=== PATIENT | male | born 1950 | race Caucasian/White ===

== ENCOUNTER 2022-11-09 15:46 | Inpatient (IN) | payer MEDICARE, SELFPAY ==
[2022-11-09] VITALS (81 sets, daily range): BP systolic 76–140; BP diastolic 43–64; PULSE 103–130; RESP 11–42; TEMP 36.6–39.9; O2SAT 81–100; BMI 24.4; BMI 26.3
--- NOTE | 2022-11-09 15:50 | ECG_ITS ---
[facility] Test Date: 2022-11-09 Pat Name: Uvaldo Barragan Department: Room: Gender: Male Intervention Specialist: : [id number] Requested By: Travis Recinos Order Number: [id number] Hope MD: Davy Sequeira M.D. Measurements Intervals [place] Rate: 110 P: 58 SD: 150 QRS: 50 QRSD: 96 T: 18 QT: 370 QTc: 502 Interpretive Statements SINUS TACHYCARDIA WITH FREQUENT VENTRICULAR PREMATURE COMPLEXES POSSIBLE LEFT ATRIAL ENLARGEMENT [-0.1mV P-WAVE IN V1/V2] NONSPECIFIC ST & T-WAVE ABNORMALITY No previous ECG available for comparison Electronically Signed On 11-09-2022 16:42:49 CDT by Davy Sequeira M.D. [id number] f
--- NOTE | 2022-11-09 15:50 | XRR_ITS ---
PROCEDURE INFORMATION: Exam: XR Chest Exam date and time: 11/09/2022 3:58 PM Age: 72 years old Clinical indication: Cough and dyspnea; Additional info: Dyspnea/cough TECHNIQUE: Imaging protocol: Radiologic exam of the chest. Views: 1 view. COMPARISON: No relevant prior studies available. FINDINGS: Lungs: Unremarkable. No consolidation. Pleural spaces: Unremarkable. No pleural effusion. No pneumothorax. Heart/Mediastinum: Unremarkable. No cardiomegaly. Bones/joints: Unremarkable. XR/XR chest 1V portable [id number] IMPRESSION: No acute findings.
--- NOTE | 2022-11-09 15:53 | ED_ITS ---
HPI - SOB/Dyspnea General: Chief Complaint: Altered Mental Status Stated Complaint: diff breathing. ams Time Seen by Provider: 11/09/22 15:49 Source: patient Mode of arrival: EMS History of Present Illness: HPI Narrative: 72-year-old male presents emergency room with altered mental status cough. He is able to answer some questions states last 2 to 3 days he has not been feeling well. Cough has been nonproductive. Denies abdominal pain does have some upper left chest pain he is complaining of shortness of breath EMS report his blood pressure was in the 60s systolic at the scene as well as a oxygen sat in the 80s he is on a 10L nonrebreather sats are now in the upper 90s. He was given 5 mg of IV push epi in route and has a blood pressure initially of 140 systolic. MD elicited complaint: shortness of breath and cough Onset (ago): day(s) (2-3) Context: recent illness Severity: moderate Exacerbating factors: nothing Relieving factors: nothing Known history of: COPD Associated symptoms: Reports chest congestion, cough and fever(s); Deny abdominal pain, chest pain, diaphoresis, dizziness, extremity pain, hemoptysis, lightheadedness, myalgias, nausea, orthopnea, palpitations, paresthesias, polydipsia, polyuria, rash, sense of impending doom, syncope, vomiting or other Treatment prior to arrival: oxygen Review of Systems Const: Reports: fever(s), chills and malaise; Denies: diaphoresis Card: Denies: chest pain, palpitations, lightheadedness, syncope or orthopnea Resp: Reports: chest congestion; Denies: hemoptysis GI: Denies: abdominal pain, nausea or vomiting Musc: Denies: extremity pain Neuro: Denies: dizziness Endo: Denies: polyuria or polydipsia PFSH ED PFSH: Medical History (Updated 11/10/22 @ 10:23 by Travis Kyle DO) BPH (benign prostatic hyperplasia) Hypertension Surgical History (Updated 11/09/22 @ 18:21 by Fernando Vadlez MD) No pertinent past surgical history Family History (Updated 11/09/22 @ 18:22 by Fernando Valdez MD) Father CAD (coronary artery disease) Cancer Pancreatic cancer Mother Alzheimer's dementia Social History (Updated 11/09/22 @ 18:21 by Fernando Valdez MD) Smoking and tobacco status: never smoked Alcohol intake: never Substance/Drug Use: never Physical Exam Const: GENERAL APPEARANCE: cooperative and comfortable ORIENTATION/C ONSCIOUSNESS: Yes awake, Yes oriented to person, Yes oriented to place and Yes oriented to time HENMT: COMMON NORMALS: normocephalic, atraumatic and hearing grossly normal bilaterally HEAD & SCALP: normocephalic and atraumatic Resp: COMMON NORMALS: normal respiratory effort, No retractions, No use of accessory muscles and clear to auscultation bilaterally AUSCULTATION: clear to auscultation bilaterally Cardio: RATE: tachycardic GI: COMMON NORMALS: Soft to palpation and No hepatosplenomegaly present AUSCULTATION: Yes normoactive bowel sounds PALPATION: Yes Soft to palpation, No Tenderness to palpation present (GI), No Guarding due to palpation present (GI) and Yes No hepatosplenomegaly present Extremity: COMMON NORMALS: normal to inspection, capillary refill normal, no clubbing, cyanosis or edema, no calf tenderness and no pedal edema Neuro: SENSORIUM/ORIENTATION: Yes oriented to person, Yes oriented to place and Yes oriented to time Skin: COMMON NORMALS: no rashes or lesions noted GENERAL SKIN EXAM: no rashes or lesions noted Course Vital Signs: Vital signs: Vital Signs Temperature 98.5 F 11/10/22 04:20 Pulse Rate 100 11/10/22 08:05 Respiratory Rate 30 H 11/10/22 08:00 Blood Pressure 95/58 11/10/22 08:00 Pulse Oximetry 97 11/10/22 08:00 Oxygen Delivery Me thod Nasal Cannula 11/10/22 07:58 Oxygen Flow Rate 4 11/10/22 07:58 MDM - SOB/Dyspnea Medical Decision Making Urine shows cystitis CT. Patient arrived in septic shock with hypoxia. CTA of the chest shows no pulmonary emboli. Possible pneumonitis developing although there is no clear infiltrates. He did respond well to initial fluid bolus he was given fluid beyond the fluid bolus because of acute renal failure suspect that his diarrhea that the reported recently is because significant volume loss. He is also been started on antibiotics. Discussed with hospitalist orders written. Will admit to ICU Medical Records I reviewed the patient's medical records. Lab Data I reviewed the patient's lab results. 11/10/22 02:24 11/10/22 02:24 Labs/Radiology: Radiology Impressions Chest/Abdomen/Pelvis CT 11/09/22 16:28 IMPRESSION: 1. No CTA evidence for proximal segmental or larger pulmonary emboli. Respiratory motion artifact limits definitive exclusion of small peripheral pulmonary emboli. No thoracic aortic aneurysm or thoracic aortic dissection. 2. No regions of consolidation or definite pneumonia. 3. Moderate coronary arterial atherosclerotic vascular calcifications. IMPRESSION: 1. Moderately thickened irregular bladder wall. This is suggestive of cystitis. Recommend correlation with urinalysis findings. 2. Moderate to severely enlarged prostate, as noted above. 3. Possible gallbladder sludge. 4. Left intrarenal calculi, as noted above. No hydronephrosis, ureterectasis or ureteral calculi. 5. Complex left kidney mid zone to lower pole 3.9 x 6.5 x 5.8 cm cyst. Recommend non emergent sonography for further assessment. 6. Other nonacute findings, as noted above. COMMENTS: Consistent with the [place] [employer]'s Incidental Findings Committee white paper (J Am Karis Radiol 2018): Any incidental renal lesion less than 1 cm or classified as too small to characterize, or any incidental cystic renal lesion characterized as simple-appearing, is likely benign. No follow-up imaging is recommended for these lesions per consensus recommendations based on imaging criteria. ADDENDUM: 11/09/22 1834 THIS REPORT CONTAINS FINDINGS THAT MAY BE CRITICAL TO PATIENT CARE. The findings were verbally communicated via telephone conference at 6:32 PM CDT on 11/09/[address] Carina Valdez. The findings were acknowledged and understood. Head CT 11/09/22 16:28 IMPRESSION: No acute intracranial abnormality. Gallbladder Ultrasound 11/09/22 19:51 IMPRESSION: 1. Normal gallbladder. No stones or sludge identified by ultrasound. 2. Negative liver. 3. No bile duct dilatation. Soft Tissue Ultrasound 11/10/22 00:08 IMPRESSION: 1. Moderate amount of edema centered in the supraclavicular region but also extending along the posterior back. There is no focal collection. This edema is also noted on the CT from 11/09/2022. Uncertain etiology. Correlate with possible attempts at vascular access. Consider a small amount of bleeding or cellulitis. The soft tissues edema is in the area of the subclavian and axillary vein and artery. 2. No focal collection. Chest X-Ray 11/10/22 07:00 IMPRESSION: Further mildly decreased lung volumes with mild accentuation of the pulmonary vascularity. Increased mild left basilar atelectasis/interstitial opacities. Renal Ultrasound 11/10/22 08:05 IMPRESSION: 1. No hydronephrosis in either kidney. 2. Bilateral simple cysts as described above largest in the LEFT measuring 4.4 x 4.5 x 5.6 cm in the LEFT mid kidney 3. Merlos catheter. Laboratory Results WBC 9.8 10^3/uL (4.0-10.0) 11/09/22 16:00 RBC 4.85 10^6/uL (4.1-5.3) 11/09/22 16:00 Hgb 14.5 g/dL (11.7-16.6) 11/09/22 16:00 Hct 43.5 % (42.0-52.0) 11/09/22 16:00 MCV 89.7 fl (80-94) 11/09/22 16:00 MCH 29.9 pg (28.0-34.0) 11/09/22 16:00 MCHC 33.3 g/dL (30.0-36.0) 11/09/22 16:00 RDW 13.3 % (12.1-15.1) 11/09/22 16:00 Plt Count 124 10^3/cmm (130-400) L 11/09/22 16:00 MPV 9.8 fL (7.4-10.4) 11/09/22 16:00 Neut % (Auto) 93.6 % 11/09/22 16:00 Lymph % (Auto) 4.1 % 11/09/22 16:00 [place] % (Auto) 1.7 % 11/09/22 16:00 Eos % (Auto) 0.2 % 11/09/22 16:00 Baso % (Auto) 0.2 % 11/09/22 16:00 Neut # (Auto) 9.21 10^3/uL (1.8-7.7) H 11/09/22 16:00 Lymph # (Auto) 0.4 10^3/uL (0.8-4.8) L 11/09/22 16:00 [place] # (Auto) 0.2 10^3/uL (0.2-0.9) 11/09/22 16:00 Eos # (Auto) 0.0 10^3/uL (0.0-0.8) 11/09/22 16:00 Baso # (Auto) 0.0 10^3/uL (0.0-0.1) 11/09/22 16:00 Nucleated RBC % (auto) 0 % 11/09/22 16:00 Nucleated RBCs # 0.0 /100WBC 11/09/22 16:00 Specimen Type Arterial 11/09/22 16:13 Sample Site Radial, left 11/09/22 16:13 ABG pH 7.33 (7.35-7.45) L 11/09/22 16:13 ABG pCO2 25.5 mmHg (35-45) L 11/09/22 16:13 ABG pO2 90.6 mmHg (80.0-100.0) 11/09/22 16:13 ABG HCO3 13.4 mmol/L (22-26) L 11/09/22 16:13 ABG O2 Saturation 97.3 11/09/22 16:13 ABG Base Excess -10.6 mmol/L (-2.0-2.0) L 11/09/22 16:13 Michael Test Pos 11/09/22 16:13 A-a O2 Gradient 3.3 mmHg (5-10) L 11/09/22 16:13 Hematocrit 46.4 % (42-52) 11/09/22 16:13 Hgb O2 Saturation 95.8 % (95-100) 11/09/22 16:13 Carboxyhemoglobin 0.7 %THgb (0.4-20.1) 11/09/22 16:13 Methemoglobin 0.8 % (0.4-1.5) 11/09/22 16:13 Total Hemoglobin 15.1 g/dL (14-18) 11/09/22 16:13 Sodium 138.0 mmol/L (131-143) 11/09/22 16:13 Potassium 3.3 mmol/L (3.5-5.0) L 11/09/22 16:13 Glucose 115.0 mg/dL (70-115) 11/09/22 16:13 Ionized Calcium 1.1 mmol/L (1.1-1.4) 11/09/22 16:13 O2 Delivery Device Nrb 11/09/22 16:13 O2 Liters/Min 9.0 % 11/09/22 16:13 Glass Calibrator ID glc 11/09/22 16:13 Sodium 142 mmol/L (136-145) 11/09/22 16:00 Potassium 3.1 mmol/L (3.5-5.1) L 11/09/22 16:00 Chloride 107 mmol/L (98-107) 11/09/22 16:00 Carbon Dioxide 16 mmol/L (22-29) L 11/09/22 16:00 Anion Gap 22.1 (5-19) H 11/09/22 16:00 BUN 28 mg/dL (8-23) H 11/09/22 16:00 Creatinine 3.1 mg/dL (0.7-1.2) H 11/09/22 16:00 GFR Calculation Not Reportable 11/09/22 16:00 Glucose 104 mg/dL (65-115) 11/09/22 16:00 Calculated Osmolality 300 mOsm/kg (285-295) H 11/09/22 16:00 Lactic Acid 8.3 mmol/L (0.5-2.2) H* 11/09/22 16:00 Calcium 7.6 mg/dL (8.5-10.5) L 11/09/22 16:00 Total Bilirubin 0.7 mg/dL (0.15-1.2) 11/09/22 16:00 AST 30 U/L (0-40) 11/09/22 16:00 ALT 19 U/L (0-41) 11/09/22 16:00 Alkaline Phosphatase 53 U/L (40-130) 11/09/22 16:00 Creatine Kinase 187 U/L (39-308) 11/09/22 16:00 Troponin T Baseline 43 ng/L (0-15) H 11/09/22 16:00 Total Protein 5.1 g/dL (6.6-8.7) L 11/09/22 16:00 Albumin 3.1 g/dL (3.5-5.2) L 11/09/22 16:00 Globulin 2.0 g/dL (1.3-4.6) 11/09/22 16:00 Lipase 60 U/L (13-60) 11/09/22 16:00 Critical Care Time Critical Care Time: Critical Care Time: Yes Total Critical Care Time: 45 Attestation: The high probability of a clinically significant, sudden or life threatening deterioration of the patient's sepsis cardiovascular renal system(s) required my full and direct attention, intervention and personal management. The critical care time is as shown. This time is in addition to time spent performing any reported procedures but includes the following: [x] Data and vital sign review and interpretation [x] Patient assessment, examination and intervention [x] Documentation [x] Medication orders and management Discharge Plan Discharge Patient Disposition: Admitted As Inpatient Admit Provider: Fernando Valdez Clinical Impression: Acute respiratory failure with hypoxia, Acute renal failure, Acute pyelonephritis, Urinary tract infection, Sepsis, Lactic acidosis, Septic shock Condition: Stable Coding Level of Care Code ED Sales Superintendent for Eva Montaño
[2022-11-09 16:23] LABS: ABG PCO2 25.5 mmHg (35-45); ABG PH Result 7.33 (7.35-7.45); Alveolar-Arterial Oxygen Gradi 3.3 mmHg (5-10); Arterial Blood Gas Hematocrit 46.4 % (42-52); Base Excess ABG -10.6 mmol/L (-2.0-2.0); Blood Gas Allen Test Pos; Blood Gas Operator Identificat glc; Blood Gas Sample Site Radial, left; Blood Gas Sample Type Arterial; Carboxyhemoglobin 0.7 %THgb (0.4-20.1); HCO3 ABG 13.4 mmol/L (22-26); HGB O2 Sat 95.8 % (95-100); Ionized Calcium Level - ABG 1.1 mmol/L (1.1-1.4); Methemoglobin 0.8 % (0.4-1.5); Oxygen Device NRB; Oxygen Saturation ABG 97.3; PO2 ABG 90.6 mmHg (80.0-100.0); Potassium Level - ABG 3.3 mmol/L (3.5-5.0); Total Hemoglobin 15.1 g/dL (14-18)
--- NOTE | 2022-11-09 16:28 | CTR_ITS ---
PROCEDURE INFORMATION: Exam: CTA Chest With Contrast Exam date and time: 11/09/2022 5:43 PM Age: 72 years old Clinical indication: Other: Dr requested without a reason given; Fever and shortness of breath; Additional info: Hypoxia TECHNIQUE: Imaging protocol: Computed tomographic angiography of the chest with contrast. Exam focused on the arteries. 3D rendering (Not supervised by radiologist): MIP and/or 3D reconstructed images were created by the technologist. Radiation optimization: All CT scans at this facility use at least one of these dose optimization techniques: automated exposure control; mA and/or kV adjustment per patient size (includes targeted exams where dose is matched to clinical indication); or iterative reconstruction. Contrast material: OMNI 350; Contrast volume: 100 ml; Contrast route: INTRAVENOUS (IV); REPORTING DATA: Count of CT and Cardiac NM exams in prior 12 months: This patient has received 0 known CTs and 0 known cardiac nuclear medicine studies in the 12 months prior to the current study. COMPARISON: CR (CHEST, ) 11/09/2022 3:58 PM RADIATION DOSE METRICS: Total DLP (mGy-cm): 1501 FINDINGS: Pulmonary arteries: No CTA evidence for proximal segmental or larger pulmonary emboli. Respiratory motion artifact limits definitive exclusion of small peripheral pulmonary emboli. Aorta: No thoracic aortic aneurysm. No thoracic aortic dissection. Trachea: The central airway is normal. Lungs: Normal lung volumes. Respiratory motion artifact is seen in the lungs, which limits assessment. Mild dependent atelectasis is seen. No regions of consolidation.No interlobular septal thickening or honeycombing seen to suggest interstitial lung disease on CT. Pleural spaces: No pneumothorax. No pleural effusion. Heart: The heart size is normal. Moderate left coronary arterial atherosclerotic vascular calcifications. Mild mitral annulus ossifications. No pericardial effusion. Normal RV/LV ratio of 0.9. Lymph nodes: No enlarged lymph nodes. Bones/joints: No acute osseous abnormalities seen. Moderate degenerative disc disease changes and small degenerative osteophytes are seen throughout the thoracic spine. There is 0.1 cm anterolisthesis of T4 on T5. Soft tissues: Unremarkable. PROCEDURE INFORMATION: Exam: CT Abdomen And Pelvis With Contrast Exam date and time: 11/09/2022 5:43 PM Age: 72 years old Clinical indication: Other: Dr requested without a reason given; Fever and shortness of breath; Additional info: Hypoxia TECHNIQUE: Imaging protocol: Computed tomography of the abdomen and pelvis with contrast. Radiation optimization: All CT scans at this facility use at least one of these dose optimization techniques: automated exposure control; mA and/or kV adjustment per patient size (includes targeted exams where dose is matched to clinical indication); or iterative reconstruction. Contrast material: OMNI 350; Contrast volume: 100 ml; Contrast route: INTRAVENOUS (IV); REPORTING DATA: Count of CT and Cardiac NM exams in prior 12 months: This patient has received 0 known CTs and 0 known cardiac nuclear medicine studies in the 12 months prior to the current study. COMPARISON: CR (CHEST, ) 11/09/2022 3:58 PM RADIATION DOSE METRICS: Total DLP (mGy-cm): 1501 FINDINGS: Liver: Normal liver attenuation. No mass. Gallbladder and bile ducts: No calcified stones. Some heterogeneous attenuation areas in the gallbladder, suggestive of sludge. No biliary ductal dilatation. Pancreas: Unremarkable CT appearance of the pancreatic parenchyma. No ductal dilatation. Spleen: Normal splenic parenchymal attenuation. No splenomegaly. The spleen measures 9.2 cm in length. Adrenal glands: Normal CT appearance of the adrenals. No mass. Kidneys and ureters: Left kidney upper pole 0.7 x 0.7 cm calculus. Left kidney lower pole 0.2 cm calculus. Left kidney mid zone 0.4 x 0.5 cm calculus. Complex left kidney mid zone to lower pole 3.9 x 6.5 x 5.8 cm cyst is seen with Hounsfield units of 45.2 HU. Recommend non emergent sonography for further assessment. Simple left kidney mid zone 3.1 x 3.1 cm cyst is seen. Simple right kidney mid zone 1.9 x 1.9 cm and left kidney upper pole 1.1 x 1 cm cysts. No hydronephrosis, ureterectasis or ureteral calculi. Stomach and bowel: Mildly distended fluid-filled stomach. The noncontrast opacified small bowel loops appear unremarkable. The noncontrast opacified loops of colon show [id number] proximal sigmoid colonic diverticulosis, without CT evidence of diverticulitis. The lack of orally administered contrast material limits assessment. Appendix: No CT evidence of appendicitis. Intraperitoneal space: No free air. No significant fluid collection. Vasculature: No abdominal aortic aneurysm. IVC and portal venous structures are unremarkable. Lymph nodes: No enlarged lymph nodes. Urinary bladder: Moderately thickened irregular bladder wall is seen. This is suggestive of cystitis. Recommend correlation with urinalysis findings. Reproductive: The prostate demonstrates moderate to severe nonspecific enlargement. The seminal vesicles are normal. Recommend correlation with clinical exam findings and PSA level evaluation. Bones/joints: Severe degenerative disc disease changes with vacuum phenomenon are seen in the mid to lower thoracic spine. Severe degenerative disc disease changes are seen at the L5-S1 level. Mild bilateral hip degenerative changes are seen. Moderate symphysis pubis and sacroiliac joint degenerative changes. Soft tissues: Unremarkable. CT/CT angio chest w abd pel w con IMPRESSION: 1. No CTA evidence for proximal segmental or larger pulmonary emboli. Respiratory motion artifact limits definitive exclusion of small peripheral pulmonary emboli. No thoracic aortic aneurysm or thoracic aortic dissection. 2. No regions of consolidation or definite pneumonia. 3. Moderate coronary arterial atherosclerotic vascular calcifications. IMPRESSION: 1. Moderately thickened irregular bladder wall. This is suggestive of cystitis. Recommend correlation with urinalysis findings. 2. Moderate to severely enlarged prostate, as noted above. 3. Possible gallbladder sludge. 4. Left intrarenal calculi, as noted above. No hydronephrosis, ureterectasis or ureteral calculi. 5. Complex left kidney mid zone to lower pole 3.9 x 6.5 x 5.8 cm cyst. Recommend non emergent sonography for further assessment. 6. Other nonacute findings, as noted above. COMMENTS: Consistent with the [employer]'s Incidental Findings Committee white paper (J Am Karis Radiol 2018): Any incidental renal lesion less than 1 cm or classified as too small to characterize, or any incidental cystic renal lesion characterized as simple-appearing, is likely benign. No follow-up imaging is recommended for these lesions per consensus recommendations based on imaging criteria.
--- NOTE | 2022-11-09 16:28 | CTR_ITS ---
PROCEDURE INFORMATION: Exam: CT Head Without Contrast Exam date and time: 11/09/2022 5:39 PM Age: 72 years old Clinical indication: Altered mental status/memory loss; Additional info: AMS TECHNIQUE: Imaging protocol: Computed tomography of the head without contrast. Radiation optimization: All CT scans at this facility use at least one of these dose optimization techniques: automated exposure control; mA and/or kV adjustment per patient size (includes targeted exams where dose is matched to clinical indication); or iterative reconstruction. REPORTING DATA: Count of CT and Cardiac NM exams in prior 12 months: This patient has received 0 known CTs and 0 known cardiac nuclear medicine studies in the 12 months prior to the current study. COMPARISON: No relevant prior studies available. RADIATION DOSE METRICS: Total DLP (mGy-cm): 1184 FINDINGS: Brain: Normal. No hemorrhage. Unremarkable white matter. No mass effect. Cerebral ventricles: No ventriculomegaly. Paranasal sinuses: Visualized sinuses are unremarkable. No fluid levels. Mastoid air cells: Visualized mastoid air cells are well aerated. Bones/joints: Unremarkable. No acute fracture. Soft tissues: Unremarkable. CT/CT head wo con* [id number] IMPRESSION: No acute intracranial abnormality.
[2022-11-09 16:37] LABS: Basophils % 0.2 %; Eosinophils % 0.2 %; Hematocrit 43.5 % (42.0-52.0); Hemoglobin 14.5 g/dL (11.7-16.6); Lymphocytes # 0.4 10^3/uL (0.8-4.8); Lymphocytes % 4.1 %; Mean Corpuscular HGB Conc 33.3 g/dL (30.0-36.0); Mean Corpuscular Hemoglobin 29.9 pg (28.0-34.0); Mean Corpuscular Volume 89.7 fl (80-94); Mean Platelet Volume 9.8 fL (7.4-10.4); Monocytes # 0.2 10^3/uL (0.2-0.9); Monocytes % 1.7 %; Neutrophils # 9.21 10^3/uL (1.8-7.7); Neutrophils % 93.6 %; Nucleated Red Blood Cells % 0 %; Platelet Count 124 10^3/cmm (130-400); Red Blood Count 4.85 10^6/uL (4.1-5.3); Red Cell Distribution Width 13.3 % (12.1-15.1); White Blood Count 9.8 10^3/uL (4.0-10.0)
[2022-11-09] MEDS: sodium chloride 0.9% 2,449.41 ML 2449.41 ML IV (16:52)
[2022-11-09] MEDS: levofloxacin-dextrose 5 % 750 MG/150 ML PREMIX 100 MG IV (16:54)
[2022-11-09 17:13] LABS: Alanine Aminotransferase 19 U/L (0-41); Albumin Level 3.1 g/dL (3.5-5.2); Alkaline Phosphatase 53 U/L (40-130); Anion Gap 22.1 (5-19); Aspartate Amino Transferase 30 U/L (0-40); Blood Urea Nitrogen 28 mg/dL (8-23); Calcium 7.6 mg/dL (8.5-10.5); Carbon Dioxide 16 mmol/L (22-29); Chloride 107 mmol/L (98-107); Creatine Phosphokinase 187 U/L (39-308); Glucose 104 mg/dL (65-115); Lipase 60 U/L (13-60); Osmolality Calculated 300 mOsm/kg (285-295); Potassium 3.1 mmol/L (3.5-5.1); Sodium 142 mmol/L (136-145); Total Bilirubin 0.7 mg/dL (0.15-1.2); Total Protein 5.1 g/dL (6.6-8.7)
[2022-11-09 17:16] LABS: Troponin(5th) Baseline 43 ng/L (0-15)
[2022-11-09 17:30] LABS: Lactic Sepsis W/Reflex 8.3 mmol/L (0.5-2.2)
[2022-11-09] MEDS: iohexol 350 mg/mL 500 mL Btl (per mL) IV (17:57)
--- NOTE | 2022-11-09 18:01 | USR_ITS ---
PROCEDURE INFORMATION: Exam: US Duplex Lower Extremity Veins, Bilateral Exam date and time: 11/09/2022 6:17 PM Age: 72 years old Clinical indication: Other: Hypoxia, nstemi, AMS; Additional info: Dvt TECHNIQUE: Imaging protocol: Real-time duplex ultrasound of the bilateral extremities with 2-D perez scale, color Doppler flow and spectral waveform analysis including responses to compression and other maneuvers (when performed) with image documentation. Complete exam focused on the lower extremity veins. COMPARISON: CT angio chest PE protcl [id number] 11/09/2022 5:43 PM FINDINGS: Right deep veins: The common femoral, femoral, popliteal and visualized calf/posterior tibial veins are patent without thrombus. Normal Doppler waveforms. Normal compressibility and/or augmentation response. Right superficial veins: Saphenofemoral junction is patent without thrombus. Left deep veins: The common femoral, femoral, popliteal and visualized calf/posterior tibial veins are patent without thrombus. Normal Doppler waveforms. Normal compressibility and/or augmentation response. Left superficial veins: Saphenofemoral junction is patent without thrombus. Soft tissues: Unremarkable. US/[place] [id number] IMPRESSION: No evidence of deep vein thrombosis.
--- NOTE | 2022-11-09 18:13 | PM.HP ---
Providers/Chief Complaint Admitting Physician: Fernando Valdez MD Chief Complaint: diff breathing. ams History of Present Illness Uvaldo Barragan is a 72 year old male with past medical history of hypertension, BPH, who presents to [facility] due to nausea, vomiting, low blood pressures elevated heart rates, lightheadedness, presyncopal episode, increased confusion. Currently patient is alert to person, to place, not to time, he can follow commands, he is only complaint is severe left shoulder pain, he tells me that he has had left shoulder pain for some period of time, but recently the pain has worsened. Patient's is at bedside most the history was provided by patient's , she tells me that he is really in good state of health, no significant health scares, no significant hospitalizations, no underlying cardiovascular history of strokes he was told he was prediabetic, he has been eating healthy with his , and is lost roughly 20 pounds in the last few months. Yesterday he was working outside he mowed the grass he was quite active does tell me that he was using his blow torch, and he inhaled some of the noxious fumes, he did not feel well after, but nonetheless was able to get over it, denies any shortness of breath or chest pain at that time. In the evening time he started to complain of nausea and vomiting and developed 104 fevers, he sleep on separate floors, so he went to bed, in the morning when she went up and checked on him he was confused, he looked pale, diaphoretic, she checked his blood pressure there were low she tells at the top number was low and her heart his heart rates were fast, and he was confused, complained of weakness, both his arms and legs were pale, he did not really complain of shortness of breath that time no chest pain, no nausea overnight, he did have diarrhea overnight he has been vaccinated for COVID, no history of COVID throughout the household, she tells me that he has severe chills in the morning, poor appetite, remained in bed he did try to get up out of bed and slid out of bed and had a presyncopal episode, she does not think he fully passed out. She called the ambulance in the afternoon, and patient was found to be hypotensive was given fluids, was actually given 5 mg of epi, was placed on 10 L nonrebreather, I examined him while he is getting his CAT scans, looks is tachypneic,, has mottling of bilateral extremities, DP PT pulses diminished, capillary refill greater than 2 seconds, he does look flushed,, I asked him if he was out of the sun yesterday he tells me yes, does report severe chills. Patient had blood work done, which showed a lactic acid of 8.3, creatinine of 3.1 anion gap 22.1, bicarb of 16, potassium 3.1 no leukocytosis, platelet count 124, baseline troponin 43, initial chest x-ray no acute infiltrates, EKG shows sinus tachycardia, he is received a CT scan abdomen pelvis, I called the virtual radiology to get a stat read from the CT scan however I was told that currently the radiologist is reading another CAT scan, that I would receive a call back Review of Systems Const: Reports: chills and body aches; Denies: fever(s) Eyes: Denies: change in vision ENMT: Denies: throat pain Card: Reports: pre-syncope; Denies: chest pain, palpitations, edema or dyspnea on exertion Resp: Denies: dyspnea or non-productive cough GI: Reports: nausea and vomiting; Denies: abdominal pain, hematochezia or melena : Denies: flank pain, difficulty urinating, dysuria or urinary frequency Musc: Reports: joint pain; Denies: neck pain or back pain Skin/Breast: Reports: rash Neuro: Denies: headache(s) Endo: Denies: polyuria Darío/Lymph: Denies: easy bruising Medications/Allergies Home Medications Medication Instructions Recorded Confirmed Last Taken Type acetaminophen 325 mg capsule 650 mg PO QID PRN Pain 11/09/22 11/09/22 11/08/22 History (Tylenol) finasteride 5 mg tablet 5 mg PO QPM 11/09/22 11/09/22 Unknown History hydrochlorothiazide 50 mg tablet 25 mg PO BID 11/09/22 11/09/22 Unknown History naproxen sodium 220 mg capsule 220 mg PO Q8H PRN Pain 11/09/22 11/09/22 11/08/22 History (Aleve) nortriptyline 10 mg capsule 30 mg PO DAILY 11/09/22 11/09/22 Unknown History potassium chloride 20 mEq 20 meq PO DAILY 11/09/22 11/09/22 11/09/22 History tablet,extended release(part/cryst) Allergies Allergy/AdvReac Type Severity Reaction Status Date / Time No Known Allergies Allergy Verified 11/09/22 15:51 PFSH Acute PFSH: Medical History (Updated 11/09/22 @ 19:02 by Fernando Valdez MD) BPH (benign prostatic hyperplasia) Hypertension Surgical History (Updated 11/09/22 @ 18:21 by Fernando Valdez MD) No pertinent past surgical history Family History (Updated 11/09/22 @ 18:22 by Fernando Valdez MD) Father CAD (coronary artery disease) Cancer Pancreatic cancer Mother Alzheimer's dementia Social History (Updated 11/09/22 @ 18:21 by Fernando Valdez MD) Smoking and tobacco status: never smoked Alcohol intake: never Substance/Drug Use: never Vitals/I&O/Wt Last Vital Signs Temp 97.9 F 11/09/22 15:49 Pulse 113 H 11/09/22 17:30 Resp 27 H 11/09/22 17:30 BP 97/56 11/09/22 17:30 Pulse Ox 99 11/09/22 17:30 O2 Del Method Non-Rebreather 11/09/22 16:02 O2 Flow Rate 10 11/09/22 16:02 Weight last 48 hrs Weight 81.647 kg Physical Exam Const: COMMON NORMALS: alert EXAM LIMITATIONS: altered mental status GENERAL APPEARANCE: cooperative, well kempt and well developed ORIENTATION/CONSCIOUSNESS: Yes awake, Yes oriented to person and Yes oriented to place; not oriented to time HENMT: COMMON NORMALS: normocephalic, Normal external nose present and oropharynx normal HEAD & SCALP: normocephalic FACE & SINUS: normal facial exam NOSE: Normal external nose present MOUTH: Normal oral and palatal mucosa present THROAT: posterior oropharynx normal Eye: COMMON NORMALS: Equal, round and reactive pupils present, EOMs intact bilaterally, conjunctivae normal and no scleral icterus CONJUNCTIVA: Yes conjunctivae normal PUPIL: Yes Equal, round and reactive pupils present Neck/C-Spine: COMMON NORMALS: full ROM, no lymphadenopathy, no meningeal signs, Thyroid normal and No carotid bruits Lymph: LYMPHATIC: no lymphadenopathy noted Chest: COMMONS NORMALS: normal inspection of the chest Resp: COMMON NORMALS: normal respiratory effort, No retractions, No use of accessory muscles and clear to auscultation bilaterally AUSCULTATION: clear to auscultation bilaterally OTHER: Has tachypnea Cardio: COMMON NORMALS: regular rhythm, S1 normal heart sound present, S2 normal heart sound present, No murmurs present (Cardio) and Peripheral pulses 2+ throughout RATE: tachycardic RHYTHM: regular rhythm HEART SOUNDS: S1 normal heart sound present and S2 normal heart sound present PERIPHERAL PULSES: Peripheral pulses 2+ throughout GI: COMMON NORMALS: Normal to inspection, nondistended, normoactive bowel sounds present, Soft to palpation, non-tender, No hepatosplenomegaly present and no masses : COMMON NORMALS: Yes no CVA tenderness BLADDER/KIDNEY EXAM: Yes no CVA tenderness Back/Pelvis: COMMON NORMALS: no CVA tenderness Neuro: COMMON NORMALS: patient oriented x3, CN's II-XII intact bilaterally, moves all extremities, no focal motor deficits and no sensory deficits noted MENINGEAL SIGNS: Yes no meningeal signs Psych: COMMON NORMALS: mental status grossly normal, Normal thought process present, cooperative and speech normal APPEARANCE: Yes well kempt SPEECH: Yes normal speech THOUGHT PROCESS: Normal thought process present Skin: COMMON NORMALS: turgor normal and no jaundice NARRATIVE SKIN EXAM: Face, anterior chest, appear flushed, red has conjunctival injection GENERAL SKIN EXAM: turgor normal Sepsis: Is patient septic: Yes Focused sepsis exam performed: Yes Focused sepsis exam: DP PT pulses diminished bilaterally, capillary refill greater than 2 seconds, bilateral lower extremity mottling up to the level of the thighs,, tachypnea, tachycardia, encephalopathy, Data 11/09/22 16:00 11/09/22 16:00 Micro: Microbiology 11/09/22 16:07 Blood Culture - Preliminary Blood SPECIMEN COLLECTED 11/09/22 16:07 Blood Culture - Preliminary Blood SPECIMEN COLLECTED A&P Assessment and plan (1) Acute pyelonephritis: (2) Urinary tract infection: (3) Acute encephalopathy: (4) Lactic acidosis: (5) Metabolic acidosis: (6) Septic shock: (7) Acute renal failure: (8) Hypokalemia: (9) NSTEMI (non-ST elevated myocardial infarction): (10) Gallbladder sludge: (11) Left renal stone: (12) Enlarged prostate: (13) Acute respiratory failure with hypoxia: (14) Aspiration pneumonia: (15) Aspiration pneumonitis: (16) Goals of care, counseling/discussion: (17) Urinary retention: (18) Sepsis: Plan Acute hypoxic respiratory failure -Potentially secondary to aspiration pneumonia, aspiration pneumonitis -The other thought is it could be a toxic inhalation, from the fumes he inhaled yesterday afternoon Plan -We will monitor respiratory status closely -Low threshold for intubation -Respiratory therapy eval, DuoNeb treatments -On broad-spectrum antibiotic therapy -Sputum cultures, blood cultures Urinary tract infection, with acute pyelonephritis, -With underlying enlarged prostate, with concerns for urinary retention -Follow urine cultures, blood cultures -Pro-Joseph 90, CRP 106 -Follow UA -Follow blood cultures -Follow urine cultures -Continue vancomycin, Zosyn -Monitor creatinine, monitor urine output -Spoke to Dr. Pulido urology, given his left hydronephrosis and lactic acidosis, his septic shock, and I want to make sure that he does not have any stentable pathology, no underlying abscess, or obstructive uropathy. Although I spoke to virtual radiology, who advised me that there was no hydronephrosis, but did have a left kidney stone Septic shock -Likely multifactorial from UTI, pyelonephritis, respiratory failure, aspiration pneumonia -Has received sepsis bolus and blood pressures have improved 101/53 alert and awake following commands although tachycardic, tachypneic -Sepsis criteria met with lactic acidosis, shock, 10 L -Currently on fluid therapy -Stress dose steroids -Albumin therapy -Antibiotics as above -PICC line be placed, maintain MAP greater than 65 Levophed if needed NSTEMI -Serial EKGs, serial troponins, telemetry monitoring -Likely secondary to septic shock, sepsis, acute pyelonephritis -However cannot rule out underlying kidney etiology -Continue to monitor telemetry, troponins Acute renal failure --Likely sec to urinary tension, dehydration, sepsis -Monitor urine output, monitor lactic acids, monitor creatinine Acute encephalopathy, likely secondary to sepsis, UTI, aspiration pneumonia, sepsis shock Metabolic acidosis, will give 1 amp of bicarb Hypoalbuminemia, albumin therapy Hypokalemia, will replace IV Lactic acidosis, secondary to septic shock, secondary to UTI, aspiration pneumonia as above trend lactic acids Left kidney stone Moderate to severely enlarged prostate, will monitor, might require a prostatic ultrasound to evaluate for prostatic abscess based on clinical progress Goals of care discussion, spoke to patient's , he is a full code however he does have paperwork filled out for his living well, he does not want life-sustaining measures if there is no likelihood of meaningful recovery Lovenox for DVT prophylaxis Full code Spoke to patient, spoke to , spoke to radiologist at [facility], spoke to urology, spoke to ER physician, spoke to nursing staff Attestations Medical Necessity Statement*: Patient requires hospitalization, inpatient, greater than 2 midnights, for sepsis, septic shock, UTI, pyelonephritis, enlarged prostate, urinary retention, left kidney stone, acute respiratory failure, aspiration, aspiration pneumonitis, lactic acidosis, acute renal failure, metabolic acidosis, Coding Level of Care Code Critical Care >/= 30 minutes Critical care time (in minutes): 120 The high probability of a clinically significant, sudden or life threatening deterioration, as referenced in this documentation, required my full and direct attention, intervention and personal management. The critical care time shown is in addition to time spent performing any reported separately billable procedures and includes the following: [x] Data and vital sign review and interpretation [x] Patient assessment, examination and intervention [x] Medication orders and management [x] Patient/Family updates as able [x] Care Coordination and Documentation. Diagnoses Acute pyelonephritis N10 Urinary tract infection N39.0 Acute encephalopathy G93.40 Lactic acidosis E87.20 Metabolic acidosis E87.20 Septic shock A41.9; R65.21 Acute renal failure N17.9 Hypokalemia E87.6 NSTEMI (non-ST elevated myocardial infarction) I21.4 Gallbladder sludge K82.8 Left renal stone N20.0 Enlarged prostate N40.0 Acute respiratory failure with hypoxia J96.01 Aspiration pneumonia J69.0 Aspiration pneumonitis J69.0 Goals of care, counseling/discussion Z71.89 Urinary retention R33.9 Sepsis A41.9
[2022-11-09 18:17] LABS: Reflex Lactate Order REFLEX LACTIC ORDERD
[2022-11-09 18:22] LABS: Erythrocyte Sedimentation Rate < 1 mm/hr (0-10)
[2022-11-09 18:39] LABS: Troponin 5 2HR 38.44 ng/L (0-15); Troponin 5 2HR Delta -4.56 ABS# (0-10)
[2022-11-09 18:40] LABS: C Reactive Protein 106.7 mg/L (0.0-4.9)
[2022-11-09 18:48] LABS: Procalcitonin 90.38 ng/mL (0-0.5)
[2022-11-09 19:16] LABS: Bilirubin Urine 1+ (Negative); Blood Urine 3+ (Negative); Glucose Urine UA Norm (Normal); Ketones Urine 1+ (Negative); Nitrate Urine Negative (Negative); Protein Urine 2+ (Negative); Urine Appearance Cloudy (CLEAR); Urine Color Dark Yellow (Yellow); pH Urine 5 (5-7)
[2022-11-09 19:17] LABS: Add Urine Culture? Yes; Add Urine Microscopic? YES; Bacteria Urine 2+ /hpf; Leukocyte Esterase Urine 2+ (Negative); Urobilinogen Urine Norm (Negative); WBC Urine TOO NUMEROUS TO CNT /hpf (0-5)
[2022-11-09 19:24] LABS: Magnesium 1.2 mg/dL (1.7-2.3)
--- NOTE | 2022-11-09 19:51 | US_ITS ---
WS: [id number] RIGHT UPPER QUADRANT ULTRASOUND HISTORY: sludge COMPARISON: CT 11/09/2022 Liver: 15.0 cm in length. Normal size liver and echogenicity. No bile duct dilatation or mass. Portal Vein: Normal hepatopetal flow with monophasic waveform. Gallbladder: Normally distended gallbladder with no stones or wall thickening. No sludge identified b y ultrasound. Gallbladder wall is top normal size. No adjacent edema. CBD: 0.5 cm Pancreas: Completely obscured. Right kidney: 11.2 cm in length. Normal size and echogenicity. No hydronephrosis or mass. Central pel brandon cyst with a maximum diameter of 1.7 cm. Aorta and IVC: Unremarkable abdominal aorta and IVC. No ascites. US/US gall bladder [id number] IMPRESSION: 1. Normal gallbladder. No stones or sludge identified by ultrasound. 2. Negative liver. 3. No bile duct dilatation.
[2022-11-09 20:17] LABS: Cortisol Random 44.37 ug/dL (2.47-19.5)
--- NOTE | 2022-11-09 20:36 | XRR_ITS ---
PROCEDURE INFORMATION: Exam: XR Chest Exam date and time: 11/09/2022 7:37 PM Age: 72 years old Clinical indication: Device placement; Picc; Additional info: Dyspnea/cough TECHNIQUE: Imaging protocol: Radiologic exam of the chest. Views: 1 view. COMPARISON: CR (CHEST, ) 11/09/2022 3:58 PM FINDINGS: Tubes, catheters and devices: There has been placement of a right upper extremity PICC line catheter with tip overlying the lower superior vena cava region. Lungs: There are mildly decreased lung volumes with mild accentuation of the pulmonary vascularity. There are no confluent interstitial or airspace opacities. Pleural spaces: There are no pleural effusions or pneumothorax. Heart/Mediastinum: The heart size is normal. There is a mildly tortuous thoracic aorta. The trachea is in the midline. Bones/joints: No acute abnormalities. Mild shoulder degenerative changes are seen. Soft tissues: Multiple external leads are seen overlying the chest, limiting assessment. XR/XR chest 1V portable [id number] IMPRESSION: 1. Mildly decreased lung volumes with mild accentuation of the pulmonary vascularity. No confluent infiltrates in the lungs. 2. Interval placement of a right upper extremity PICC line catheter with tip overlying the lower superior vena cava region.
--- NOTE | 2022-11-09 20:38 | PC.NURSE ---
Consulted by house charge for picc placement. Consent obtained by myself, patient, an . All risk an benefits discussed. Risk included dvt and infection. RUE scanned with US an basilic vein was the best option. Vein was straight, 5 mm, an free of visible clot. Pt draped in usual sterile fashion. Using real time US lidocaine injected, vein accessed, and picc floated into position. Chest xray obtained and waiting on tip confirmation. EBL less then 5 ml. No bleeding no hematoma. Pt arm circumference is 29 cm at 10 cm above the ac fossa.
[2022-11-09 20:46] LABS: Reflex Lactate Order REFLEX LACTIC ORDERD
[2022-11-09 21:00] LABS: Lactate (Lactic Acid level) 3.1 mmol/L (0.5-2.2)
[2022-11-09 21:01] LABS: Troponin 5 6HR 46.96 ng/L (0-15)
[2022-11-09 21:04] LABS: Estmated Average Glucose 117; Hemoglobin A1C 5.7 % (4.0-6.0)
[2022-11-09 21:10] LABS: Chol HDL Ratio 3.15 mg/dL (1.0-5.00); Cholesterol 129 mg/dL (0-200); HDL Cholesterol 41 mg/dL (60-100); LDL Cholesterol Calculated 73 mg/dL (50-129); LDL HDL Ratio 1.78 RATIO (0.00-3.22); Thyroid Stimulating Hormone 2.17 uIU/mL (0.27-4.20); Triglycerides 75 mg/dL (0-150)
[2022-11-09 21:12] LABS: Troponin 5 6HR Delta 3.96 ng/L (0-12)
[2022-11-09] MEDS: sodium bicarbonate 1 mEq/mL SDV 50mL 50 MEQ IVP (21:20)
[2022-11-09] MEDS: meropenem 1,000 MG in sodium chloride 0.9% (plus) 50 ML 100 MG IV (21:20)
[2022-11-09] MEDS: lidocaine 1% 5 ML in potassium chloride premix 100 ML 26.25 ML IV (21:21)
[2022-11-09] MEDS: sodium chloride 0.9% 1,000 ML 125 ML IV (21:22)
[2022-11-09] MEDS: pantoprazole 40 mg SDV IVP (21:22)
[2022-11-09] MEDS: enoxaparin 40 mg/0.4 mL Syringe SUBCUT (21:23)
[2022-11-09] MEDS: albumin 25 G/100 ML BAG 60 G IV (21:23)
[2022-11-09] MEDS: sodium chloride 0.9% 1,000 ML 150 ML IV (21:50)
[2022-11-09 21:58] LABS: Adenovirus Not Detected (NOT DETECT); Chlamydia Pneumoniae Not Detected (NOT DETECT); Coronavirus 229E,HKU1,NL63,OC4 Not Detected (NOT DETECT); Human Metapneumovirus Not Detected (NOT DETECT); Human Rhinovirus/Enterovirus Not Detected (NOT DETECT); Influenza A Not Detected (NOT DETECT); Influenza A H1 Not Detected (NOT DETECT); Influenza A H1-2009 Not Detected (NOT DETECT); Influenza A H3 Not Detected (NOT DETECT); Influenza B Not Detected (NOT DETECT); Mycoplasma Pneumoniae Not Detected (NOT DETECT); Parainfluenza Virus Type 1 Not Detected (NOT DETECT); Parainfluenza Virus Type 2 Not Detected (NOT DETECT); Parainfluenza Virus Type 3 Not Detected (NOT DETECT); Parainfluenza Virus Type 4 Not Detected (NOT DETECT); Respiratory Syncytial Virus A Not Detected (NOT DETECT); Respiratory Syncytial Virus B Not Detected (NOT DETECT); SARS-COV-2 Not Detected (NOT DETECT)
[2022-11-09 22:16] LABS: INR 1.82 (0.8-1.2)
[2022-11-09 22:17] LABS: Fibrinogen 384 mg/dL (174-498); Partial Thromboplastin Time 40.1 SECONDS (23.9-36.7)
--- NOTE | 2022-11-09 22:25 | PC.PHAR ---
Pharmacokinetic dosing service Date: 11/09/22 Time: 2224 Objective: Patient: RENA HINOJOSA Floor: ICU-9 Age: 72 yo Serum creatinine: 3.1 mg/dL Height: 72.0 Inches Weight (kg): 81.647 Diagnosis: Relevant medical/social history: Cultures and sensitivities: Other labs: Assessment: IBW (kg): 77.60 Dosing wt(kg): 81.647 Estimated Creatinine clearance (ml/min): 24.0 CRCL method: Cockcroft and Gault using ibw(default). Drug selected: Vancomycin Loading dose (mg): 0 Vd (liters): 73.5 (factor used: 0.9 L/kg) Ismael (hr-1): 0.024 Half life (hrs): 28.88 Recommended dose: 1250 mg Interval: 36 hrs Infusion time (hrs): 1.5 Predicted peak (mcg/mL): 28.9 Predicted trough (mcg/mL): 12.63 Total body weight is being used for vancomycin dosing. Renal function is stable [ ] /unstable [ ] Recommendations: Give Vancomycin 1250 mg q 36 hrs with an expected Cpeak of 28.9 mcg/ml and an expected Ctrough of 12.63 mcg/ml Renal dosing of other antibiotics (review renal dosing of other medications and list guidelines here): Thank you for the consult, will continue to follow. Signature: Amena Recinos [facility]
[2022-11-09 22:27] LABS: D Dimer 12.26 ug/mIFEU (0-0.59)
[2022-11-09] MEDS: vancomycin 1,250 MG/250 ML PIGGYBACK 250 MG IV (23:05)
[2022-11-09] MEDS: acetaminophen 325 mg Tablet 650 MG PO (23:05)
[2022-11-09] MEDS: ipratropium-albuterol 3 mL Neb INHALATION (23:06)
--- NOTE | 2022-11-09 23:12 | ECG_ITS ---
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 Measurements Intervals Clarence Rate: 112 P: 42 AK: 150 QRS: 29 QRSD: 82 T: 34 QT: 321 QTc: 439 Interpretive Statements SINUS TACHYCARDIA NONSPECIFIC T-WAVE ABNORMALITY ABNORMAL RHYTHM ECG Compared to ECG 11/09/2022 15:55:05 Ventricular premature complex(es) no longer present T-wave abnormality still present Electronically Signed On 11-10-2022 5:49:45 CDT by Trisha Vences M.D. [id number]
[2022-11-10] VITALS (223 sets, daily range): BP systolic 78–134; BP diastolic 47–87; PULSE 64–117; RESP 12–41; TEMP 36.9; O2SAT 84–100
--- NOTE | 2022-11-10 00:08 | US_ITS ---
WS: [id number] ULTRASOUND SOFT TISSUES LEFT supraclavicular region. HISTORY: Fluid filled collection by left shoulder COMPARISON: None available. TECHNIQUE: 2-D and color Doppler imaging is submitted. Ultrasound directed to the LEFT supraclavicular area in the region of swelling. There is soft tissue edema but no focal collection. Edema is interspersed throughout the soft tissues. Fluid and edema ext ends into the posterior upper LEFT back. There is soft tissue edema was also noted on the CT of 11/09/2022. There is a large amount of edema in the supraclavicular region on the LEFT. The entire extent is not included and extends superior into t he neck. There is edema interspersed within the fat. US/US soft tissue/extremity [id number] IMPRESSION: 1. Moderate amount of edema centered in the supraclavicular region but also ex tending along the posterior back. There is no focal collection. This edema is a lso noted on the CT from 11/09/2022. Uncertain etiology. Correlate with possible attempts at vascular access. Consider a small amount of bleeding or cellulitis. The soft tissues edema is in the area of the subclavian and axillary vein and artery. 2. No focal collection.
[2022-11-10 00:13] LABS: ABG PCO2 22.7 mmHg (35-45); ABG PH Result 7.39 (7.35-7.45); Alveolar-Arterial Oxygen Gradi 3.8 mmHg (5-10); Arterial Blood Gas Hematocrit 43.3 % (42-52); Blood Gas Allen Test Pos; Blood Gas Sample Site Radial, right; Blood Gas Sample Type Arterial; Carboxyhemoglobin 0.9 %THgb (0.4-20.1); HCO3 ABG 13.8 mmol/L (22-26); HGB O2 Sat 96.4 % (95-100); Methemoglobin 1.2 % (0.4-1.5); Oxygen Device OXY MASK; Oxygen Saturation ABG 98.5; PO2 ABG 90.3 mmHg (80.0-100.0); Potassium Level - ABG 4.2 mmol/L (3.5-5.0); Total Hemoglobin 14.1 g/dL (14-18)
[2022-11-10] MEDS: acetaminophen 1,000 MG/100 ML PIGGYBACK 400 MG IV (00:30)
[2022-11-10 00:55] LABS: Basophils % 0.2 %; Hematocrit 39.7 % (42.0-52.0); Hemoglobin 13.5 g/dL (11.7-16.6); Lymphocytes # 0.2 10^3/uL (0.8-4.8); Lymphocytes % 2.1 %; Mean Corpuscular Hemoglobin 29.2 pg (28.0-34.0); Mean Corpuscular Volume 85.7 fl (80-94); Mean Platelet Volume 10.4 fL (7.4-10.4); Monocytes # 0.3 10^3/uL (0.2-0.9); Monocytes % 2.5 %; Neutrophils % 94.5 %; Nucleated Red Blood Cells % 0 %; Platelet Count 107 10^3/cmm (130-400); Red Blood Count 4.63 10^6/uL (4.1-5.3); Red Cell Distribution Width 13.4 % (12.1-15.1); White Blood Count 11.4 10^3/uL (4.0-10.0)
[2022-11-10] MEDS: sodium bicarbonate 150 MEQ in dextrose 5% 1,000 ML 100 MEQ IV ×3 (01:02→21:52)
[2022-11-10 01:12] LABS: Alanine Aminotransferase 20 U/L (0-41); Alkaline Phosphatase 41 U/L (40-130); Anion Gap 19.4 (5-19); Aspartate Amino Transferase 45 U/L (0-40); Blood Urea Nitrogen 36 mg/dL (8-23); Calcium 7.1 mg/dL (8.5-10.5); Carbon Dioxide 14 mmol/L (22-29); Chloride 108 mmol/L (98-107); Globulin 1.9 g/dL (1.3-4.6); Glucose 62 mg/dL (65-115); Osmolality Calculated 290 mOsm/kg (285-295); Potassium 4.4 mmol/L (3.5-5.1); Sodium 137 mmol/L (136-145); Total Bilirubin 0.8 mg/dL (0.15-1.2); Total Protein 4.9 g/dL (6.6-8.7)
[2022-11-10 01:19] LABS: Slide Review Slide Review Perform
[2022-11-10 02:52] LABS: Basophils % 0.3 %; Hematocrit 40.6 % (42.0-52.0); Hemoglobin 13.3 g/dL (11.7-16.6); Lymphocytes # 0.3 10^3/uL (0.8-4.8); Lymphocytes % 2.5 %; Mean Corpuscular HGB Conc 32.8 g/dL (30.0-36.0); Mean Corpuscular Hemoglobin 28.7 pg (28.0-34.0); Mean Corpuscular Volume 87.7 fl (80-94); Mean Platelet Volume 10.3 fL (7.4-10.4); Monocytes # 0.3 10^3/uL (0.2-0.9); Monocytes % 2.5 %; Neutrophils # 12.68 10^3/uL (1.8-7.7); Neutrophils % 93.1 %; Nucleated Red Blood Cells % 0 %; Platelet Count 112 10^3/cmm (130-400); Red Blood Count 4.63 10^6/uL (4.1-5.3); Red Cell Distribution Width 13.5 % (12.1-15.1); White Blood Count 13.6 10^3/uL (4.0-10.0)
[2022-11-10 03:00] LABS: INR 2.18 (0.8-1.2)
[2022-11-10] MEDS: ipratropium-albuterol 3 mL Neb INHALATION ×4 (03:00→20:15)
[2022-11-10 03:15] LABS: Alanine Aminotransferase 22 U/L (0-41); Albumin Level 2.9 g/dL (3.5-5.2); Alkaline Phosphatase 42 U/L (40-130); Anion Gap 20.5 (5-19); Aspartate Amino Transferase 49 U/L (0-40); Blood Urea Nitrogen 39 mg/dL (8-23); C Reactive Protein 149.2 mg/L (0.0-4.9); Carbon Dioxide 14 mmol/L (22-29); Chloride 109 mmol/L (98-107); Globulin 1.8 g/dL (1.3-4.6); Glucose 79 mg/dL (65-115); Magnesium 1.2 mg/dL (1.7-2.3); Osmolality Calculated 296 mOsm/kg (285-295); Phosphorus 2.8 mg/dL (2.5-4.5); Potassium 4.5 mmol/L (3.5-5.1); Sodium 139 mmol/L (136-145); Total Bilirubin 0.8 mg/dL (0.15-1.2); Total Protein 4.7 g/dL (6.6-8.7)
[2022-11-10] MEDS: meropenem 1,000 MG in sodium chloride 0.9% (plus) 50 ML 100 MG IV ×2 (03:17→15:48)
[2022-11-10] MEDS: albumin 25 G/100 ML BAG 60 G IV ×3 (03:17→19:38)
[2022-11-10 03:18] LABS: Lactic Sepsis W/Reflex 3.2 mmol/L (0.5-2.2)
[2022-11-10 03:27] LABS: Slide Review Slide Review Perform
[2022-11-10 03:44] LABS: ABG PCO2 26.9 mmHg (35-45); ABG PH Result 7.32 (7.35-7.45); Arterial Blood Gas Hematocrit 41.8 % (42-52); Base Excess ABG -10.5 mmol/L (-2.0-2.0); Blood Gas Allen Test Pos; Blood Gas Sample Site Radial, right; Blood Gas Sample Type Arterial; Oxygen Device NC; PO2 ABG 86.9 mmHg (80.0-100.0)
[2022-11-10 04:32] LABS: Reflex Lactate Order REFLEX LACTIC ORDERD
[2022-11-10 04:34] LABS: Procalcitonin > 100.00 ng/mL (0-0.5)
[2022-11-10] MEDS: sodium chloride 0.9% 1,000 ML 150 ML IV (05:09)
--- NOTE | 2022-11-10 07:00 | XRR_ITS ---
PROCEDURE INFORMATION: Exam: XR Chest Exam date and time: 11/10/2022 5:37 AM Age: 72 years old Clinical indication: Shortness of breath; Additional info: SOB TECHNIQUE: Imaging protocol: Radiologic exam of the chest. Views: 1 view. COMPARISON: CR (CHEST, ) 11/09/2022 7:37 PM FINDINGS: Tubes, catheters and devices: Right upper extremity PICC line catheter is seen with tip overlying the right atrium. Lungs: There are further mildly decreased lung volumes with mild accentuation of the pulmonary vascularity. Increased mild left basilar atelectasis/interstitial opacities. Pleural spaces: There are no pleural effusions or pneumothorax. Heart/Mediastinum: The heart size is normal. There is a mildly tortuous thoracic aorta. The trachea is in the midline. Bones/joints: No acute abnormalities. XR/XR chest 1V portable [id number] IMPRESSION: Further mildly decreased lung volumes with mild accentuation of the pulmonary vascularity. Increased mild left basilar atelectasis/interstitial opacities.
[2022-11-10 07:29] LABS: Lactate (Lactic Acid level) 4.2 mmol/L (0.5-2.2)
--- NOTE | 2022-11-10 08:05 | US_ITS ---
WS: [id number] ULTRASOUND RENAL TECHNIQUE: Ultrasound examination of both kidneys. CLINICAL INFORMATION: anu COMPARISON: None. FINDINGS: RIGHT: Simple RIGHT renal cyst mid kidney measuring 1.3 x 1.6 x 1.6 cm Right kidney is normal in size and appearance. Echogenicity: Normal. Cortical thickness: 1.7 cm; Normal. Hydronephrosis: None. Perinephric fluid: None. Right kidney measures: 12.1 cm x 6.6 cm x 5.5 cm. LEFT: Simple cyst measuring 4.4 x 4.5 x 5.6 cm in the LEFT mid kidney. Left kidney is normal in size and appearance. Echogenicity: Normal. Cortical thickness: 1.0 cm; Normal. Hydronephrosis: None. Perinephric fluid: Trace free fluid inferior LEFT kidney Left kidney measures: 12.5 cm x 5.8 cm x 6.7 cm. Aorta not seen due to bowel gas. Merlos catheter. US/US renal BI* [id number] IMPRESSION: 1. No hydronephrosis in either kidney. 2. Bilateral simple cysts as described above largest in the LEFT measuring 4.4 x 4.5 x 5.6 cm in the LEFT mid kidney 3. Merlos catheter.
--- NOTE | 2022-11-10 08:56 | CT_ITS ---
WS: [id number] CT NECK TECHNIQUE: Noncontrast CT of the neck with coronal and sagittal reformatted images. CLINICAL INFORMATION: sob COMPARISON: None. DLP: 339.[address] scans at [facility] use at least one of these dose optimization techniques: automated e xposure control; mA and/or kV adjustment per patient size (includes targeted exams where dose is matc hed to clinical indication); or iterative reconstruction. FINDINGS: Exam limited due to inability to give contrast due to renal function Diffuse subcutaneous and deep soft tissue edema and induration involving the LEFT neck. Fluid in the posterior cervical space extends from the skull base to the upper back. No drainable fluid collection s. A few reactive lymph nodes. Findings suspicious for superficial and deep soft tissue infection wit h cellulitis. Soft tissue edema and induration extends into the LEFT upper chest and LEFT axilla. Minimal induratio n extending to the thoracic inlet. No mediastinal abscess. Lung apices are well aerated. Bibasilar atelectasis. Straightening of the normal cervical lordosis. M oderate spondylitic changes cervical spine. Disc osteophyte complexes worse at C5-C6 and C6-C7 with m oderate central canal stenosis worse at C5-C6 with indentation on the RIGHT ventral cervical cord. Ad vanced LEFT facet arthropathy C3-C4. Multilevel bony foraminal narrowing worse at LEFT C3-C4, bilater al C5-C6 and severe LEFT C6-C7. Prominent pannus C1-C2 articulation. Trace prevertebral fluid. No prevertebral or retropharyngeal abscess Mild mucosal thickening in the ethmoid air cells. Mucosal thickening RIGHT greater than LEFT frontal ethmoidal recesses. Normal sphenoid sinuses. Mastoid air cells well aerated. Dental artifact degrades images at the tongue base. Normal parapharyngeal fat. Submandibular glands are normal. Normal paroti d glands. Posterior nasopharynx is patent. No evidence of supraglottic or glottic mass. Subglottic ai rway is patent. Mild ballooning of the RIGHT laryngeal ventricle can be seen with RIGHT vocal cord pa ralysis. Recommend direct visualization. Noncontrast thyroid gland appears grossly normal. Carotid bulb calcification. RIGHT central venous ca theter with tip in the RIGHT atrium. CT/CT neck wo con [id number] IMPRESSION: 1. Diffuse soft tissue edema extending from the LEFT posterior paravertebral c ervical space at the skull base to the upper chest and upper back with fluid an d soft tissue induration. Correlation for infection with cellulitis. Recommend MRI cervical spine without and with gadolinium enhancement to exclude cervical spine or LEFT facet involvement 2. No drainable fluid collections on this noncontrast study. 3. Reactive LEFT cervical lymph nodes. 4. Moderate to severe central canal stenosis due to disc osteophyte complexes at C5-C6 and C6-C7. Multilevel moderate to severe bony foraminal narrowing. Rec ommend follow-up cervical spine MRI. 5. No evidence of mediastinal abscess. 6. Mild ballooning of the RIGHT laryngeal ventricle can be seen with RIGHT voc al cord paralysis. Recommend direct visualization. Notified Fernando Valdez MD at 11/10/2022 11:35 AM.
--- NOTE | 2022-11-10 08:56 | CT_ITS ---
WS: [id number] NONCONTRAST CT LEFT SHOULDER TECHNIQUE: Noncontrast CT LEFT shoulder with coronal and sagittal reformatted images. CLINICAL INFORMATION: pain COMPARISON: None. DLP: 501.[address] scans at [facility] use at least one of these dose optimization techniques: automated e xposure control; mA and/or kV adjustment per patient size (includes targeted exams where dose is matc hed to clinical indication); or iterative reconstruction. FINDINGS: Moderate degenerative arthritis AC joint. Mild downsloping acromion. Mild narrowing of the subacromia l space. Rotator cuff appears grossly intact on this noncontrast study. Moderate degenerative narrowi ng at the glenohumeral joint. No evidence of fracture dislocation. Tiny LEFT pleural effusion. Bibasi lar atelectasis. Hypertrophic spurring along the medial humeral neck. Diffuse soft tissue edema involving the LEFT neck supra and infraclavicular soft tissues. No signific ant joint effusion. This extends into the LEFT upper back. Reactive cervical lymph nodes. This is son cribed on the concurrent neck CT. CT/CT shoulder LT wo con* [id number] IMPRESSION: 1. No visualized significant shoulder joint effusion or bony erosion. 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 2. Mild narrowing of the subacromial space. Rotator cuff appears grossly intac t. 3. Cellulitis in the LEFT neck extending to the supra and infraclavicular soft tissues with slight induration extending into the thoracic inlet and LEFT uppe r mediastinum. This is also described on the neck CT. 4. LEFT basilar atelectasis
--- NOTE | 2022-11-10 09:06 | USCV_ITS ---
Uvaldo Barragan Age: 72 Gender: M : 1950 Exam Date: 11/10/2022 09:17 Ordering Phys: Fernando Valdez MD Technologist: LESLEY [place] [facility] [place] EVAL FOR THROMBUS HISTORY: Upper extremity swelling. Upper extremity pain. PROCEDURES: Venous duplex imaging was performed in bilateral upper extremities. The following venous structures were evaluated: internal jugular vein, subclavian vein, axillary vein, and brachial veins. In addition, the basilic vein, cephalic vein, radial vein, and ulnar vein. Serial compression, augmentation maneuvers, and spectral Doppler flow evaluation were performed. FINDINGS: The veins of the right upper extremity are readily compressible with normal venous flow dynamics including spontaneous flow, respiratory phasic variation and augmentation. No evidence of deep vein thrombosis or superficial thrombophlebitis in the right upper extremity. The veins of the left upper extremity are readily compressible with normal venous flow dynamics including spontaneous flow, respiratory phasic variation and augmentation. No evidence of deep vein thrombosis or superficial thrombophlebitis in the left upper extremity. Limited due to bandages on arms CONCLUSIONS No evidence of thrombus of the right upper extremity veins. No evidence of thrombus of the left upper extremity veins. Internal jugular veins are patent. Subcutaneous edema Left lower neck and subclavian region Exam of some areas limited due to bandages Marlo Graham MD (Electronically Signed) Final Date: 10 November 2022 10:07 S
--- NOTE | 2022-11-10 11:25 | ECG_ITS ---
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 Measurements Intervals [place] Rate: 102 P: 40 FL: 152 QRS: 16 QRSD: 95 T: 30 QT: 359 QTc: 468 Interpretive Statements SINUS TACHYCARDIA ST ELEVATION, CONSIDER LATERAL INJURY [MARKED ST ELEVATION W/O NORMALLY INFLECTED T-WAVE IN I/aVL/V5/V6] ST ELEVATION, CONSIDER INFERIOR INJURY [MARKED ST ELEVATION W/O NORMALLY INFLECTED T-WAVE IN II/aVF] Compared to ECG 11/09/2022 23:12:38 ST (T wave) deviation now present Myocardial infarct finding now present T-wave abnormality no longer present Electronically Signed On 11-11-2022 2:56:31 CDT by Davy Sequeira M.D. [id number]
[2022-11-10 11:43] LABS: Lactate (Lactic Acid level) 4.1 mmol/L (0.5-2.2)
[2022-11-10 12:14] LABS: Amphetamines Screen Urine Negative (Negative); Barbiturates Screen Urine Negative (Negative); Benzodiazepines Screen Urine Positive (Negative); Cocaine Screen Urine Negative (Negative); Opiate Screen Urine Negative (Negative); PCP Screen Urine Negative (Negative); THC Screen Urine Negative (Negative)
[2022-11-10] MEDS: doxycycline 100 MG in sodium chloride 0.9% (plus) 100 ML IV ×2 (12:24→23:45)
[2022-11-10] MEDS: sodium chloride 0.9% 1,000 ML 75 ML IV (12:25)
--- NOTE | 2022-11-10 12:27 | PC.NURSE ---
bedside swallow test went well. No s/s of aspiration. no choking, or coughing, or clearing of throat. Regular liquids given by this nurse. Clear liquid diet started per Dr. Valdez
[2022-11-10 12:34] LABS: Erythrocyte Sedimentation Rate 2 mm/hr (0-10)
[2022-11-10 12:50] LABS: Troponin(5th) Baseline 874 ng/L (0-15)
[2022-11-10] MEDS: aspirin 81 mg EC Tablet PO (13:13)
--- NOTE | 2022-11-10 13:20 | MR_ITS ---
WS: [id number] MRI neck, soft tissue, noncontrast. HISTORY: Soft tissue edema. Evaluate for etiology. Attempted imaging of the neck soft tissues is performed. Patient was unable to remain still for this examination. There is significant motion artifact. There is extensive edema in the soft tissues of the LEFT neck beginning at the skull base and extendi ng along the cervical chain and interspersed between the muscle bundles. The soft tissue edema extend s into the upper posterior back and around the LEFT shoulder soft tissue structures. Other than that the detail is extremely limited by the motion. MR/[place] [id number] IMPRESSION: 1. Extensive soft tissue edema along the LEFT cervical chain as described above . No focal collection. Study is extremely limited as study was terminated due t o motion artifact. 2. Consider cellulitis and rhabdomyolysis.
--- NOTE | 2022-11-10 13:20 | MR_ITS ---
WS: [id number] MRI CERVICAL SPINE NONCONTRAST HISTORY: epidural abscess COMPARISON: None available. Technique: Multiplanar, multisequence noncontrast imaging of the cervical spine. This MRI was performed without IV contrast due to renal function. This study is also significantly li mited by patient motion artifact. On the T2 and STIR sequences no significant marrow edema is identified. No cord compression. There is mild central stenosis at C3-4 due to disc and osteophyte disease. Additional narrowing of the cervic al cord at C5-6 and C6-7. No inferior displacement of cerebellar tonsils. The axial images are signif icantly limited by motion. There is no significant mass effect or epidural collection identified on t his unenhanced exam. There is extensive soft tissue edema noted surrounding the neck beginning at the skull base and exten ding inferior along the posterior back to the upper thoracic spine. There is soft tissue edema inters persed between the muscles. Greater on the LEFT but also extending minimally to the RIGHT of midline. These collections are diffuse with muscle edema also. No definite facet joint arthritis. MR/MR cervical spin wo con* [id number] IMPRESSION: 1. This study is degraded by motion artifact. 2. No epidural fluid collections identified. Study compromised without IV cont rast. IV contrast not possible due to elevated renal function studies. 3. Extensive soft tissue edema beginning at the skull base and extending predo minantly along the LEFT neck into the posterior upper thorax. No focal collecti on. There is a small amount of edema noted along the RIGHT cervical chain also. Consider cellulitis. Rhabdomyolysis should also be considered in the correct c linical setting. Correlate with any possible history of recent surgery or attem pted IV access. 4. C5-6 central stenosis due to disc and osteophyte disease. Limited evaluatio n and best seen on the sagittal sequence.
[2022-11-10] MEDS: heparin 5,000 unit/mL INJ 1 mL IV (13:28)
[2022-11-10] MEDS: heparin drip 25,000 UNIT/500 ML PREMIX 27 UNIT IV (13:31)
[2022-11-10] MEDS: LORazepam 2 mg/mL INJ 1 mL 1 MG IVP (13:43)
--- NOTE | 2022-11-10 13:50 | ECG_ITS ---
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 Measurements Intervals [place] Rate: 103 P: 37 GA: 148 QRS: 1 QRSD: 90 T: 13 QT: 354 QTc: 466 Interpretive Statements SINUS TACHYCARDIA POSSIBLE RIGHT VENTRICULAR CONDUCTION DELAY [RSR (QR) IN V1/V2] NONSPECIFIC ST & T-WAVE ABNORMALITY ABNORMAL RHYTHM ECG Compared to ECG 11/10/2022 11:33:50 T-wave abnormality now present ST (T wave) deviation no longer present Myocardial infarct finding no longer present Electronically Signed On 11-10-2022 16:52:17 CDT by Trisha Vences M.D. [id number]
[2022-11-10 14:55] LABS: Lactate (Lactic Acid level) 4.4 mmol/L (0.5-2.2); Troponin 5 2HR 1454 ng/L (0-15); Troponin 5 2HR Delta 580 ABS# (0-10)
[2022-11-10 15:15] LABS: Anion Gap 23.9 (5-19); Blood Urea Nitrogen 41 mg/dL (8-23); Calcium 6.7 mg/dL (8.5-10.5); Carbon Dioxide 13 mmol/L (22-29); Chloride 106 mmol/L (98-107); Glucose 132 mg/dL (65-115); Magnesium 1.6 mg/dL (1.7-2.3); Osmolality Calculated 300 mOsm/kg (285-295); Potassium 3.9 mmol/L (3.5-5.1); Sodium 139 mmol/L (136-145)
[2022-11-10 15:36] LABS: HIV 1 & 2 Antigen Non-Reactive (Non-Reactiv)
[2022-11-10 15:37] LABS: HIV 1 & 2 Antibody Non-Reactive (Non-Reactiv)
[2022-11-10] MEDS: LORazepam 2 mg/mL INJ 1 mL 0.5 MG IVP ×2 (15:40→15:41)
[2022-11-10] MEDS: clindamycin 600 MG/50 ML PREMIX 100 MG IV (15:51)
[2022-11-10 16:30] LABS: Hepatitis A Antibody IgM Non-Reactive (Nonreactive); Hepatitis B Core IgM Non-Reactive (Nonreactive); Hepatitis B Surface Antigen Non-Reactive (Nonreactive); Hepatitis C Virus Antibody Non-Reactive (Nonreactive)
[2022-11-10 16:31] LABS: Creatine Phosphokinase 1213 U/L (39-308)
--- NOTE | 2022-11-10 17:03 | P.CONIM_ITS ---
Providers/Reason For Consult Consulting Physician/Specialty*: Davy Sequeira MD/ Cardiology Reason for Consult*: NSTEMI Requesting Physician: Dr Valdez Attending Physician: Fernando Valdez MD History of Present Illness History of Present Illness Uvaldo Barragan is a 72 year old male with no prior significant cardiac history presented to hospital with weakness, confusion, nausea, vomitting and hypotension. Patient had a lactic acid of 8. Also has been febrile and meets sepsis criteria. Cardiology was consulted as today tele showed dynamic EKG changes. Not meeting STEMI criteria. Patient denies chest pain but has some left shoulder pain. Erythema was noted on this area and primary team is working it up. His troponin checked after EKG changes was over 800 that was over 1400 at 2 hours. Patient is currently confused but denies chest pain. Echo done today showes borderline low cardiac function. Review of Systems Narrative: Can not obtain because of mentation status. Medications/Allergies Home Medications Medication Instructions Recorded Confirmed Last Taken Type acetaminophen 325 mg capsule 650 mg PO QID PRN Pain 11/09/22 11/09/22 11/08/22 History (Tylenol) finasteride 5 mg tablet 5 mg PO QPM 11/09/22 11/09/22 Unknown History hydrochlorothiazide 50 mg tablet 25 mg PO BID 11/09/22 11/09/22 Unknown History naproxen sodium 220 mg capsule 220 mg PO Q8H PRN Pain 11/09/22 11/09/22 11/08/22 History (Aleve) nortriptyline 10 mg capsule 30 mg PO DAILY 11/09/22 11/09/22 Unknown History potassium chloride 20 mEq 20 meq PO DAILY 11/09/22 11/09/22 11/09/22 History tablet,extended release(part/cryst) Allergies Allergy/AdvReac Type Severity Reaction Status Date / Time lorazepam [From Ativan] Allergy Unknown Verified 11/10/22 19:22 Current Medications Generic Name Dose Route Start Last Admin Trade Name Freq PRN Reason Stop Dose Admin Acetaminophen 650 mg 11/09/22 19:51 11/09/22 23:05 Acetaminophen 325 Mg Tablet PO 650 mg Q6H PRN Administration Mild/Mod Pain Or Temp >/= 101 Albuterol/Ipratropium 3 ml 11/10/22 14:00 11/10/22 13:49 Ipratropium-Albuterol 3 Ml Neb INHALATION 3 ml Q6H.RESP SAPPHIRE Administration Aspirin 81 mg 11/10/22 13:00 11/10/22 13:13 Aspirin 81 Mg Ec Tablet PO 81 mg DAILY SAPPHIRE Administration Heparin Sodium (Porcine) 0 unit 11/10/22 12:52 11/10/22 13:28 Heparin 5,000 Unit/Ml Inj 1 Ml IV 4,900 unit PRN PRN Administration Heparin weight-base protocol Protocol Albumin Human 25 g in 100 mls @ 60 mls/hr 11/09/22 20:00 11/10/22 13:13 Albumin IV Infused Q8H SAPPHIRE Infusion Norepinephrine Bitartrate 4 mg 254 mls @ 0 mls/hr 11/09/22 20:00 11/10/22 12:36 / Dextrose IV 0 mcg/min .Q0M SAPPHIRE 0 mls/hr Titration Protocol Per Protocol Vancomycin/PEG/NADA/Lysine/Water 1,250 mg in 250 mls @ 250 mls/hr 11/09/22 23:00 11/10/22 02:07 Vancocin IV Infused Q36H SAPPHIRE Infusion Sodium Chloride 1,000 mls @ 75 mls/hr 11/09/22 22:50 11/10/22 12:25 Sodium Chloride 0.9% IV 75 mls/hr .[id number] SAPPHIRE Administration Meropenem 1,000 mg/ Sodium 50 mls @ 100 mls/hr 11/10/22 16:00 11/10/22 16:40 Chloride IV Infused Q12H SAPPHIRE Infusion Protocol Doxycycline Hyclate 100 mg/ 100 mls @ 100 mls/hr 11/10/22 11:45 11/10/22 13:28 Sodium Chloride IV Infused Q12H SAPPHIRE Infusion Protocol Heparin Sodium/Sodium Chloride 25,000 unit in 500 mls @ 0 mls/hr 11/10/22 13:00 11/10/22 13:31 Heparin Drip IV 15.34 unit/kg/hr .Q0M SAPPHIRE 27 mls/hr Administration Protocol Per Protocol Clindamycin HCl/Dextrose 600 mg in 50 mls @ 100 mls/hr 11/10/22 14:00 11/10/22 16:40 Cleocin IV Infused Q8H SAPPHIRE Infusion Protocol Pantoprazole Sodium 40 mg 11/09/22 19:51 11/09/22 21:22 Pantoprazole 40 Mg Sdv IVP 40 mg Q24H SAPPHIRE Administration PFSH Acute PFSH: Medical History BPH (benign prostatic hyperplasia) Hypertension Surgical History No pertinent past surgical history Family History Father CAD (coronary artery disease) Cancer Pancreatic cancer Mother Alzheimer's dementia Social History Smoking and tobacco status: never smoked Alcohol intake: never Substance/Drug Use: never Vitals/I&O/Wt Last Vital Signs Temp 98.5 F 11/10/22 04:20 Pulse 113 H 11/10/22 16:50 Resp 27 H 11/10/22 16:50 BP 116/70 11/10/22 16:50 Pulse Ox 94 11/10/22 16:50 O2 Del Method Nasal Cannula 11/10/22 13:51 O2 Flow Rate 5 11/10/22 13:51 11/10/22 11/10/22 11/10/22 06:59 14:59 22:59 Intake Total 2277.352 / 2277.352 5871.253 / 5871.253 100 / 5971.253 Output Total 400 / 400 400 / 400 Balance 1877.352 / 2872.338 0673.253 / 5471.253 100 / 5571.253 Weight last 48 hrs Weight 217 lb Weight 194 lb Weight 180 lb Physical Exam Narrative: Altered mental status Resp: OTHER: Diminished air entry Cardio: COMMON NORMALS: regular rate, regular rhythm, S1 normal heart sound present and S2 normal heart sound present RATE: regular rate RHYTHM: regular rhythm HEART SOUNDS: S1 normal heart sound present and S2 normal heart sound present Urinary Catheter Management: Merlos: Cath Placed During This Visit: yes Reason for Continuing Indwelling Catheter: Accurate Measurement of Urinary Output in Critically Ill Patients Urinary Catheter Date of Insertion: 11/09/22 Urinary Catheter Time of Insertion: 18:54 Data 11/10/22 02:24 11/10/22 13:38 Micro: Microbiology 11/09/22 16:07 Blood Culture - Preliminary Blood NEGATIVE TO DATE 11/09/22 16:07 Blood Culture - Preliminary Blood NEGATIVE TO DATE 11/09/22 19:55 MRSA Culture - Final Nose A&P Assessment and plan (1) Troponin level elevated: (2) Acute renal failure: (3) Septic shock: (4) Lactic acidosis: (5) Acute encephalopathy: (6) Urinary tract infection: Plan Patient has sepsis with UTI. Primary team doing workup for alternative diagn osis. Patient has SOUMYA as well. EKG changes are dynamic with ST T wave changes. Troponin has trended up significanty. Likelly demand ischemia vs true NSTEMI Aspirin and heparin gtt. Nephroloyy on board echo shows only mildly reduced LV function Thank you for involving us with care of this patient . We will continue to follow with Consult Attestations Medical Necessity Statement: Care expected to cross 2 midnights. Coding Level of Care Code Acute Code for Chg Fwd Diagnoses Troponin level elevated R77.8 Acute renal failure N17.9 Septic shock A41.9; R65.21 Lactic acidosis E87.20 Acute encephalopathy G93.40 Urinary tract infection N39.0
[2022-11-10] MEDS: acetaminophen 650 mg Supp PR (17:08)
--- NOTE | 2022-11-10 17:11 | PC.SLP ---
Pt unable to participate in CYCLING INSTRUCTOR eval at this time. CYCLING INSTRUCTOR will attempt eval tomorrow.
--- NOTE | 2022-11-10 17:41 | ECG_ITS ---
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 Measurements Intervals [place] Rate: 115 P: 50 NV: 148 QRS: 29 QRSD: 93 T: 40 QT: 269 QTc: 372 Interpretive Statements SINUS TACHYCARDIA ST ELEVATION, CONSIDER INFERIOR INJURY Compared to ECG 11/10/2022 13:50:22 ST (T wave) deviation now present Myocardial infarct finding now present T-wave abnormality no longer present Electronically Signed On 11-11-2022 6:23:33 CDT by Trisha Vences M.D. [id number]
[2022-11-10 17:42] LABS: ABG PCO2 23.5 mmHg (35-45); ABG PH Result 7.41 (7.35-7.45); Alveolar-Arterial Oxygen Gradi 12.4 mmHg (5-10); Arterial Blood Gas Hematocrit 41.5 % (42-52); Base Excess ABG -8.1 mmol/L (-2.0-2.0); Blood Gas Allen Test Pos; Blood Gas Operator Identificat MONRO; Blood Gas Sample Site Radial, right; Blood Gas Sample Type Arterial; HCO3 ABG 14.7 mmol/L (22-26); HGB O2 Sat 94.6 % (95-100); Ionized Calcium Level - ABG 0.9 mmol/L (1.1-1.4); Methemoglobin 0.9 % (0.4-1.5); Oxygen Device NC; Oxygen Saturation ABG 96.4; PO2 ABG 72.5 mmHg (80.0-100.0); Potassium Level - ABG 3.6 mmol/L (3.5-5.0); Total Hemoglobin 13.6 g/dL (14-18)
--- NOTE | 2022-11-10 18:00 | ECG_ITS ---
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 Measurements Intervals [place] Rate: 113 P: 38 RI: 148 QRS: 14 QRSD: 91 T: 35 QT: 264 QTc: 363 Interpretive Statements SINUS TACHYCARDIA NONSPECIFIC ST & T-WAVE ABNORMALITY Compared to ECG 11/10/2022 17:41:07 T-wave abnormality now present ST (T wave) deviation no longer present Myocardial infarct finding no longer present Electronically Signed On 11-11-2022 2:55:30 CDT by Davy Sequeira M.D. [id number]
--- NOTE | 2022-11-10 18:01 | USCV_ITS ---
Uvaldo Barragan Age: 72 Gender: M : 1950 Exam Date: 11/10/2022 07:09 Ordering Phys: Fernando Valdez MD Technologist: Sagrario Valentin Exam Location: [facility] [place] Indication: New AO valve BP: 96 / 61 HR: 97 Rhythm: Sinus Technical Quality: Adequate MEASUREMENTS (Male / Female) Normal Values 2D ECHO LVOT Diameter 2.1 cm LV Ejection Fraction MOD 2C 64.4 % LV Ejection Fraction 2C AL 65.1 % LA Diameter 4.0 cm IVC Diameter 2.4 cm M-MODE Aortic Annulus Diameter 4.3 cm LA Ao Ratio MM 1.0 MV E Point Septal Separation 1.5 cm DOPPLER AV Peak Velocity 124.0 cm/s LVOT Peak Velocity 83.0 cm/s AV Area Cont Eq vti 3.2 cm squared AV Area Cont Eq pk 2.4 cm squared MV Area PHT 5.0 cm squared Mitral E to A Ratio 0.7 MV E' Velocity 37.0 cm/s Mitral E to MV E' Ratio 10.2 Mitral E to LV E' Lateral Ratio 8.4 Mitral E to LV E' Septal Ratio 13.2 TR Peak Velocity 173.5 cm/s TR Peak Gradient 12.0 mmHg TV Peak E Velocity 93.0 cm/s Right Atrial Pressure 3.0 mmHg Pulmonary Artery Systolic Pressu 15.0 mmHg RV Acceleration Time 0.1 s FINDINGS Left Ventricle Left ventricle is normal in size. LV systolic function is borderline low with EF of 45 to 50%. Borderline global hypokinesis seen. Right Ventricle Normal in size and function Right Atrium Normal in size Left Atrium Normal in size Mitral Valve Mild mitral annular calcification seen. Aortic Valve Grossly normal. No significant stenosis or regurgitation seen. Tricuspid Valve Trace tricuspid regurgitation. Insufficient TR jet to evaluate RVSP Pulmonic Valve Not well-visualized Pericardium Normal Aorta Dilated IVC Not well visualized CONCLUSIONS LV systolic function is borderline low with EF of 45 to 50%. Trace tricuspid regurgitation Aorta is dilated No comparison studies are available Davy Sequeira MD (Electronically Signed) Final Date: 10 November 2022 20:29 S
[2022-11-10 18:03] LABS: Glucose Point of Care 91 mg/dL (70-110)
--- NOTE | 2022-11-10 18:29 | P.PN_ITS ---
Subjective Subjective: - Patient was examined multiple times throughout the day up into the evening time, with multiple family meetings -Patient was examined early in the morning, he is alert oriented x3, following all commands he is on 8 of Levophed he is on a bicarb drip, febrile overnight, maps around 65, tachycardic, denies any chest pain, no shortness of breath, no abdominal pain, he is primary complaint is is that he continues to have left shoulder pain but now the left shoulder pain is extending up into his left neck -Family members at bedside are very concerned as he has a area of swelling, erythema, warmth, starting from the left shoulder extending to the left neck, around to the left back the area is marked -He had no significant neck stiffness, no headache, blurry vision, no back pain complaints, Kernig sign negative, Brudzinski sign negative -Patient had a bedside soft tissue ultrasound that was performed that showed a lot of soft tissue swelling, extending into the posterior neck -I also had ultrasound do a ultrasound of the jugular vein to make sure that there was no jugular vein thrombosis or thrombophlebitis which was relatively unremarkable -Does consider due to concerns for persistent sepsis, as he remained on Levophed, he looked ill and appearing, I went ahead and performed a stat CT scan of his neck, and of his shoulder -Initial thought it could be septic arthritis although CT scan was unremarkable -The other thought was could he have a deep tissue neck infection, possible me diastinitis, or epidural abscess, or discitis or retropharyngeal parapharyngeal abscess -I went over CAT scans with radiology, he does have extensive soft tissue swelling, in the area of the neck, in the area of the shoulder, -I spoke to Dr. Mao, and I went over the scans with Dr. Mao, he recommended MRI to rule out discitis, and vertebral osteomyelitis, or epidural abscess -MRI performed, no significant evidence of discitis, vertebral osteomyelitis, epidural abscess, spoke to Dr. Mao about this -I also spoke to Dr. Maria, ENT, as there was concerns of retropharyngeal abscess parapharyngeal abscess, he went over the scans, there is no significant evidence of this, -I also went over scans with Dr. Rees, the case over Dr. Dr. Rees, no significant radiographic evidence of mediastinitis, but advised to continue to monitor -Certainly his MRI showed extensive soft tissue edema, likely cellulitis, the source is unclear, no significant trauma reported, but he is on broad-spectrum antibiotic therapy, I have added on clindamycin in addition to his antibiotic therapy -Family did state that there was tick bites he is not sure if he had a tick bite at that location I will add doxycycline -Patient was reexamined in the afternoon, he had some nonspecific ST-T wave changes on his telemetry monitoring, he had no chest pain complaints, EKG and telemetry series and troponin series were ordered -His first troponin was 840's, although he had no chest pain complaints, no shortness of breath complaints, I have placed him on a heparin drip, aspirin, statin, cardiology was consulted, echocardiogram ordered -Patient was taken to MRI for scans as above -As patient's troponin series continue to trend upwards, went over scans with Dr. Leon cardiology, there is diffuse hypokinesia, I was told that the echocardiogram EF is borderline low normal, but no significant wall motion abnormalities -Patient was reexamined he had received 1.5 mg of Ativan for his MRI he is a bit encephalopathic he does awaken, but falls back asleep he is starts mumbling a couple of words but falls back asleep, his at bedside tells me that he takes Valium at home and this typically happens when he takes benzos -He is currently off Levophed, he is off the bicarb drip, he is normotensive, he still tachycardic, he is tachypneic, but he is on 5 L, he has crackles on exam he is positive fluid, his urine output is 800 cc and wondering if it is just fluid overload I am holding off on Lasix, nephrology has been consulted await their recommendations, -I did repeat his ABG, no significant acidosis on the ABG no significant hypoxia or hypercarbia his bicarb is low but will monitor -He does have persistent lactic acidosis, will need to monitor this -I had extensive discussion with patient's family, that I still think that the source of his sepsis is from a UTI and pyelonephritis, possibly prostatitis, alt stephany the CT scan no had evidence of prostatic abscess, his blood cultures are negative, his sepsis is improving he is off Levophed he is off bicarb, he is normotensive, will continue broad-spectrum antibiotic therapy have added on additional antibiotics for atypical coverage, he does have it looks like cellulitis of the left neck we will continue to monitor -In terms of his renal failure creatinine is improving urine output is improving -He is developing some transaminitis we will need to monitor -He is a bit encephalopathic this evening it could be the sepsis, it could be some hypoxia could be that event we will monitor -He is troponins are going up, I think he likely has some underlying CAD, that with the sepsis has worsened, we will have to monitor his troponin he is on aspirin, statin on a heparin drip -He might need an angiogram at some point, but there is no acute ST-T wave changes currently on EKG she has nonspecific ST-T wave changes, I went over this with Dr. Sequeira multiple times, he also performed a bedside echocardiogram, repeat, -I had an extensive discussion with family, that we will continue to give him time, we might consider doing a DOMINIQUE if his blood culture show positive, although he has no history of IV drug use -The only other thing I could think of his meningitis, as a possibility although he had no complaints of headache, blurry vision no white blood cell count no neck pain no neck stiffness on admission he did have complaints of left shoulder pain, I although I think this is unlikely we will consider performing a lumbar puncture tomorrow if he remains septic, persistently has lactic acidosis or if his mentation continues to deteriorate -I advised family that what can change in the next 24 hours is his respiratory status he might aspirate, so I am going to keep him n.p.o., he might be intubated depending on his mental status and depending on respiratory status but I will repeat the ABG, and monitor him closely -With his elevated troponins he might have a cardiac event or arrhythmia, will need to monitor this closely right now are medically managing him, pursuing coronary angiography would carry significant risk including acute renal failure and dialysis given the diet that we can give to him with his sepsis, I think it does definitely need to be done at some point I think right now would carry significant risks compared to benefits, and he has not had any chest pain complaints -In the evening he was encephalopathic, pupils equal round reactive to light, no significant neck stiffness, Kernig sign negative Brudzinski signs negative, he is afebrile, he is normotensive he is tachycardic, he is on 5 L saturating in the high 90s, he is encephalopathic, Vitals/I&O/Wt Last Vital Signs Temp 98.5 F 11/10/22 04:20 Pulse 113 H 11/10/22 16:50 Resp 27 H 11/10/22 16:50 BP 116/70 11/10/22 16:50 Pulse Ox 94 11/10/22 16:50 O2 Del Method Nasal Cannula 11/10/22 13:51 O2 Flow Rate 5 11/10/22 13:51 11/10/22 11/10/22 11/10/22 06:59 14:59 22:59 Intake Total 2277.352 / 2277.352 5871.253 / 5871.253 152 / 6023.253 Output Total 400 / 400 400 / 400 Balance 1877.352 / 9588.404 5317.253 / 5471.253 152 / 5623.253 Weight last 48 hrs Weight 98.43 kg Weight 87.997 kg Weight 81.647 kg Physical Exam Const: EXAM LIMITATIONS: altered mental status GENERAL APPEARANCE: cooperative and ill appearing ORIENTATION/CONSCIOUSNESS: Yes awake, Yes oriented to person and Yes confused; not oriented to place and not oriented to time Eye: COMMON NORMALS: Equal, round and reactive pupils present and EOMs intact bilaterally PUPIL: Yes Equal, round and reactive pupils present Neck/C-Spine: COMMON NORMALS: full ROM, no lymphadenopathy and no meningeal signs OTHER: Left neck, erythema, swelling, extending from left shoulder, up to the left neck, up to the left posterior cervical spine erythema, warmth Lymph: LYMPHATIC: no lymphadenopathy noted Resp: COMMON NORMALS: normal respiratory effort, No retractions, No use of accessory muscles and clear to auscultation bilaterally AUSCULTATION: clear to auscultation bilaterally Cardio: COMMON NORMALS: regular rate, regular rhythm, S1 normal heart sound present and S2 normal heart sound present RATE: regular rate RHYTHM: regu lar rhythm HEART SOUNDS: S1 normal heart sound present and S2 normal heart sound present GI: COMMON NORMALS: Normal to inspection, nondistended, normoactive bowel sounds present and non-tender Extremity: COMMON NORMALS: no pedal edema Neuro: SENSORIUM/ORIENTATION: Yes oriented to person, No oriented to place and No oriented to time MENINGEAL SIGNS: Yes no meningeal signs Psych: COMMON NORMALS: mental status grossly normal Urinary Catheter Management: Merlos: Cath Placed During This Visit: yes Reason for Continuing Indwelling Catheter: Accurate Measurement of Urinary Output in Critically Ill Patients Urinary Catheter Date of Insertion: 11/09/22 Urinary Catheter Time of Insertion: 18:54 Sepsis: Is patient septic: Yes Focused sepsis exam performed: Yes Focused sepsis exam: Has bilateral lower extremity, DP PT pulses diminished, capillary refill greater than 2 seconds, bluish hue to bilateral lower extremities Data 11/10/22 02:24 11/10/22 13:38 Micro: Microbiology 11/09/22 16:07 Blood Culture - Preliminary Blood NEGATIVE TO DATE 11/09/22 16:07 Blood Culture - Preliminary Blood NEGATIVE TO DATE 11/09/22 19:55 MRSA Culture - Final Nose A&P Assessment and plan (1) Acute pyelonephritis: (2) Urinary tract infection: (3) Acute encephalopathy: (4) Lactic acidosis: (5) Metabolic acidosis: (6) Septic shock: (7) Acute renal failure: (8) Hypokalemia: (9) NSTEMI (non-ST elevated myocardial infarction): (10) Gallbladder sludge: (11) Left renal stone: (12) Enlarged prostate: (13) Acute respiratory failure with hypoxia: (14) Aspiration pneumonia: (15) Aspiration pneumonitis: (16) Goals of care, counseling/discussion: (17) Urinary retention: (18) Sepsis: (19) Rhabdomyolysis: (20) Cellulitis: (21) Acute prostatitis: Plan Acute hypoxic respiratory failure -Potentially secondary to aspiration pneumonia, aspiration pneumonitis Plan -We will monitor respiratory status closely -Low threshold for intubation -Respiratory therapy evalLeroyoNeb treatments -On broad-spectrum antibiotic therapy -Sputum cultures, blood cultures Urinary tract infection, with acute pyelonephritis, with acute prostatitis concerns -With underlying enlarged prostate, with concerns for urinary retention, concerns for acute prostatitis although CT scan did not show radiographic evidence of prostate enlargement -Follow urine cultures, blood cultures -Follow UA -Follow blood cultures -Follow urine cultures -Continue vancomycin, Merrem [place] Am -Monitor creatinine, monitor urine output -Spoke to Dr. Pulido urology, given his left hydronephrosis and lactic acidosis, his septic shock, and I want to make sure that he does not have any stentable pathology, no underlying abscess, or obstructive uropathy. Although I spoke to [facility], who advised me that there was no hydronephrosis, but did have a left kidney stone, repeat renal ultrasound does not show any significant obstructive uropathy Left neck swelling, cellulitis -We will monitor clinically -Has had extensive work-up as above -Continue vancomycin, meropenem, added clindamycin Septic shock -Likely multifactorial from UTI, pyelonephritis, prostatitis, respiratory failure, aspiration pneumonia -Currently off Levophed -Currently on fluid therapy -Stress dose steroids -Albumin therapy -Antibiotics as above -PICC line placed, maintain MAP greater than 65 Levophed if needed NSTEMI -Aspirin, statin, heparin -Serial EKGs, serial troponins, telemetry monitoring -Likely secondary to septic shock, sepsis, acute pyelonephritis -However there is concern for underlying CAD -Cardiology consulted -We will monitor -Continue to monitor telemetry, troponins Acute renal failure, improving --Likely sec to urinary tension, dehydration, sepsis -Monitor urine output, monitor lactic acids, monitor creatinine Acute encephalopathy, likely secondary to sepsis, UTI, aspiration pneumonia, sepsis shock Metabolic acidosis, off bicarb drip, improving Hypoalbuminemia, albumin therapy Hypokalemia, resolving Lactic acidosis, secondary to septic shock, secondary to UTI, aspiration pneumonia, prostatitis, cellulitis as above trend lactic acids Left kidney stone Moderate to severely enlarged prostate, will monitor, might require a prostatic ultrasound to evaluate for prostatic abscess based on clinical progress Acute encephalopathy likely due to sepsis, Ativan, hypoxia, monitor, if his mentation does not improve we will consider lumbar puncture Goals of care discussion, spoke to patient's , he is a full code however he does have paperwork filled out for his living well, he does not want life- sustaining measures if there is no likelihood of meaningful recovery Heparin drip for DVT prophylaxis Full code Spoke to patient, spoke to , spoke to radiologist at [facility], spoke to urology, spoke to cardiology, spoke to patient's family, spoke to cardiothoracic surgery, spoke to Dr. Mao, spoke to Dr. Maria Patient's status is stable, prognosis is guarded Attestations Medical Necessity Statement*: Patient requires sedation due to lactic acidosis, sepsis, septic shock, cellulitis, UTI, pyelonephritis, prostatitis, NSTEMI, left neck swelling, Coding Level of Care Code Critical Care >/= 30 minutes Critical care time (in minutes): 180 The high probability of a clinically significant, sudden or life threatening deterioration, as referenced in this documentation, required my full and direct attention, intervention and personal management. The critical care time shown is in addition to time spent performing any reported separately billable procedures and includes the following: [x] Data and vital sign review and interpretation [x ] Patient assessment, examination and intervention [x] Medication orders and management [x] Patient/Family updates as able [x] Care Coordination and Documentation. Diagnoses Acute pyelonephritis N10 Urinary tract infection N39.0 Acute encephalopathy G93.40 Lactic acidosis E87.20 Metabolic acidosis E87.20 Septic shock A41.9; R65.21 Acute renal failure N17.9 Hypokalemia E87.6 NSTEMI (non-ST elevated myocardial infarction) I21.4 Gallbladder sludge K82.8 Left renal stone N20.0 Enlarged prostate N40.0 Acute respiratory failure with hypoxia J96.01 Aspiration pneumonia J69.0 Aspiration pneumonitis J69.0 Goals of care, counseling/discussion Z71.89 Urinary retention R33.9 Sepsis A41.9 Rhabdomyolysis M62.82 Cellulitis L03.90 Acute prostatitis N41.0
[2022-11-10 18:52] LABS: Troponin 5 6HR 2083 ng/L (0-15); Troponin 5 6HR Delta 1209 ng/L (0-12)
[2022-11-10] MEDS: pantoprazole 40 mg SDV IVP (19:38)
[2022-11-10 20:49] LABS: Partial Thromboplastin Time 167.1 SECONDS (23.9-36.7)
--- NOTE | 2022-11-10 20:54 | P.CONIM_ITS ---
Providers/Reason For Consult Consulting Physician/Specialty*: lex Reason for Consult*: soumya Attending Physician: Fernando Valdez MD History of Present Illness History of Present Illness patient is a 72-year-old male with past medical history of enlarged prostate, hypertension presented to the emergency department complaining of nausea generalized weakness presyncopal episodes and altered mental status. On further evaluation in the emergency department patient was noted to be hypotensive and tachypneic and altered mental status. Patient was initially on nonrebreather mask improved to O2 by 4 L nasal cannula currently. Was briefly on pressors which are currently off. Lab data significant for SOUMYA with a creatinine of 3.1, elevated lactate, UA consistent with UTI, also has bicarb of 16 on presentation. No prior labs available. CT scan abdomen has showed complex left kidney cyst as well as subcentimeter kidney stones on the left. Enlarged prostate. He currently has Merlos catheter. Review of Systems Narrative: canot obtain Medications/Allergies Home Medications Medication Instructions Recorded Confirmed Last Taken Type acetaminophen 325 mg capsule 650 mg PO QID PRN Pain 11/09/22 11/09/22 11/08/22 History (Tylenol) finasteride 5 mg tablet 5 mg PO QPM 11/09/22 11/09/22 Unknown History hydrochlorothiazide 50 mg tablet 25 mg PO BID 11/09/22 11/09/22 Unknown History naproxen sodium 220 mg capsule 220 mg PO Q8H PRN Pain 11/09/22 11/09/22 11/08/22 History (Aleve) nortriptyline 10 mg capsule 30 mg PO DAILY 11/09/22 11/09/22 Unknown History potassium chloride 20 mEq 20 meq PO DAILY 11/09/22 11/09/22 11/09/22 History tablet,extended release(part/cryst) Allergies Allergy/AdvReac Type Severity Reaction Status Date / Time lorazepam [From Ativan] Allergy Unknown Verified 11/10/22 19:22 Current Medications Generic Name Dose Route Start Last Admin Trade Name Freq PRN Reason Stop Dose Admin Acetaminophen 650 mg 11/09/22 19:51 11/09/22 23:05 Acetaminophen 325 Mg Tablet PO 650 mg Q6H PRN Administration Mild/Mod Pain Or Temp >/= 101 Acetaminophen 650 mg 11/10/22 16:41 11/10/22 17:08 Acetaminophen 650 Mg Supp PA 650 mg Q6H PRN Administration Fever Albuterol/Ipratropium 3 ml 11/10/22 14:00 11/10/22 20:15 Ipratropium-Albuterol 3 Ml Neb INHALATION 3 ml Q6H.RESP SAPPHIRE Administration Aspirin 81 mg 11/10/22 13:00 11/10/22 13:13 Aspirin 81 Mg Ec Tablet PO 81 mg DAILY SAPPHIRE Administration Heparin Sodium (Porcine) 0 unit 11/10/22 12:52 11/10/22 13:28 Heparin 5,000 Unit/Ml Inj 1 Ml IV 4,900 unit PRN PRN Administration Heparin weight-base protocol Protocol Albumin Human 25 g in 100 mls @ 60 mls/hr 11/09/22 20:00 11/10/22 19:38 Albumin IV 60 mls/hr Q8H SAPPHIRE Administration Norepinephrine Bitartrate 4 mg 254 mls @ 0 mls/hr 11/09/22 20:00 11/10/22 12:36 / Dextrose IV 0 mcg/min .Q0M SAPPHIRE 0 mls/hr Titration Protocol Per Protocol Vancomycin/PEG/NADA/Lysine/Water 1,250 mg in 250 mls @ 250 mls/hr 11/09/22 23:00 11/10/22 02:07 Vancocin IV Infused Q36H SAPPHIRE Infusion Meropenem 1,000 mg/ Sodium 50 mls @ 100 mls/hr 11/10/22 16:00 11/10/22 16:40 Chloride IV Infused Q12H SAPPHIRE Infusion Protocol Doxycycline Hyclate 100 mg/ 100 mls @ 100 mls/hr 11/10/22 11:45 11/10/22 13:28 Sodium Chloride IV Infused Q12H SAPPHIRE Infusion Protocol Heparin Sodium/Sodium Chloride 25,000 unit in 500 mls @ 0 mls/hr 11/10/22 13:00 11/10/22 13:31 Heparin Drip IV 15.34 unit/kg/hr .Q0M SAPPHIRE 27 mls/hr Administration Protocol Per Protocol Clindamycin HCl/Dextrose 600 mg in 50 mls @ 100 mls/hr 11/10/22 14:00 11/10/22 16:40 Cleocin IV Infused Q8H SAPPHIRE Infusion Protocol Pantoprazole Sodium 40 mg 11/09/22 19:51 11/10/22 19:38 Pantoprazole 40 Mg Sdv IVP 40 mg Q24H SAPPHIRE Administration PFSH Acute PFSH: Medical History (Updated 11/10/22 @ 18:59 by Fernando Valdez MD) BPH (benign prostatic hyperplasia) Hypertension Surgical History (Updated 11/09/22 @ 18:21 by Fernando Valdez MD) No pertinent past surgical history Family History (Updated 11/09/22 @ 18:22 by Fernando Valdez MD) Father CAD (coronary artery disease) Cancer Pancreatic cancer Mother Alzheimer's dementia Social History (Updated 11/09/22 @ 18:21 by Fernando Valdez MD) Smoking and tobacco status: never smoked Alcohol intake: never Substance/Drug Use: never Vitals/I&O/Wt Last Vital Signs Temp 98.5 F 11/10/22 04:20 Pulse 112 H 11/10/22 20:16 Resp 32 H 11/10/22 20:16 BP 116/70 11/10/22 16:50 Pulse Ox 98 11/10/22 20:16 O2 Del Method Nasal Cannula 11/10/22 20:16 O2 Flow Rate 2 11/10/22 20:16 11/10/22 11/10/22 11/10/22 06:59 14:59 22:59 Intake Total 2277.352 / 2277.352 5871.253 / 5871.253 152 / 6023.253 Output Total 400 / 400 400 / 400 1000 / 1400 Balance 1877.352 / 3162.945 1554.253 / 5471.253 -848 / 4623.253 Weight last 48 hrs Weight 98.43 kg Weight 87.997 kg Weight 81.647 kg Physical Exam Narrative: deferred Urinary Catheter Management: Merlos: Cath Placed During This Visit: yes Reason for Continuing Indwelling Catheter: Accurate Measurement of Urinary Outpu t in Critically Ill Patients Urinary Catheter Date of Insertion: 11/09/22 Urinary Catheter Time of Insertion: 18:54 Data 11/10/22 02:24 11/10/22 13:38 Micro: Microbiology 11/09/22 16:07 Blood Culture - Preliminary Blood NEGATIVE TO DATE 11/09/22 16:07 Blood Culture - Preliminary Blood NEGATIVE TO DATE 11/09/22 19:55 MRSA Culture - Final Nose A&P Assessment and plan (1) Acute renal failure: Plan 1. Acute kidney injury: No prior labs available to compare for baseline. Presented with a creatinine of 3.1 improved to 2.7 currently SOUMYA likely from ATN from sepsis and possible urinary retention. -Renal function has improved, has adequate urine output, continue to monitor -No indication for renal replacement therapy, will check urine electrolytes, will switch IV fluids from normal saline to IV bicarbonate drip due to severe metabolic acidosis. -Avoid nephrotoxins and IV contrast studies. 2. Septic shock: , possible pyelonephritis and aspiration pneumonia, further work-up is in progress, lumbar puncture ordered, Lyme serologies pending 3. Respiratory failure: Stable currently on 4 L nasal cannula 4 anion gap metabolic acidosis: Secondary to lactic acidosis, switched IV fluids to. Bicarbonate drip . 5. Left kidney complex cyst and subcentimeter kidney stones, outpatient urology follow-up Patient evaluated using audiovisual cart. Time spent 45 minutes Consult Attestations Medical Necessity Statement: per medicine Coding Level of Care Code Acute Code for [facility] Fwd Diagnoses Acute renal failure N17.9
[2022-11-10] MEDS: ACETAMINOPHEN 500 MG/50 ML IV (21:54)
[2022-11-10] MEDS: PIGGYBACK IV (21:54)
--- NOTE | 2022-11-10 22:46 | XRR_ITS ---
PROCEDURE INFORMATION: Exam: XR Chest Exam date and time: 11/10/2022 9:57 PM Age: 72 years old Clinical indication: Shortness of breath; Additional info: Dyspnea/cough TECHNIQUE: Imaging protocol: Radiologic exam of the chest. Views: 1 view. COMPARISON: CR (CHEST, ) 11/10/2022 5:37 AM FINDINGS: Tubes, catheters and devices: Right-sided PICC line with tip just distal to the atrial caval junction. Lungs: See Heart/Mediastinum finding. Pleural spaces: Unremarkable. No pleural effusion. No pneumothorax. Heart/Mediastinum: Cardiomegaly and mild pulmonary vascular congestion. Bones/joints: Unremarkable. XR/XR chest 1V portable [id number] IMPRESSION: 1. Right-sided PICC line with tip just distal to the atrial caval junction. 2. Cardiomegaly and mild pulmonary vascular congestion.
[2022-11-10 23:00] LABS: ABG PCO2 24.7 mmHg (35-45); ABG PH Result 7.41 (7.35-7.45); Alveolar-Arterial Oxygen Gradi 5.1 mmHg (5-10); Base Excess ABG -7.3 mmol/L (-2.0-2.0); Blood Gas Allen Test Pos; Blood Gas Sample Type Arterial; Carboxyhemoglobin 0.9 %THgb (0.4-20.1); HCO3 ABG 15.7 mmol/L (22-26); HGB O2 Sat 95.6 % (95-100); Ionized Calcium Level - ABG 0.9 mmol/L (1.1-1.4); Methemoglobin 0.8 % (0.4-1.5); Oxygen Saturation ABG 97.2; PO2 ABG 77.8 mmHg (80.0-100.0); Potassium Level - ABG 3.5 mmol/L (3.5-5.0); Total Hemoglobin 12.4 g/dL (14-18)
[2022-11-10 23:21] LABS: Lactate (Lactic Acid level) 4.6 mmol/L (0.5-2.2)
[2022-11-10 23:28] LABS: Partial Thromboplastin Time 153.2 SECONDS (23.9-36.7)
[2022-11-11] VITALS (222 sets, daily range): BP systolic 75–143; BP diastolic 50–85; PULSE 73–126; RESP 17–43; TEMP 37.1–39.3; O2SAT 79–100
[2022-11-11] MEDS: clindamycin 600 MG/50 ML PREMIX 100 MG IV ×3 (00:42→15:32)
[2022-11-11] MEDS: ipratropium-albuterol 3 mL Neb INHALATION ×4 (01:52→20:25)
[2022-11-11 02:03] LABS: Hematocrit 35.5 % (42.0-52.0); Hemoglobin 12.1 g/dL (11.7-16.6); Mean Corpuscular HGB Conc 34.1 g/dL (30.0-36.0); Mean Corpuscular Hemoglobin 29.4 pg (28.0-34.0); Mean Corpuscular Volume 86.2 fl (80-94); Mean Platelet Volume 10.9 fL (7.4-10.4); Platelet Count 65 10^3/cmm (130-400); Red Blood Count 4.12 10^6/uL (4.1-5.3); Red Cell Distribution Width 13.9 % (12.1-15.1); White Blood Count 19.3 10^3/uL (4.0-10.0)
[2022-11-11 02:13] LABS: INR 1.91 (0.8-1.2)
[2022-11-11 02:20] LABS: Ammonia 24 umol/L (16-60)
[2022-11-11 02:24] LABS: Partial Thromboplastin Time 119.9 SECONDS (23.9-36.7)
[2022-11-11 02:25] LABS: Slide Review Slide Review Perform
[2022-11-11 02:26] LABS: Absolute Neutrophil 18.3 10^3/cmm (1.4-6.5); Absolute Segmented Neutrophil 15.2 10/cmm (1.6-7.1); Band Neutrophils Absolute 3.1 10^3/cmm (0.0-1.2); Eosinophils 0 %; Lymphocytes 2 %; Lymphocytes Absolute 0.4 10^3/cmm (1.2-3.4); Monocytes Absolute 0.6 10^3/cmm (0.1-0.6); Platelet Estimate Decreased (Normal); Segmented Neutrophils 79 %; Total Cells Counted 100 (0-100)
[2022-11-11 02:30] LABS: D Dimer >= 20.00 ug/mIFEU (0-0.59)
[2022-11-11 02:35] LABS: NT Pro B Type Natriuretic Pept 11724 pg/mL (0-125); Procalcitonin 61.89 ng/mL (0-0.5)
[2022-11-11 02:41] LABS: Lactate (Lactic Acid level) 5.6 mmol/L (0.5-2.2)
[2022-11-11 02:46] LABS: Alanine Aminotransferase 25 U/L (0-41); Albumin Level 3.3 g/dL (3.5-5.2); Alkaline Phosphatase 45 U/L (40-130); Anion Gap 19.7 (5-19); Aspartate Amino Transferase 98 U/L (0-40); Blood Urea Nitrogen 44 mg/dL (8-23); C Reactive Protein 254.3 mg/L (0.0-4.9); Calcium 6.4 mg/dL (8.5-10.5); Carbon Dioxide 16 mmol/L (22-29); Chloride 110 mmol/L (98-107); Globulin 1.5 g/dL (1.3-4.6); Glucose 96 mg/dL (65-115); Magnesium 1.6 mg/dL (1.7-2.3); Osmolality Calculated 305 mOsm/kg (285-295); Phosphorus 3.5 mg/dL (2.5-4.5); Potassium 3.7 mmol/L (3.5-5.1); Sodium 142 mmol/L (136-145); Total Bilirubin 0.8 mg/dL (0.15-1.2); Total Protein 4.8 g/dL (6.6-8.7)
[2022-11-11] MEDS: PIGGYBACK IV (02:52)
[2022-11-11] MEDS: ACETAMINOPHEN 500 MG/50 ML IV (02:52)
[2022-11-11] MEDS: haloperidol inj 5 mg/mL INJ 1 mL 2 MG IM (03:30)
[2022-11-11] MEDS: meropenem 1,000 MG in sodium chloride 0.9% (plus) 50 ML 100 MG IV ×2 (03:40→15:32)
[2022-11-11] MEDS: albumin 25 G/100 ML BAG 60 G IV ×3 (03:40→20:16)
[2022-11-11 04:52] LABS: ABG PCO2 25.7 mmHg (35-45); Arterial Blood Gas Hematocrit 50.1 % (42-52); Base Excess ABG -6.8 mmol/L (-2.0-2.0); Blood Gas Allen Test Pos; Blood Gas Operator Identificat JB; Blood Gas Sample Site Radial, right; Blood Gas Sample Type Arterial; HCO3 ABG 15.9 mmol/L (22-26); Oxygen Device NC; PO2 ABG 79.1 mmHg (80.0-100.0)
--- NOTE | 2022-11-11 06:17 | PC.NURSE ---
Upon arrival to shift, patient was already altered mentally. Patient started to become more restless and agitated throughout the night but began to come around and fall asleep. Patient then woke up and disconnected himself from the monitor and pulled out his PICC line. Patient was very agitated at this time. Patient then had 3 peripheral lines placed and received 2 mg of haloperidol IM. Patient is now alert and oriented and very friendly and cooperative. at bedside
[2022-11-11 06:57] LABS: Partial Thromboplastin Time 91.8 SECONDS (23.9-36.7)
--- NOTE | 2022-11-11 07:00 | XRR_ITS ---
PROCEDURE INFORMATION: Exam: XR Chest Exam date and time: 11/11/2022 4:45 AM Age: 72 years old Clinical indication: Shortness of breath; Additional info: SOB TECHNIQUE: Imaging protocol: Radiologic exam of the chest. Views: 1 view. COMPARISON: CR (CHEST, ) 11/10/2022 9:57 PM FINDINGS: Lungs: There is mildly increased lung markings, which may be secondary to low lung volumes or mild pulmonary congestion. Pleural spaces: Unremarkable. No pleural effusion. No pneumothorax. Heart/Mediastinum: Stable cardiomediastinal silhouette. Bones/joints: Unremarkable. Interval removal of right PICC. XR/XR chest 1V portable [id number] IMPRESSION: Low lung volumes versus mild pulmonary congestion. Pneumonia should be excluded clinically. Marked
[2022-11-11 07:03] LABS: Lactate (Lactic Acid level) 6.1 mmol/L (0.5-2.2)
[2022-11-11] MEDS: magnesium sulfate premix 2 GM/50 ML PIGGYBACK IV (07:47)
[2022-11-11] MEDS: sodium bicarbonate 150 MEQ in dextrose 5% 1,000 ML 100 MEQ IV (07:48)
[2022-11-11 08:03] LABS: Creatine Phosphokinase 1328 U/L (39-308)
[2022-11-11] MEDS: heparin drip 25,000 UNIT/500 ML PREMIX 12 UNIT IV (08:19)
--- NOTE | 2022-11-11 08:20 | PC.NURSE ---
Heparin drip running at 12ml/hr or 6.82 units/hr at start of this shift. MAR updated to reflect this.
[2022-11-11] MEDS: vancomycin 1,250 MG/250 ML PIGGYBACK 250 MG IV (10:55)
[2022-11-11] MEDS: doxycycline 100 MG in sodium chloride 0.9% (plus) 100 ML IV (10:58)
[2022-11-11 11:01] LABS: Urea Nitrogen,Urine Random 807 mg/dL
[2022-11-11] MEDS: acetaminophen 650 mg Supp PR (11:05)
[2022-11-11 11:25] LABS: Partial Thromboplastin Time 72.2 SECONDS (23.9-36.7)
--- NOTE | 2022-11-11 11:27 | PC.NURSE ---
Dr. Valdez notified of patient change in condition, increased heart rate, increasing temperature, diaphoretic, modeling of legs, and respiratory rate increasing. See MAR for medication administration.
[2022-11-11 11:31] LABS: Lactic Sepsis W/Reflex 5.5 mmol/L (0.5-2.2)
--- NOTE | 2022-11-11 11:34 | PC.NURSE ---
Heparin Drip titration: Aptt 72.2, No change according to protocol in AUG. Timed lab draw for 6hours.
[2022-11-11 11:42] LABS: ABG PCO2 25.2 mmHg (35-45); ABG PH Result 7.48 (7.35-7.45); Alveolar-Arterial Oxygen Gradi 13.1 mmHg (5-10); Arterial Blood Gas Hematocrit 39.3 % (42-52); Base Excess ABG -3.3 mmol/L (-2.0-2.0); Blood Gas Operator Identificat MONRO; Blood Gas Sample Site Brachial, left; Blood Gas Sample Type Arterial; Carboxyhemoglobin 0.8 %THgb (0.4-20.1); HCO3 ABG 18.7 mmol/L (22-26); Ionized Calcium Level - ABG 0.9 mmol/L (1.1-1.4); Methemoglobin 0.6 % (0.4-1.5); Oxygen Device NC; Oxygen Saturation ABG 95.3; PO2 ABG 65.8 mmHg (80.0-100.0); Potassium Level - ABG 3.3 mmol/L (3.5-5.0); Total Hemoglobin 12.8 g/dL (14-18)
[2022-11-11] MEDS: FUROsemide 10 mg/mL SDV 4mL 40 MG IVP (11:54)
--- NOTE | 2022-11-11 12:09 | CT_ITS ---
WS: [id number] CT HEAD TECHNIQUE: Noncontrast CT of the head obtained from the skullbase to the vertex. CLINICAL INFORMATION: ams COMPARISON: November 09, 2022 DLP: 1173.[address] scans at [facility] use at least one of these dose optimization techniques: automated e xposure control; mA and/or kV adjustment per patient size (includes targeted exams where dose is matc hed to clinical indication); or iterative reconstruction. FINDINGS: No evidence of intracranial hemorrhage or mass effect. Ventricular system and basal cisterns are martin nt. Minimal small vessel changes with mild parenchymal volume loss. No extra-axial fluid collections. No evidence of mass or mass effect. Mild mucosal thickening ethmoid air cells. Mastoid air cells well aerated. Intracranial vascular calc ification. No hydrocephalus. CT/CT head wo con* [id number] IMPRESSION: 1. No evidence of intracranial hemorrhage or mass effect. 2. Minimal small vessel changes with mild parenchymal volume loss. 3. No acute intracranial findings and no significant changes since November 09.
--- NOTE | 2022-11-11 12:09 | CT_ITS ---
WS: [id number] CT CHEST, ABDOMEN, AND PELVIS TECHNIQUE: Noncontrast CT of the chest, abdomen, and pelvis with coronal and sagittal reformatted thuy ges. CLINICAL INFORMATION: sepsis, persistent lactic acidosis COMPARISON: CTA chest November 09, 2022 DLP: 1130.[address] scans at [facility] use at least one of these dose optimization techniques: automated e xposure control; mA and/or kV adjustment per patient size (includes targeted exams where dose is matc hed to clinical indication); or iterative reconstruction. CT CHEST: Small bilateral pleural effusions are new from previous. Compressive atelectasis and infiltrates in t he lung bases. Correlation for pneumonia. Shallow inspiration. New focal hazy groundglass opacities i n the RIGHT upper lobe at the lung apex. This is also new from previous. Moderate chronic emphysematous changes. Normal caliber thoracic aorta. Coronary calcification. No axi llary lymphadenopathy. Mild thoracic kyphosis. Hypertrophic changes thoracic spine. CT ABDOMEN AND PELVIS: Noncontrast CT abdomen pelvis. Noncontrast liver is normal. Normal noncontrast spleen. Normal GE junc tion. Stomach is decompressed. Adrenal glands are normal. No hydronephrosis in either kidney. Bilater al perinephric edema has progressed compared to previous. This can be seen with renal insufficiency o r UTI. Stable bilateral renal cysts largest in the LEFT. Adrenal glands are normal. Mild aortic calci fication. Merlos catheter. Enlarged prostate. No definite evidence of prostatitis. Sigmoid diverticulosis. No evidence of acute diverticulitis. Moderate spondylitic changes lumbar spin e. Calcified RIGHT synovial cyst at RIGHT L4-L5 results in mild to moderate RIGHT to LEFT central can al stenosis. Narrowing of the RIGHT L4-L5 proximal neural foramen. Advanced facet arthropathy L4-L5. Air-fluid levels normal caliber transverse colon likely due to ileus. Rectosigmoid distention. Rectal tube. CT/[place] [id number] IMPRESSION: 1. Small bilateral pleural effusions with compressive atelectasis in the lung bases new from previous. 2. Patchy infiltrates in the lung bases are new. Recommend correlation for pne umonia. 3. New groundglass subpleural airspace opacities in the RIGHT upper lobe anter iorly at the lung apex. This may be infectious or inflammatory but consider sep tic emboli or pulmonary infarcts. No cavitation. 4. No hydronephrosis in either kidney. New perirenal inflammatory stranding an d edema can be seen with UTI or renal insufficiency. 5. Merlos catheter. Prostate enlargement. No evidence of prostatitis on this no ncontrast study. 6. Sigmoid diverticulosis. 7. A few air-fluid levels in normal caliber transverse colon likely due to ile us. 8. No other acute findings. Notified Fernando Valdez MD at 11/11/2022 2:15 PM.
[2022-11-11] MEDS: acyclovir 1,000 MG in sodium chloride 0.9% 250 ML 270 MG IV ×2 (12:23→20:16)
[2022-11-11 12:50] LABS: Reflex Lactate Order REFLEX LACTIC ORDERD
[2022-11-11 12:57] LABS: Lactate Dehydrogenase 359 U/L (135-225)
[2022-11-11 13:45] LABS: Lactic Acid level (Lactate) 5.3 mmol/L (0.5-2.2)
[2022-11-11 14:18] LABS: Amylase 178 U/L (28-100); Lipase 7 U/L (13-60)
[2022-11-11 14:32] LABS: Ferritin 1139 ng/mL (30-400)
[2022-11-11 14:41] LABS: Blood Gas Operator Identificat BISJE; Blood Gas Sample Site ART
[2022-11-11 14:44] LABS: LAB Peripheral Smear Sent for Review
--- NOTE | 2022-11-11 15:10 | P.PN_ITS ---
Subjective Subjective: looks ill febrile BP stable Medications: Reviewed: Yes Vitals/I&O/Wt Last Vital Signs Temp 101.8 F H 11/11/22 13:30 Pulse 122 H 11/11/22 13:30 Resp 30 H 11/11/22 13:30 BP 111/56 11/11/22 13:30 Pulse Ox 95 11/11/22 13:30 O2 Del Method Nasal Cannula 11/11/22 13:30 O2 Flow Rate 2 11/11/22 13:23 11/11/22 11/11/22 11/11/22 06:59 14:59 22:59 Intake Total 309 / 6487.253 3313.333 / 3313.333 Output Total 850 / 2250 350 / 350 Balance -541 / 4237.253 2963.333 / 2963.333 Weight last 48 hrs Weight 88.451 kg Weight 98.43 kg Weight 87.997 kg Weight 81.647 kg Physical Exam Narrative: sleeping , arousable Urinary Catheter Management: Merlos: Cath Placed During This Visit: yes Reason for Continuing Indwelling Catheter: Accurate Measurement of Urinary Output in Critically Ill Patients Urinary Catheter Date of Insertion: 11/09/22 Urinary Catheter Time of Insertion: 18:54 Data 11/11/22 01:33 11/11/22 01:33 Micro: Microbiology 11/11/22 11:17 Blood Culture - Preliminary Blood SPECIMEN COLLECTED 11/11/22 11:15 Blood Culture - Preliminary Blood SPECIMEN COLLECTED 11/09/22 18:50 Urine Culture - Final Urine,Clean Catch 11/10/22 17:50 Bacterial Antigens - Final Urine Kidney 11/09/22 16:07 Blood Culture - Preliminary Blood NEGATIVE TO DATE 11/09/22 16:07 Blood Culture - Preliminary Blood NEGATIVE TO DATE 11/09/22 19:55 MRSA Culture - Final Nose A&P Assessment and plan (1) Acute renal failure: Plan 1. Acute kidney injury: No prior labs available to compare for baseline. Presented with a creatinine of 3.1 improved to 2.3 currently SOUMYA likely from ATN from sepsis and possible urinary retention. -Renal function has improved, has adequate urine output, continue to monitor -No indication for renal replacement therapy, , c/w IV bicarbonate drip due to severe metabolic acidosis. -Avoid nephrotoxins and IV contrast studies. 2. Septic shock: possible pyelonephritis and aspiration pneumonia,? other etiologies , further work-up is in progress, lumbar puncture ordered, Lyme s erologies pending 3. Respiratory failure: Stable currently on 4 L nasal cannula 4 Anion gap metabolic acidosis: Secondary to lactic acidosis, other etiologies reviewed c/w Bicarbonate drip 5. Left kidney complex cyst and subcentimeter kidney stones, outpatient urology follow-up Patient evaluated using audiovisual cart. Time spent 45 minutes Attestations Medical Necessity Statement*: per medicine Coding Level of Care Code Acute Code for Chg Fwd Diagnoses Acute renal failure N17.9
[2022-11-11 15:33] LABS: Adenovirus Not Detected (NOT DETECT); Chlamydia Pneumoniae Not Detected (NOT DETECT); Coronavirus 229E,HKU1,NL63,OC4 Not Detected (NOT DETECT); Human Metapneumovirus Not Detected (NOT DETECT); Human Rhinovirus/Enterovirus Not Detected (NOT DETECT); Influenza A Not Detected (NOT DETECT); Influenza A H1 Not Detected (NOT DETECT); Influenza A H1-2009 Not Detected (NOT DETECT); Influenza A H3 Not Detected (NOT DETECT); Influenza B Not Detected (NOT DETECT); Mycoplasma Pneumoniae Not Detected (NOT DETECT); Parainfluenza Virus Type 1 Not Detected (NOT DETECT); Parainfluenza Virus Type 2 Not Detected (NOT DETECT); Parainfluenza Virus Type 3 Not Detected (NOT DETECT); Parainfluenza Virus Type 4 Not Detected (NOT DETECT); Respiratory Syncytial Virus A Not Detected (NOT DETECT); Respiratory Syncytial Virus B Not Detected (NOT DETECT); SARS-COV-2 Not Detected (NOT DETECT)
--- NOTE | 2022-11-11 15:36 | PC.PHAR ---
PHARMACY TO DOSE CONSULT - VANCOMYCIN With the patients improving CrCl, we calculated his new dose of vancomycin at 1250mg every 24 hours, an increase from every 36 hours. With the new frequency, the predicted peak was calculated at 36.5 mcg/ml and trough 17.09 mcg/ml. Pharmacy will continue to monitor this patient's renal function and trough levels, making necessary changes as required. Please let us know if there is anything else we can do in the care of this patient. Thanks, Jake Meza, Pharm. D
--- NOTE | 2022-11-11 16:37 | P.PN_ITS ---
Subjective Subjective: - Patient was examined multiple times throughout the day -Overnight patient had episodes of encephalopathy, confusion, he ripped out his IVs, ripped out his PICC line -But after he was more calm, alert and awake -This morning during my examination, he was resting comfortably, sleeping, normotensive, afebrile, heart rates in the 110s sinus rhythm, does have mottling of bilateral lower extremities up to the level of the shins, DP PT pulses diminished bilaterally, but palpable, cap refill greater than 2 seconds, he is remains off Levophed -I wanted to let him rest, -He is reexamined about 2 hours later, he is alert and awake to person, to place, not to time he follows commands, he has no complaints, he does complain of pain along his rash on his chest, -He has no neck pain, neck stiffness, no nuchal rigidity -Patient continues to have lactic acidosis, and acidemia despite being on optima l medical therapy blood cultures negative urine cultures are negative he did develop a fever early in the morning -I had a discussion with patient, he does report that \Wednesday morning he did wash his cars, he thinks he was using ethylene glycol he is not sure if he ingested it -I spoke to nephrology about possible ethylene glycol poisoning, they recommended ordering ethylene glycol levels which have already ordered, ordered urine and serum osmolalities -I also spoke to poison control, about the case, after going over labs, and serum osmolalities, it was deemed that ethylene glycol poisoning was very unlikely -As patient had persistently elevated lactic acids, persistent acidemia, and now developing fever, who was concerned was that he could have another source of infection -As urine cultures negative blood cultures negative, respiratory viral panel is negative, his leukocytosis has increased, but he has received steroids -I went over the case again with radiology, there is no significant evidence of prostatic abscess as a source, -Again we went over his CAT scans of his chest of his neck, there is definitely soft tissue swelling along those locations, but no significant radiographic evidence of necrotizing fasciitis, and clinically on examination it does not behave like that, skin is certainly erythematous, indurated, blanching, extending from the mid left clavicle, to the left anterior chest around to the posterior cervical region -I repeated a CT chest abdomen pelvis with the head -CT of the chest abdomen shows bilateral pneumonias, right upper lobe pneumonia, highly suspicious for recurrent aspiration event, aspiration pneumonia, we will keep him n.p.o. -There is some edema around the left kidney, it could be pyelonephritis, UTI, he is on antibiotic therapy -I am highly suspicious that patient's sudden elevation of troponin yesterday, could certainly be supply/demand ischemia from underlying CAD but it could have been an embolization for pulmonary embolism -As patient's D-dimer is quite high, his initial troponins were negative when he came in his CT was negative, his venous ultrasound was negative for DVT, but with hypercoagulability associate with his septic shock and he was on Lovenox therapeutic, he certainly could have developed pulmonary embolism. This could explain his nonspecific ST-T wave changes on EKG his echocardiogram findings, and his troponin elevation but there was no significant right heart strain that was seen on echo, but this is certainly a thought he is on anticoagulation -Given his persistent lactic acid, negative cultures, he is intermittently developing encephalopathy -I was then concerned for the possibility of meningitis, I placed him on isolation, repeated his blood cultures, sputum cultures, urine cultures -Discussed with radiology about performing a lumbar puncture unfortunately cannot be done today given his INR 1.9, his platelet count 65 -This could be consumptive coagulopathy, component of DIC -Plan is to hold the heparin drip tomorrow at roughly 4 AM, repeat INR and platelet count -If they are reasonable we will go ahead and perform lumbar puncture roughly 10 AM -I have started him on acyclovir for viral meningitis -Reexamined in the afternoon, I had extensive discussion with him about this, his only complaint is that he has not eaten in 2 days and is very hungry he is alert to person, to place, not time, he follows all commands, he still looks sick, he is tachypneic, but he follows commands, he is tachycardic heart rates in the 120s sinus rhythm, normotensive, he has had good urine output, he does have crackles on exam so I gave him Lasix, will start him on D5 normal saline Vitals/I&O/Wt Last Vital Signs Temp 101.8 F H 11/11/22 13:30 Pulse 122 H 11/11/22 15:13 Resp 30 H 11/11/22 13:30 BP 111/56 11/11/22 13:30 Pulse Ox 95 11/11/22 13:30 O2 Del Method Nasal Cannula 11/11/22 13:30 O2 Flow Rate 2 11/11/22 13:23 11/11/22 11/11/22 11/11/22 06:59 14:59 22:59 Intake Total 309 / 6487.253 3313.333 / 3313.333 100 / 3413.333 Output Total 850 / 2250 350 / 350 Balance -541 / 4237.253 2963.333 / 2963.333 100 / 3063.333 Weight last 48 hrs Weight 88.451 kg Weight 98.43 kg Weight 87.997 kg Physical Exam Const: COMMON NORMALS: no acute distress GENERAL APPEARANCE: ill appearing ORIENTATION/CONSCIOUSNESS: Yes awake, Yes oriented to person and Yes oriented to place; not oriented to time Neck/C-Spine: COMMON NORMALS: no JVD Resp: COMMON NORMALS: normal respiratory effort, No retractions and No use of accessory muscles AUSCULTATION: crackles Cardio: COMMON NORMALS: no JVD, regular rhythm, S1 normal heart sound present and S2 normal heart sound present RATE: tachycardic RHYTHM: regular rhythm HEART SOUNDS: S1 normal heart sound present and S2 normal heart sound present GI: COMMON NORMALS: Normal to inspection, nondistended, normoactive bowel sounds present and non-tender Neuro: SENSORIUM/ORIENTATION: Yes oriented to person, Yes oriented to place and No oriented to time Psych: COMMON NORMALS: mental status grossly normal Urinary Catheter Management: Merlos: Cath Placed During This Visit: yes Reason for Continuing Indwelling Catheter: Accurate Measurement of Urinary Output in Critically Ill Patients Urinary Catheter Date of Insertion: 11/09/22 Urinary Catheter Time of Insertion: 18:54 Sepsis: Is patient septic: Yes Focused sepsis exam performed: Yes Focused sepsis exam: Bilateral mottling lower extremities, bilateral lower extremities with a bluish hue, DP PT pulses, diminished, capillary refill greater than 2 seconds, mottling at the level of the shins Date exam was performed: 11/11/22 Time exam was performed: 08:15 Data 11/11/22 01:33 11/11/22 01:33 Micro: Microbiology 11/11/22 11:17 Blood Culture - Preliminary Blood SPECIMEN COLLECTED 11/11/22 11:15 Blood Culture - Preliminary Blood SPECIMEN COLLECTED 11/09/22 18:50 Urine Culture - Final Urine,Clean Catch 11/10/22 17:50 Bacterial Antigens - Final Urine Kidney 11/09/22 16:07 Blood Culture - Preliminary Blood NEGATIVE TO DATE 11/09/22 16:07 Blood Culture - Preliminary Blood NEGATIVE TO DATE 11/09/22 19:55 MRSA Culture - Final Nose A&P Assessment and plan (1) Acute pyelonephritis: (2) Urinary tract infection: (3) Acute encephalopathy: (4) Lactic acidosis: (5) Metabolic acidosis: (6) Septic shock: (7) Acute renal failure: (8) Hypokalemia: (9) NSTEMI (non-ST elevated myocardial infarction): (10) Gallbladder sludge: (11) Left renal stone: (12) Enlarged prostate: (13) Acute respiratory failure with hypoxia: (14) Aspiration pneumonia: (15) Aspiration pneumonitis: (16) Goals of care, counseling/discussion: (17) Urinary retention: (18) Sepsis: (19) Rhabdomyolysis: (20) Cellulitis: (21) Acute prostatitis: (22) Troponin level elevated: (23) DIC (disseminated intravascular coagulation): (24) Meningitis: Plan Acute hypoxic respiratory failure -Potentially secondary to aspiration pneumonia, aspiration pneumonitis -CT of the chest shows bilateral infiltrates, right upper lobe, infiltrate, Plan -We will monitor respiratory status closely -Low threshold for intubation -Respiratory therapy Polly villegas treatments -On broad-spectrum antibiotic therapy -Sputum cultures, blood cultures repeated -Keep n.p.o. -D5 normal saline Urinary tract infection, with acute pyelonephritis, with possible acute prostatitis -With underlying enlarged prostate, with concerns for urinary retention, concerns for acute prostatitis although CT scan did not show radiographic evidence of prostate enlargement -Initial urine culture negative, initial blood cultures negative -Repeat cultures ordered -Follow blood cultures -Follow urine cultures -Continue vancomycin, Merrem [place] Am -Monitor creatinine, monitor urine output -Spoke to Dr. Pulido urology, given his left hydronephrosis and lactic acidosis, his septic shock, and I want to make sure that he does not have any stentable pathology, no underlying abscess, or obstructive uropathy. Although I spoke to virtual radiology, who advised me that there was no hydronephrosis, but did have a left kidney stone, repeat renal ultrasound does not show any signi ficant obstructive uropathy, spoke to radiology again today no significant radiographic evidence of prostatic abscess,, left kidney does have induration possible evidence of pyelonephritis or UTI Left neck swelling, cellulitis, meningitis rash? -We will monitor clinically -Has had extensive work-up as above -Continue vancomycin, meropenem, added clindamycin Septic shock -Likely multifactorial from UTI, pyelonephritis, prostatitis, respiratory failure, aspiration pneumonia -Currently off Levophed -Currently on fluid therapy -Stress dose steroids -Albumin therapy -Antibiotics as above -IV, maintain MAP greater than 65 Levophed if needed NSTEMI -Aspirin, statin, heparin -Serial EKGs, serial troponins, telemetry monitoring -Likely secondary to septic shock, sepsis, acute pyelonephritis -Given significant troponin elevation there is concern for underlying CAD -The other thought is he could have embolized a clot, causing pulmonary embolism, causing sudden elevation of troponin yesterday afternoon, due to hypercoagulability associated with septic shock and sepsis, DIC -Cardiology consulted -We will monitor -Continue to monitor telemetry -Currently on heparin drip DIC -Has evidence of DIC -Secondary to sepsis, septic shock Acute renal failure, improving --Likely sec to urinary tension, dehydration, sepsis -Monitor urine output, monitor lactic acids, monitor creatinine Acute encephalopathy, likely secondary to sepsis, UTI, aspiration pneumonia, sepsis shock Metabolic acidosis, off bicarb drip, improving Hypoalbuminemia, albumin therapy Hypokalemia, resolving Thrombocytopenia, possible consumptive coagulopathy, peripheral smear ordered, HIT panel ordered Lactic acidosis, secondary to septic shock, secondary to UTI, aspiration pneumonia, prostatitis, cellulitis as above trend lactic acids Left kidney stone Moderate to severely enlarged prostate, will monitor, might require a prostatic ultrasound to evaluate for prostatic abscess based on clinical progress Concerns for meningitis -Due to persistent lactic acid -Negative cultures -Evidence of encephalopathy -Kernig sign negative, Babinski sign negative -Placed on isolation -He is already on vancomycin, meropenem, doxycycline -I have added acyclovir for viral meningitis Goals of care discussion, spoke to patient's , he is a full code however he does have paperwork filled out for his living well, he does not want life- sustaining measures if there is no likelihood of meaningful recovery Heparin drip for DVT prophylaxis Full code Spoke to patient, spoke to , spoke to radiology, spoke to urology, spoke to poison control, spoke to nephrology Patient's status is stable, prognosis is guarded Attestations Medical Necessity Statement*: Patient requires hospitalization for persistent lactic acidosis, sepsis, concerns for meningitis, encephalopathy, cellulitis, acute renal failure, DIC, thrombocytopenia Coding Level of Care Code Critical Care >/= 30 minutes Critical care time (in minutes): 90 The high probability of a clinically significant, sudden or life threatening deterioration, as referenced in this documentation, required my full and direct attention, intervention and personal management. The critical care time shown is in addition to time spent performing any reported separately billable procedures and includes the following: [x] Data and vital sign review and interpretation [x ] Patient assessment, examination and intervention [x] Medication orders and management [x] Patient/Family updates as able [x] Care Coordination and Documentation. Diagnoses Acute pyelonephritis N10 Urinary tract infection N39.0 Acute encephalopathy G93.40 Lactic acidosis E87.20 Metabolic acidosis E87.20 Septic shock A41.9; R65.21 Acute renal failure N17.9 Hypokalemia E87.6 NSTEMI (non-ST elevated myocardial infarction) I21.4 Gallbladder sludge K82.8 Left renal stone N20.0 Enlarged prostate N40.0 Acute respiratory failure with hypoxia J96.01 Aspiration pneumonia J69.0 Aspiration pneumonitis J69.0 Goals of care, counseling/discussion Z71.89 Urinary retention R33.9 Sepsis A41.9 Rhabdomyolysis M62.82 Cellulitis L03.90 Acute prostatitis N41.0 Troponin level elevated R77.8 DIC (disseminated intravascular coagulation) D65 Meningitis G03.9
[2022-11-11] MEDS: dextrose 5%-sod chloride 0.9% 1,000 ML 50 ML IV (17:18)
--- NOTE | 2022-11-11 17:20 | PM.PN ---
Subjective Subjective: Patient denies chest pain. Troponins did not elevate up significantly. He is febrile. EKG not showing STEMI. Vitals/I&O/Wt Last Vital Signs Temp 101.8 F H 11/11/22 13:30 Pulse 122 H 11/11/22 15:13 Resp 30 H 11/11/22 13:30 BP 111/56 11/11/22 13:30 Pulse Ox 95 11/11/22 13:30 O2 Del Method Nasal Cannula 11/11/22 13:30 O2 Flow Rate 2 11/11/22 13:23 11/11/22 11/11/22 11/11/22 06:59 14:59 22:59 Intake Total 309 / 6487.253 3313.333 / 3313.333 928.333 / 4241.666 Output Total 850 / 2250 350 / 350 Balance -541 / 4237.253 2963.333 / 2963.333 928.333 / 3891.666 Weight last 48 hrs Weight 195 lb Weight 217 lb Weight 194 lb Physical Exam Narrative: Confused Resp: OTHER: Diminished air entry Cardio: COMMON NORMALS: regular rate, regular rhythm, S1 normal heart sound present and S2 normal heart sound present RATE: regular rate RHYTHM: regular rhythm HEART SOUNDS: S1 normal heart sound present and S2 normal heart sound present Urinary Catheter Management: Merlos: Cath Placed During This Visit: yes Reason for Continuing Indwelling Catheter: Accurate Measurement of Urinary Output in Critically Ill Patients Urinary Catheter Date of Insertion: 11/09/22 Urinary Catheter Time of Insertion: 18:54 Data 11/12/22 02:24 11/12/22 02:24 Micro: Microbiology 11/11/22 11:17 Blood Culture - Preliminary Blood SPECIMEN COLLECTED 11/11/22 11:15 Blood Culture - Preliminary Blood SPECIMEN COLLECTED 11/09/22 18:50 Urine Culture - Final Urine,Clean Catch 11/10/22 17:50 Bacterial Antigens - Final Urine Kidney 11/09/22 16:07 Blood Culture - Preliminary Blood NEGATIVE TO DATE 11/09/22 16:07 Blood Culture - Preliminary Blood NEGATIVE TO DATE A&P Assessment and plan (1) Troponin level elevated: (2) Acute renal failure: (3) Septic shock: (4) Lactic acidosis: (5) Acute encephalopathy: (6) Urinary tract infection: Plan Troponins did not trend up significantly however it is likely secondary to demand ischemia. Continue heparin drip. LV systolic function is borderline low. Once patient is more stable, we will proceed with ischemic work-up. EKG not showing ST elevation. Thank you for involving us with care of this patient . We will continue to follow.Please call with questions Attestations Medical Necessity Statement*: Care expected to cross 2 midnights. Coding Level of Care Code Acute Code for Chg Fwd Diagnoses Troponin level elevated R77.8 Acute renal failure N17.9 Septic shock A41.9; R65.21 Lactic acidosis E87.20 Acute encephalopathy G93.40 Urinary tract infection N39.0
[2022-11-11 17:36] LABS: Hemoglobin 12.7 g/dL (11.7-16.6); Mean Corpuscular HGB Conc 35.3 g/dL (30.0-36.0); Mean Corpuscular Hemoglobin 29.9 pg (28.0-34.0); Mean Corpuscular Volume 84.7 fl (80-94); Mean Platelet Volume 11.9 fL (7.4-10.4); Platelet Count 43 10^3/cmm (130-400); Red Blood Count 4.25 10^6/uL (4.1-5.3); White Blood Count 20.5 10^3/uL (4.0-10.0)
[2022-11-11 17:44] LABS: Partial Thromboplastin Time 59.9 SECONDS (23.9-36.7)
--- NOTE | 2022-11-11 17:47 | PC.NURSE ---
Heparin drip: Aptt 59.9, No change, repeat PTT in 6 hours. Current rate 6.82U/KG/HR, 12mls/hr.
[2022-11-11 17:51] LABS: Alanine Aminotransferase 27 U/L (0-41); Albumin Level 3.3 g/dL (3.5-5.2); Alkaline Phosphatase 59 U/L (40-130); Anion Gap 17.8 (5-19); Aspartate Amino Transferase 94 U/L (0-40); Blood Urea Nitrogen 34 mg/dL (8-23); Carbon Dioxide 24 mmol/L (22-29); Chloride 104 mmol/L (98-107); Globulin 1.9 g/dL (1.3-4.6); Glucose 168 mg/dL (65-115); Osmolality Calculated 307 mOsm/kg (285-295); Sodium 143 mmol/L (136-145); Total Bilirubin 1.3 mg/dL (0.15-1.2); Total Protein 5.2 g/dL (6.6-8.7)
[2022-11-11 17:57] LABS: Potassium 2.8 mmol/L (3.5-5.1)
[2022-11-11 18:06] LABS: INR 1.45 (0.8-1.2)
[2022-11-11] MEDS: potassium chloride premix 100 ML 25 MEQ IV (18:16)
[2022-11-11 18:48] LABS: Slide Review Slide Review Perform
--- NOTE | 2022-11-11 19:32 | XRR_ITS ---
PROCEDURE INFORMATION: Exam: XR Chest Exam date and time: 11/11/2022 6:42 PM Age: 72 years old Clinical indication: Shortness of breath; Additional info: Dyspnea/cough, picc line placement TECHNIQUE: Imaging protocol: Radiologic exam of the chest. Views: 1 view. COMPARISON[place] [id number] 11/11/2022 12:49 PM FINDINGS: Tubes, catheters and devices: Right PICC in satisfactory position, with distal tip in the RA. Lungs: Low lung volumes. There is increased interstitial markings and haziness of the lungs, which in the setting of cardiomegaly is suggestive of pulmonary congestion. Pneumonia should be excluded clinically. Pleural spaces: Unremarkable. No pleural effusion. No pneumothorax. Heart/Mediastinum: Stable cardiomediastinal silhouette. Bones/joints: Unremarkable. XR/XR chest 1V portable [id number] IMPRESSION: Imaging findings suggestive of pulmonary congestion. Pneumonia should be excluded clinically.
[2022-11-11] MEDS: acetaminophen 1,000 MG/100 ML PIGGYBACK 400 MG IV (19:41)
[2022-11-11] MEDS: enoxaparin 100 mg/mL Syringe 90 MG SUBCUT (19:42)
[2022-11-11] MEDS: pantoprazole 40 mg SDV IVP (19:42)
--- NOTE | 2022-11-11 20:49 | PC.NURSE ---
Consulted for PICC placement on a pt who has vasopressors running. Upon arrival noted consent obtained by staff via telephone as pt is not able to sign his own. Pt had pulled out previously placed PICC line. Noted infection to left upper torso of unknown origin. Assessed RUE and noted hematoma over brachial and basilic veins that would rule out sticking inferior to previous site and superior to that site would be too close to armpit for my comfort. Noted cephalic vein was 5mm in diameter and free of evidence of thrombus or stenosis. Using US guidance, MST, and sterile technique the R cephalic vein was accessed x 1 stick. Device fed easily. All 3 ports aspirate and flush. Device secured and dressed. EBL 5ml. Chest xray ordered. Pt tolerated well. Report to primary nurse. Radiologist read device tip in satisfactory position with tip in RA. PICC is 43 cm long and RUE is 30 cm in circumference at 10 cm above the AC fossa.
[2022-11-12] VITALS (83 sets, daily range): BP systolic 78–144; BP diastolic 46–83; PULSE 99–178; RESP 20–45; TEMP 37.7–38.6; O2SAT 89–100
[2022-11-12] MEDS: sodium bicarbonate 150 MEQ in dextrose 5% 1,000 ML 50 MEQ IV (00:35)
[2022-11-12] MEDS: clindamycin 600 MG/50 ML PREMIX 100 MG IV (00:35)
[2022-11-12] MEDS: doxycycline 100 MG in sodium chloride 0.9% (plus) 100 ML IV ×2 (00:38→12:18)
[2022-11-12] MEDS: ipratropium-albuterol 3 mL Neb INHALATION ×3 (01:42→13:58)
[2022-11-12 03:07] LABS: Basophils # 0.2 10^3/uL (0.0-0.1); Basophils % 0.9 %; Eosinophils % 0.1 %; Hematocrit 34.5 % (42.0-52.0); Hemoglobin 12.1 g/dL (11.7-16.6); Lymphocytes # 0.9 10^3/uL (0.8-4.8); Lymphocytes % 5.1 %; Mean Corpuscular HGB Conc 35.1 g/dL (30.0-36.0); Mean Corpuscular Hemoglobin 29.4 pg (28.0-34.0); Mean Corpuscular Volume 83.7 fl (80-94); Mean Platelet Volume 13.3 fL (7.4-10.4); Monocytes # 0.3 10^3/uL (0.2-0.9); Monocytes % 1.5 %; Neutrophils # 15.56 10^3/uL (1.8-7.7); Neutrophils % 92.1 %; Nucleated Red Blood Cells % 0 %; Red Blood Count 4.12 10^6/uL (4.1-5.3); Red Cell Distribution Width 13.8 % (12.1-15.1); White Blood Count 16.9 10^3/uL (4.0-10.0)
[2022-11-12 03:17] LABS: INR 1.46 (0.8-1.2)
[2022-11-12 03:18] LABS: Fibrinogen 526 mg/dL (174-498); Partial Thromboplastin Time 60.7 SECONDS (23.9-36.7)
[2022-11-12 03:22] LABS: Ammonia 20 umol/L (16-60); Lactate (Lactic Acid level) 3.7 mmol/L (0.5-2.2)
[2022-11-12 03:27] LABS: D Dimer 13.17 ug/mIFEU (0-0.59)
[2022-11-12 03:29] LABS: NT Pro B Type Natriuretic Pept 20750 pg/mL (0-125)
[2022-11-12 03:40] LABS: Alanine Aminotransferase 23 U/L (0-41); Albumin Level 3.3 g/dL (3.5-5.2); Alkaline Phosphatase 65 U/L (40-130); Aspartate Amino Transferase 71 U/L (0-40); Blood Urea Nitrogen 38 mg/dL (8-23); C Reactive Protein 245.8 mg/L (0.0-4.9); Calcium 6.8 mg/dL (8.5-10.5); Carbon Dioxide 23 mmol/L (22-29); Chloride 111 mmol/L (98-107); Globulin 1.7 g/dL (1.3-4.6); Glucose 83 mg/dL (65-115); Magnesium 1.9 mg/dL (1.7-2.3); Osmolality Calculated 312 mOsm/kg (285-295); Phosphorus 1.7 mg/dL (2.5-4.5); Sodium 147 mmol/L (136-145); Total Bilirubin 1.5 mg/dL (0.15-1.2)
[2022-11-12 03:42] LABS: Slide Review Slide Review Perform
[2022-11-12 03:43] LABS: Platelet Count 26 10^3/cmm (130-400)
[2022-11-12] MEDS: acyclovir 1,000 MG in sodium chloride 0.9% 250 ML 270 MG IV ×2 (04:19→12:53)
[2022-11-12] MEDS: albumin 25 G/100 ML BAG 60 G IV ×2 (04:20→12:19)
[2022-11-12] MEDS: meropenem 1,000 MG in sodium chloride 0.9% (plus) 50 ML 100 MG IV (04:20)
[2022-11-12] MEDS: blistex lip oint 7 gm Tube 1 APPLIC TOPICAL (05:05)
--- NOTE | 2022-11-12 06:00 | XRR_ITS ---
PROCEDURE INFORMATION: Exam: XR Chest Exam date and time: 11/12/2022 1:14 AM Age: 72 years old Clinical indication: Condition or disease; Lung condition and disease; Pneumonia; Shortness of breath; Additional info: SOB TECHNIQUE: Imaging protocol: Radiologic exam of the chest. Views: 1 view. COMPARISON: CR (CHEST, ) 11/11/2022 6:42 PM FINDINGS: Tubes, catheters and devices: Right PICC in satisfactory position with distal tip in the RA. Lungs: Interval worsening of bilateral airspace opacities. Pleural spaces: Unremarkable. No pleural effusion. No pneumothorax. Heart/Mediastinum: Stable cardiomediastinal silhouette. Bones/joints: Unremarkable. XR/XR chest 1V portable [id number] IMPRESSION: Interval worsening of bilateral airspace opacities, consistent with history of pneumonia. Superimposed pulmonary congestion can have this appearance.
[2022-11-12 06:16] LABS: ABG PCO2 31.8 mmHg (35-45); ABG PH Result 7.52 (7.35-7.45); Base Excess ABG 3.5 mmol/L (-2.0-2.0); Blood Gas Allen Test Pos; Blood Gas Operator Identificat JB; Blood Gas Sample Site Brachial, right; Blood Gas Sample Type Arterial; HCO3 ABG 25.8 mmol/L (22-26); Oxygen Device NC; PO2 ABG 63.7 mmHg (80.0-100.0)
--- NOTE | 2022-11-12 06:33 | PC.NURSE ---
Patient rested through the night well. Temps lowered from a high of 102.7 to around 100 rectally during shift. Patient has been cooperative with this nurse. Patient has complained of dry mouth and frequent sponges have been utilized as well as Blistex.
[2022-11-12 07:54] LABS: LAB Peripheral Smear Sent for Review
--- NOTE | 2022-11-12 08:11 | PM.PN ---
Subjective Subjective: Patient is febrile. He is confused Vitals/I&O/Wt Last Vital Signs Temp 100.4 F H 11/12/22 05:45 Pulse 115 H 11/12/22 07:45 Resp 38 H 11/12/22 07:45 BP 129/64 11/12/22 07:45 Pulse Ox 100 11/12/22 07:45 O2 Del Method Nasal Cannula 11/12/22 01:42 O2 Flow Rate 2 11/12/22 01:42 11/11/22 11/12/22 11/12/22 22:59 06:59 14:59 Intake Total 1741.200 / 5054.533 770 / 5824.533 Output Total 3550 / 3900 750 / 4650 Balance -1808.800 / 1154.533 20 / 1174.533 Weight last 48 hrs Weight 195 lb Weight 217 lb Physical Exam Narrative: Confused Resp: OTHER: Diminished air entry Cardio: COMMON NORMALS: regular rate, regular rhythm, S1 normal heart sound present and S2 normal heart sound present RATE: regular rate RHYTHM: regular rhythm HEART SOUNDS: S1 normal heart sound present and S2 normal heart sound present Urinary Catheter Management: Merlos: Cath Placed During This Visit: yes Reason for Continuing Indwelling Catheter: Accurate Measurement of Urinary Output in Critically Ill Patients Urinary Catheter Date of Insertion: 11/09/22 Urinary Catheter Time of Insertion: 18:54 Data 11/12/22 02:24 11/12/22 02:24 Micro: Microbiology 11/11/22 11:17 Blood Culture - Preliminary Blood SPECIMEN COLLECTED 11/11/22 11:15 Blood Culture - Preliminary Blood SPECIMEN COLLECTED 11/09/22 18:50 Urine Culture - Final Urine,Clean Catch 11/10/22 17:50 Bacterial Antigens - Final Urine Kidney A&P Assessment and plan (1) Troponin level elevated: (2) Acute renal failure: (3) Septic shock: (4) Lactic acidosis: (5) Acute encephalopathy: (6) Urinary tract infection: Plan Significant troponin elevation likely secondary to demand ischemia however CAD cannot be ruled out. Continue heparin drip. Patient is being transferred today. At some point he will need ischemic work-up once stable. He is febrile right now. Thank you for involving us with care of this patient . Please call with questions Attestations Medical Necessity Statement*: Care expected to cross 2 midnights. Coding Level of Care Code Acute Code for g Fwd Diagnoses Troponin level elevated R77.8 Acute renal failure N17.9 Septic shock A41.9; R65.21 Lactic acidosis E87.20 Acute encephalopathy G93.40 Urinary tract infection N39.0
[2022-11-12] MEDS: micafungin 100 MG in sodium chloride 0.9% (plus) 100 ML IV (09:14)
[2022-11-12] MEDS: enoxaparin 100 mg/mL Syringe 90 MG SUBCUT (09:15)
[2022-11-12] MEDS: cefTRIAXone 1,000 MG in sodium chloride 0.9% (plus) 50 ML 100 MG IV (09:15)
[2022-11-12] MEDS: aspirin 81 mg EC Tablet PO (09:15)
--- NOTE | 2022-11-12 11:23 | P.TS_ITS ---
Transfer Summary Providers Date of Admission: 11/09/22 17:44 Date of Discharge/Transfer: 11/12/22 Attending Provider at Admission: Fernando Valdez MD Attending Provider at Transfer: Fernando Valdez MD Transfer Plans: Anticipated date of transfer: 11/12/22 . Diagnoses at Discharge Discharge Diagnosis (1) Troponin level elevated: Status: Acute (2) Acute renal failure: Status: Acute (3) Septic shock: Status: Acute (4) Lactic acidosis: Status: Acute (5) Acute encephalopathy: Status: Acute (6) Urinary tract infection: Status: Acute Reason for Visit Reason for Visit diff breathing. [facility] Hospital Course Hospital Course Uvaldo Barragan is a 72 year old male with past medical history of hypertension, BPH, who presents to [facility] due to nausea, vomiting, low blood pressures elevated heart rates, lightheadedness, presyncopal episode, increased confusion.? Currently patient is alert to person, to place, not to time, he can follow commands, he is only complaint is severe left shoulder pain, he tells me that he has had left shoulder pain for some period of time, but recently the pain has worsened.? Patient's is at bedside most the history was provided by patient's , she tells me that he is really in good state of health, no significant health scares, no significant hospitalizations, no underlying cardiovascular history of strokes he was told he was prediabetic, he has been eating healthy with his , and is lost roughly 20 pounds in the last few months.? Yesterday he was working outside he mowed the grass he was quite active does tell me that he was using his blow torch, and he inhaled some of the noxious fumes, he did not feel well after, but nonetheless was able to get over it, denies any shortness of breath or chest pain at that time.? In the evening time he started to complain of nausea and vomiting and developed 104 fevers, he sleep on separate floors, so he went to bed, in the morning when she went up and checked on him he was confused, he looked pale, diaphoretic, she checked his blood pressure there were low she tells at the top number was low and her heart his heart rates were fast, and he was confused, complained of weakness, both his arms and legs were pale, he did not really complain of shortness of breath that time no chest pain, no nausea overnight, he did have diarrhea overnight he has been vaccinated for COVID, no history of COVID throughout the household, she tells me that he has severe chills in the morning, poor appetite, remained in bed he did try to get up out of bed and slid out of bed and had a presyncopal episode, she does not think he fully passed out.? She called the ambulance in the afternoon, and patient was found to be hypotensive was given fluids, was actually given 5 mg of epi, was placed on 10 L nonrebreather, I examined him while he is getting his CAT scans, looks is tachypneic,, has mottling of bilateral extremities, DP PT pulses diminished, capillary refill greater than 2 seconds, he does look flushed,, I asked him if he was out of the sun yesterday he tells me yes, does report severe chills.? Patient had blood work done, which showed a lactic acid of 8.3, creatinine of 3.1 anion gap 22.1, bicarb of 16, potassium 3.1 no leukocytosis, platelet count 124, baseline troponin 43, initial chest x-ray no acute infiltrates, EKG shows sinus tachycardia, he is received a CT scan abdomen pelvis, Patient was admitted to [facility] for concerns for gram-negative sepsis, UTI, acute pyelonephritis -Over the next 12 hours he required up to 10 on Levophed, he stopped requirements decreased to 4 L, his mentation improved, blood cultures were negative, urine cultures are negative he is afebrile -However him and his family were very concerned about a rash that was starting to develop on the left side of his neck extending to the left chest, extending to left occiput -Given how he continues to look ill, he had an extensive work-up including imaging and consultation with physicians -No significant radiographic evidence of discitis, vertebral osteomyelitis, epidural abscess, parapharyngeal abscess, retropharyngeal abscess -However the following was initially that this rash was possibly cellulitis -Thinking back I think this is likely red man syndrome, thus vancomycin has been discontinued -Patient's blood cultures remain negative, urine cultures remain negative, Pro- Joseph and CRP are trending downwards initially Pro-Joseph was over 100 CRP over 200 -His lactic acid initially started at 8, now trending down to 3 -During his hospitalization there was concerns for NSTEMI with underlying CAD as his troponins went as high as 200, he was managed with heparin drip cardiac echo showed EF of 45 to 50% diffuse hypokinesia cardio was consulted, medical management eventually he will need a coronary angiogram at some point -Patient did develop DIC during his hospitalization likely secondary to sepsis, septic shock, gram-negative's sepsis -However his blood cultures remain on remarkable urine cultures unremarkable -Given 8 hours after his admission he started developing fevers, I repeated a CAT scan of the chest abdomen and pelvis -He does definitely have evidence radiographically of a UTI, he has induration of his left kidney which could represent radiographic evidence of pyelonephritis, no significant radiographic evidence of prostatitis or prostatic abscess nonetheless he was on meropenem -I stop meropenem due to concerns of drug fevers, switched him to Rocephin -He definitely does have aspiration pneumonia and lungs, with a right upper lobe area representing likely aspiration pneumonia -He is on Rocephin, aspiration precautions, n.p.o. -He is acute renal failure is improving, likely secondary to sepsis, currently 1.4 -However given his persistent fevers, the concern was does he have an underlying meningitis -I think bacterial meningitis is very unlikely as he has been on vancomycin meropenem since admission which had stopped, he is 0 bacterial antigens are negative his blood cultures were negative, and he is GI Kernig's and Brudzinski's sign negative no headache no blurry vision no neck pain -Possibly viral meningitis so he started acyclovir yesterday placed on isolation, -We will thought it could be like a viral meningitis such as West Nile ence phalitis -It could also be of fungemia such as fungal meningitis, 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 Certainly possible, tick panel pending early Adriana panel pending, -I do not think this is tularemia nor does the rash look like tularemia -My thought is he truly did have a UTI with pyelonephritis then developed red man syndrome, and now is suffering from drug fevers -However I am still concerned for the possibility of meningitis -However LP cannot be performed given his INR 1.4, and his platelet count 26,000 -Repeat INR tomorrow, repeat platelet count tomorrow given him 2 units of platelets -His thrombocytopenia could be tickborne, could be sepsis, could be platelet, could be ehrliciosis, HIT is certainly a possibility I stopped the heparin drip which he was on for the NSTEMI switched him to Lovenox -HIT panel pending, peripheral smear pending -In terms of his NSTEMI could be underlying CAD worsening from his sepsis team needs to have an angiogram at some point, he is medically managed currently -He did have acute renal failure on admission, creatinine as high as 3.4, improved to 1.4 good urine output likely secondary to sepsis -He had DIC on admission now improving -Currently with his delirium and his CT scan findings concerning for aspiration pneumonia aspiration pneumonia pneumonitis should be kept on aspiration precautions -Patient was transferred to tertiary level center for infectious disease consultation and due to the complexity of his case -I saw him this morning he is alert to person, place, not to time, he does follow commands but is delirious, no agitation he is on 2 L, he is febrile to 101.4, tachycardic likely secondary to fevers, lungs clear to auscultation bilaterally, -If infectious disease at [facility] has any questions, they can reach out to Dr. fernando Valdez, at [facility] would happily willing to help patient and his case Physical Exam Const: COMMON NORMALS: no acute distress and patient oriented x3 Resp: COMMON NORMALS: normal respiratory effort, No retractions, No use of ac cessory muscles and clear to auscultation bilaterally AUSCULTATION: clear to auscultation bilaterally Cardio: COMMON NORMALS: regular rate, regular rhythm, S1 normal heart sound present and S2 normal heart sound present RATE: regular rate RHYTHM: regular rhythm HEART SOUNDS: S1 normal heart sound present and S2 normal heart sound present GI: COMMON NORMALS: Normal to inspection, nondistended, normoactive bowel sounds present and non-tender Extremity: COMMON NORMALS: no pedal edema Neuro: COMMON NORMALS: patient oriented x3 Psych: COMMON NORMALS: mental status grossly normal Urinary Catheter Management: Merlos: Cath Placed During This Visit: yes Reason for Continuing Indwelling Catheter: Accurate Measurement of Urinary Output in Critically Ill Patients Urinary Catheter Date of Insertion: 11/09/22 Urinary Catheter Time of Insertion: 18:54 TS Data Studies Completed and Pending Pending at discharge Category Date Time Status FL guided lumbarpunc dx* [id number] Routine Exams 11/12/22 Ordered ABO/Rh Type Stat Lab 11/11/22 18:40 Results Ammonia AM LABS Lab 11/13/22 04:00 Ordered Aspergillus AG,EIA,Serum Stat Lab 11/11/22 12:10 Received Blood Culture Stat Lab 11/09/22 16:07 Results Blood Culture Stat Lab 11/11/22 11:17 Results C Reactive Protein AM LABS Lab 11/13/22 04:00 Ordered C Reactive Protein AM LABS Lab 11/14/22 04:00 Ordered CSF Analysis + Cell Count Stat Lab 11/11/22 13:00 Uncollected CSF Culture & Gram Stain Stat Lab 11/11/22 13:00 Uncollected CSF Culture Stat Lab 11/11/22 13:00 Uncollected Complete Crossmatch Stat Lab 11/11/22 18:40 Results Cryptococcal Antigen (CSF) Stat Lab 11/11/22 13:00 Uncollected Cyto Order Verification Routine Lab 11/11/22 13:00 Ordered D Dimer AM LABS Lab 11/13/22 04:00 Ordered DIC Profile AM LABS Lab 11/13/22 04:00 Ordered DIC Profile AM LABS Lab 11/14/22 04:00 Ordered Ehrlichia Chaffeensis IGG,IGM Routine Lab 11/12/22 08:05 Received Ehrlichia Chaffeensis PCR Routine Lab 11/12/22 07:58 Received Ethylene Glycol Routine Lab 11/11/22 10:55 Received Fibrinogen AM LABS Lab 11/13/22 04:00 Ordered Fibrinogen AM LABS Lab 11/14/22 04:00 Ordered Francisella Tularensis DA Routine Lab 11/12/22 07:58 Received Fungitell Glucan Assay (Blood) Routine Lab 11/12/22 07:58 Received Glucose CSF Routine Lab 11/11/22 13:00 Uncollected Heparin Induced Thrombocytopen Stat Lab 11/11/22 17:18 Received Herpes Simplex 1&2 IgG AB Routine Lab 11/10/22 15:32 Ordered Herpes Simplex 1/2 AB w/Titer Routine Lab 11/10/22 15:32 Ordered Lactate (Lactic Acid level) AM LABS Lab 11/13/22 04:00 Ordered Lactate (Lactic Acid level) AM LABS Lab 11/13/22 04:00 Ordered Lactate (Lactic Acid level) AM LABS Lab 11/14/22 04:00 Ordered Lymes Disease Antibodies CSF Stat Lab 11/11/22 13:00 Ordered Miscellaneous Test Routine Lab 11/11/22 08:57 Received Mycoplasma/Ureaplasma Panel. Routine Lab 11/10/22 08:57 Received NT Pro B Type Natriuretic Pept QAM Lab 11/13/22 06:00 Ordered Osmolality Urine Stat Lab 11/11/22 08:57 Received Platelets Leuko-Reduced Stat Lab 11/11/22 18:40 Results Procalcitonin AM LABS Lab 11/13/22 04:00 Ordered Procalcitonin AM LABS Lab 11/14/22 04:00 Ordered Sputum Culture and Gram Stain Stat Lab 11/09/22 18:32 Uncollected Allisonia Enceph.Virus IFA CSF Stat Lab 11/11/22 13:00 Ordered Tick Panel Stat Lab 11/10/22 19:40 Received Total Protein CSF Routine Lab 11/11/22 13:00 Uncollected Urine Culture Stat Lab 11/11/22 08:57 Received Viral Respiratory,Rapid Cultur Stat Lab 11/11/22 12:10 Uncollected West Nile Virus AB Panel,CSF Stat Lab 11/11/22 13:00 Ordered Labs from last 24 hours 11/12/22 11/12/22 11/12/22 05:45 02:24 02:24 WBC RBC Hgb Hct MCV MCH MCHC RDW Plt Count MPV Neut % (Auto) Lymph % (Auto) [place] % (Auto) Eos % (Auto) Baso % (Auto) Neut # (Auto) Lymph # (Auto) [place] # (Auto) Eos # (Auto) Baso # (Auto) Nucleated RBC % (auto) Nucleated RBCs # Peripher Smr Path Cons Sent for review Haptoglobin Heparin Require Pat PT INR APTT Fibrinogen Fibrin Degrad Products D-Dimer Specimen Type Arterial Sample Site Brachial, right ABG pH 7.52 H ABG pCO2 31.8 L ABG pO2 63.7 L ABG HCO3 25.8 ABG O2 Saturation ABG Base Excess 3.5 H Michael Test Pos A-a O2 Gradient Hematocrit 47.0 Hgb O2 Saturation Carboxyhemoglobin Methemoglobin Total Hemoglobin Sodium Potassium Glucose Ionized Calcium O2 Delivery Device Nc O2 Liters/Min 2.0 FiO2 Transmission Calibration Engineer ID Jose R Chloride Carbon Dioxide Anion Gap BUN Creatinine GFR Calculation Calculated Osmolality Lactic Acid Lactic Acid (Sepsis) Lactate Calcium Phosphorus Magnesium Ferritin Total Bilirubin AST ALT Alkaline Phosphatase Ammonia 20 Lactate Dehydrogenase C-Reactive Protein NT-Pro-B Natriuret Pep Total Protein Albumin Globulin Amylase Lipase Procalcitonin Urine Osmolality Nasal Influ A H1 2008 PCR Heparin-induced Ab UF Heparin Low Dose 1 UF Heparin Low Dose 2 UF Heparin High Dose DARYL Unfract Heparin Adenovirus (PCR) C. pneumoniae DNA (PCR) Coronavirus 229E (PCR) Ehrlichia IgM Antibody E.chaffeensis DNA (PCR) E. chaffeensis Interp E. chaffeensis Comment F. tularensis Ab Human Metapneumovir PCR Influenza A (H1) PCR Influenza A (H3) PCR Influenza Type A (PCR) Influenza Type B (PCR) M. pneumoniae (PCR) Parainfluenza 1 (PCR) Parainfluenza 2 (PCR) Parainfluenza 3 (PCR) Parainfluenza 4 (PCR) A. galactomannan Ag EIA A. galactomannan Ag Idx RSV Type A (PCR) RSV Type B (PCR) Entero/Rhino (PCR) SARS-CoV-2 (PCR) Beta-(1,3)-D-Glucan B-(1,3)-D-Glucan Intrp Blood Type Rho(D) Type 11/12/22 11/12/22 11/12/22 02:24 02:24 02:24 WBC 16.9 H RBC 4.12 Hgb 12.1 Hct 34.5 L MCV 83.7 MCH 29.4 MCHC 35.1 RDW 13.8 Plt Count 26 L* D MPV 13.3 H Neut % (Auto) 92.1 Lymph % (Auto) 5.1 [place] % (Auto) 1.5 Eos % (Auto) 0.1 Baso % (Auto) 0.9 Neut # (Auto) 15.56 H Lymph # (Auto) 0.9 [place] # (Auto) 0.3 Eos # (Auto) 0.0 Baso # (Auto) 0.2 H Nucleated RBC % (auto) 0 Nucleated RBCs # 0.0 Peripher Smr Path Cons Haptoglobin Heparin Require Pat PT INR APTT Fibrinogen Fibrin Degrad Products D-Dimer Specimen Type Sample Site ABG pH ABG pCO2 ABG pO2 ABG HCO3 ABG O2 Saturation ABG Base Excess Michael Test A-a O2 Gradient Hematocrit Hgb O2 Saturation Carboxyhemoglobin Methemoglobin Total Hemoglobin Sodium 147 H Potassium 3.0 L Glucose 83 Ionized Calcium O2 Delivery Device O2 Liters/Min FiO2 Transmission Calibration Engineer ID Chloride 111 H Carbon Dioxide 23 Anion Gap 16.0 BUN 38 H Creatinine 1.4 H GFR Calculation Not Reportable Calculated Osmolality 312 H Lactic Acid Lactic Acid (Sepsis) Lactate 3.7 H Calcium 6.8 L Phosphorus 1.7 L Magnesium 1.9 Ferritin Total Bilirubin 1.5 H AST 71 H ALT 23 Alkaline Phosphatase 65 Ammonia Lactate Dehydrogenase C-Reactive Protein 245.8 H NT-Pro-B Natriuret Pep 33806 H Total Protein 5.0 L Albumin 3.3 L Globulin 1.7 Amylase Lipase Procalcitonin 22.30 H Urine Osmolality Nasal Influ A H1 2008 PCR Heparin-induced Ab UF Heparin Low Dose 1 UF Heparin Low Dose 2 UF Heparin High Dose DARYL Unfract Heparin Adenovirus (PCR) C. pneumoniae DNA (PCR) Coronavirus 229E (PCR) Ehrlichia IgM Antibody E.chaffeensis DNA (PCR) E. chaffeensis Interp E. chaffeensis Comment F. tularensis Ab Human Metapneumovir PCR Influenza A (H1) PCR Influenza A (H3) PCR Influenza Type A (PCR) Influenza Type B (PCR) M. pneumoniae (PCR) Parainfluenza 1 (PCR) Parainfluenza 2 (PCR) Parainfluenza 3 (PCR) Parainfluenza 4 (PCR) A. galactomannan Ag EIA A. galactomannan Ag Idx RSV Type A (PCR) RSV Type B (PCR) Entero/Rhino (PCR) SARS-CoV-2 (PCR) Beta-(1,3)-D-Glucan B-(1,3)-D-Glucan Intrp Blood Type Rho(D) Type 11/12/22 11/11/22 11/11/22 02:24 18:40 17:18 WBC RBC Hgb Hct MCV MCH MCHC RDW Plt Count MPV Neut % (Auto) Lymph % (Auto) [place] % (Auto) Eos % (Auto) Baso % (Auto) Neut # (Auto) Lymph # (Auto) [place] # (Auto) Eos # (Auto) Baso # (Auto) Nucleated RBC % (auto) Nucleated RBCs # Peripher Smr Path Cons Haptoglobin Heparin Require Pat Pending PT 18.20 H INR 1.46 H APTT 60.7 H Fibrinogen 526 H Fibrin Degrad Products Pos, >=40 H D-Dimer 13.17 H Specimen Type Sample Site ABG pH ABG pCO2 ABG pO2 ABG HCO3 ABG O2 Saturation ABG Base Excess Michael Test A-a O2 Gradient Hematocrit Hgb O2 Saturation Carboxyhemoglobin Methemoglobin Total Hemoglobin Sodium Potassium Glucose Ionized Calcium O2 Delivery Device O2 Liters/Min FiO2 Transmission Calibration Engineer ID Chloride Carbon Dioxide Anion Gap BUN Creatinine GFR Calculation Calculated Osmolality Lactic Acid Lactic Acid (Sepsis) Lactate Calcium Phosphorus Magnesium Ferritin Total Bilirubin AST ALT Alkaline Phosphatase Ammonia Lactate Dehydrogenase C-Reactive Protein NT-Pro-B Natriuret Pep Total Protein Albumin Globulin Amylase Lipase Procalcitonin Urine Osmolality Nasal Influ A H1 2008 PCR Heparin-induced Ab Pending UF Heparin Low Dose 1 Pending UF Heparin Low Dose 2 Pending UF Heparin High Dose Pending DARYL Unfract Heparin Pending Adenovirus (PCR) C. pneumoniae DNA (PCR) Coronavirus 229E (PCR) Ehrlichia IgM Antibody E.chaffeensis DNA (PCR) E. chaffeensis Interp E. chaffeensis Comment F. tularensis Ab Human Metapneumovir PCR Influenza A (H1) PCR Influenza A (H3) PCR Influenza Type A (PCR) Influenza Type B (PCR) M. pneumoniae (PCR) Parainfluenza 1 (PCR) Parainfluenza 2 (PCR) Parainfluenza 3 (PCR) Parainfluenza 4 (PCR) A. galactomannan Ag EIA A. galactomannan Ag Idx RSV Type A (PCR) RSV Type B (PCR) Entero/Rhino (PCR) SARS-CoV-2 (PCR) Beta-(1,3)-D-Glucan B-(1,3)-D-Glucan Intrp Blood Type O Positive Rho(D) Type Positive 11/11/22 11/11/22 11/11/22 17:18 17:18 17:18 WBC 20.5 H RBC 4.25 Hgb 12.7 Hct 36.0 L MCV 84.7 MCH 29.9 MCHC 35.3 RDW 14.0 Plt Count 43 L D MPV 11.9 H Neut % (Auto) Lymph % (Auto) Not Reportable [place] % (Auto) Not Reportable Eos % (Auto) Baso % (Auto) Neut # (Auto) Lymph # (Auto) Not Reportable [place] # (Auto) Not Reportable Eos # (Auto) Baso # (Auto) Nucleated RBC % (auto) Nucleated RBCs # Peripher Smr Path Cons Haptoglobin Heparin Require Pat PT 18.10 H INR 1.45 H APTT Fibrinogen Fibrin Degrad Products D-Dimer Specimen Type Sample Site ABG pH ABG pCO2 ABG pO2 ABG HCO3 ABG O2 Saturation ABG Base Excess Michael Test A-a O2 Gradient Hematocrit Hgb O2 Saturation Carboxyhemoglobin Methemoglobin Total Hemoglobin Sodium 143 Potassium 2.8 L* D Glucose 168 H Ionized Calcium O2 Delivery Device O2 Liters/Min FiO2 Transmission Calibration Engineer ID Chloride 104 Carbon Dioxide 24 Anion Gap 17.8 BUN 34 H Creatinine 1.4 H GFR Calculation Not Reportable Calculated Osmolality 307 H Lactic Acid Lactic Acid (Sepsis) Lactate Calcium 7.0 L Phosphorus Magnesium Ferritin Total Bilirubin 1.3 H AST 94 H ALT 27 Alkaline Phosphatase 59 Ammonia Lactate Dehydrogenase C-Reactive Protein NT-Pro-B Natriuret Pep Total Protein 5.2 L Albumin 3.3 L Globulin 1.9 Amylase Lipase Procalcitonin Urine Osmolality Nasal Influ A H1 2008 PCR Heparin-induced Ab UF Heparin Low Dose 1 UF Heparin Low Dose 2 UF Heparin High Dose DARYL Unfract Heparin Adenovirus (PCR) C. pneumoniae DNA (PCR) Coronavirus 229E (PCR) Ehrlichia IgM Antibody E.chaffeensis DNA (PCR) E. chaffeensis Interp E. chaffeensis Comment F. tularensis Ab Human Metapneumovir PCR Influenza A (H1) PCR Influenza A (H3) PCR Influenza Type A (PCR) Influenza Type B (PCR) M. pneumoniae (PCR) Parainfluenza 1 (PCR) Parainfluenza 2 (PCR) Parainfluenza 3 (PCR) Parainfluenza 4 (PCR) A. galactomannan Ag EIA A. galactomannan Ag Idx RSV Type A (PCR) RSV Type B (PCR) Entero/Rhino (PCR) SARS-CoV-2 (PCR) Beta-(1,3)-D-Glucan B-(1,3)-D-Glucan Intrp Blood Type Rho(D) Type 11/11/22 11/11/22 11/11/22 17:18 13:41 13:17 WBC RBC Hgb Hct MCV MCH MCHC RDW Plt Count MPV Neut % (Auto) Lymph % (Auto) [place] % (Auto) Eos % (Auto) Baso % (Auto) Neut # (Auto) Lymph # (Auto) [place] # (Auto) Eos # (Auto) Baso # (Auto) Nucleated RBC % (auto) Nucleated RBCs # Peripher Smr Path Cons Haptoglobin Heparin Require Pat PT INR APTT 59.9 H Fibrinogen Fibrin Degrad Products D-Dimer Specimen Type Sample Site ABG pH ABG pCO2 ABG pO2 ABG HCO3 ABG O2 Saturation ABG Base Excess Michael Test A-a O2 Gradient Hematocrit Hgb O2 Saturation Carboxyhemoglobin Methemoglobin Total Hemoglobin Sodium Potassium Glucose Ionized Calcium O2 Delivery Device O2 Liters/Min FiO2 Transmission Calibration Engineer ID Chloride Carbon Dioxide Anion Gap BUN Creatinine GFR Calculation Calculated Osmolality Lactic Acid Lactic Acid (Sepsis) 5.3 H* Lactate Calcium Phosphorus Magnesium Ferritin Total Bilirubin AST ALT Alkaline Phosphatase Ammonia Lactate Dehydrogenase C-Reactive Protein NT-Pro-B Natriuret Pep Total Protein Albumin Globulin Amylase Lipase Procalcitonin Urine Osmolality Nasal Influ A H1 2008 PCR Not detected Heparin-induced Ab UF Heparin Low Dose 1 UF Heparin Low Dose 2 UF Heparin High Dose DARYL Unfract Heparin Adenovirus (PCR) Not detected C. pneumoniae DNA (PCR) Not detected Coronavirus 229E (PCR) Not detected Ehrlichia IgM Antibody E.chaffeensis DNA (PCR) E. chaffeensis Interp E. chaffeensis Comment F. tularensis Ab Human Metapneumovir PCR Not detected Influenza A (H1) PCR Not detected Influenza A (H3) PCR Not detected Influenza Type A (PCR) Not detected Influenza Type B (PCR) Not detected M. pneumoniae (PCR) Not detected Parainfluenza 1 (PCR) Not detected Parainfluenza 2 (PCR) Not detected Parainfluenza 3 (PCR) Not detected Parainfluenza 4 (PCR) Not detected A. galactomannan Ag EIA A. galactomannan Ag Idx RSV Type A (PCR) Not detected RSV Type B (PCR) Not detected Entero/Rhino (PCR) Not detected SARS-CoV-2 (PCR) Not detected Beta-(1,3)-D-Glucan B-(1,3)-D-Glucan Intrp Blood Type Rho(D) Type 11/11/22 11/11/22 11/11/22 11:32 10:55 10:55 WBC RBC Hgb Hct MCV MCH MCHC RDW Plt Count MPV Neut % (Auto) Lymph % (Auto) [place] % (Auto) Eos % (Auto) Baso % (Auto) Neut # (Auto) Lymph # (Auto) [place] # (Auto) Eos # (Auto) Baso # (Auto) Nucleated RBC % (auto) Nucleated RBCs # Peripher Smr Path Cons Haptoglobin Heparin Require Pat PT INR APTT 72.2 H Fibrinogen Fibrin Degrad Products D-Dimer Specimen Type Arterial Sample Site Brachial, left ABG pH 7.48 H ABG pCO2 25.2 L ABG pO2 65.8 L ABG HCO3 18.7 L ABG O2 Saturation 95.3 ABG Base Excess -3.3 L Michael Test N/a A-a O2 Gradient 13.1 H Hematocrit 39.3 L Hgb O2 Saturation 94.0 L Carboxyhemoglobin 0.8 Methemoglobin 0.6 Total Hemoglobin 12.8 L Sodium 144.0 H Potassium 3.3 L Glucose 90.0 Ionized Calcium 0.9 L O2 Delivery Device Nc O2 Liters/Min 2.0 FiO2 28.0 Transmission Calibration Engineer ID Monro Chloride Carbon Dioxide Anion Gap BUN Creatinine GFR Calculation Calculated Osmolality Lactic Acid 5.5 H* Lactic Acid (Sepsis) Lactate Calcium Phosphorus Magnesium Ferritin Total Bilirubin AST ALT Alkaline Phosphatase Ammonia Lactate Dehydrogenase C-Reactive Protein NT-Pro-B Natriuret Pep Total Protein Albumin Globulin Amylase Lipase Procalcitonin Urine Osmolality Nasal Influ A H1 2008 PCR Heparin-induced Ab UF Heparin Low Dose 1 UF Heparin Low Dose 2 UF Heparin High Dose DARYL Unfract Heparin Adenovirus (PCR) C. pneumoniae DNA (PCR) Coronavirus 229E (PCR) Ehrlichia IgM Antibody E.chaffeensis DNA (PCR) E. chaffeensis Interp E. chaffeensis Comment F. tularensis Ab Human Metapneumovir PCR Influenza A (H1) PCR Influenza A (H3) PCR Influenza Type A (PCR) Influenza Type B (PCR) M. pneumoniae (PCR) Parainfluenza 1 (PCR) Parainfluenza 2 (PCR) Parainfluenza 3 (PCR) Parainfluenza 4 (PCR) A. galactomannan Ag EIA A. galactomannan Ag Idx RSV Type A (PCR) RSV Type B (PCR) Entero/Rhino (PCR) SARS-CoV-2 (PCR) Beta-(1,3)-D-Glucan B-(1,3)-D-Glucan Intrp Blood Type Rho(D) Type 11/11/22 11/11/22 11/11/22 08:57 01:33 01:33 WBC RBC Hgb Hct MCV MCH MCHC RDW Plt Count MPV Neut % (Auto) Lymph % (Auto) [place] % (Auto) Eos % (Auto) Baso % (Auto) Neut # (Auto) Lymph # (Auto) [place] # (Auto) Eos # (Auto) Baso # (Auto) Nucleated RBC % (auto) Nucleated RBCs # Peripher Smr Path Cons Haptoglobin 179.0 Heparin Require Pat PT INR APTT Fibrinogen Fibrin Degrad Products D-Dimer Specimen Type Sample Site ABG pH ABG pCO2 ABG pO2 ABG HCO3 ABG O2 Saturation ABG Base Excess Michael Test A-a O2 Gradient Hematocrit Hgb O2 Saturation Carboxyhemoglobin Methemoglobin Total Hemoglobin Sodium Potassium Glucose Ionized Calcium O2 Delivery Device O2 Liters/Min FiO2 Transmission Calibration Engineer ID Chloride Carbon Dioxide Anion Gap BUN Creatinine GFR Calculation Calculated Osmolality Lactic Acid Lactic Acid (Sepsis) Lactate Calcium Phosphorus Magnesium Ferritin 1139 H Total Bilirubin AST ALT Alkaline Phosphatase Ammonia Lactate Dehydrogenase 359 H C-Reactive Protein NT-Pro-B Natriuret Pep Total Protein Albumin Globulin Amylase 178 H Lipase 7 L Procalcitonin Urine Osmolality Pending Nasal Influ A H1 2008 PCR Heparin-induced Ab UF Heparin Low Dose 1 UF Heparin Low Dose 2 UF Heparin High Dose DARYL Unfract Heparin Adenovirus (PCR) C. pneumoniae DNA (PCR) Coronavirus 229E (PCR) [place]lich[place] IgM Antibody E.chaffeensis DNA (PCR) E. chaffeensis Interp E. chaffeensis Comment F. tularensis Ab Human Metapneumovir PCR Influenza A (H1) PCR Influenza A (H3) PCR Influenza Type A (PCR) Influenza Type B (PCR) M. pneumoniae (PCR) Parainfluenza 1 (PCR) Parainfluenza 2 (PCR) Parainfluenza 3 (PCR) Parainfluenza 4 (PCR) A. galactomannan Ag EIA A. galactomannan Ag Idx RSV Type A (PCR) RSV Type B (PCR) Entero/Rhino (PCR) SARS-CoV-2 (PCR) Beta-(1,3)-D-Glucan B-(1,3)-D-Glucan Intrp Blood Type Rho(D) Type 11/11/22 11/10/22 11/10/22 01:33 22:48 19:40 WBC RBC Hgb Hct MCV MCH MCHC RDW Plt Count MPV Neut % (Auto) Lymph % (Auto) [place] % (Auto) Eos % (Auto) Baso % (Auto) Neut # (Auto) Lymph # (Auto) [place] # (Auto) Eos # (Auto) Baso # (Auto) Nucleated RBC % (auto) Nucleated RBCs # Peripher Smr Path Cons Sent for review Haptoglobin Heparin Require Pat PT INR APTT Fibrinogen Fibrin Degrad Products D-Dimer Specimen Type Sample Site Art ABG pH ABG pCO2 ABG pO2 ABG HCO3 ABG O2 Saturation ABG Base Excess Michael Test A-a O2 Gradient Hematocrit Hgb O2 Saturation Carboxyhemoglobin Methemoglobin Total Hemoglobin Sodium Potassium Glucose Ionized Calcium O2 Delivery Device N/a O2 Liters/Min FiO2 Transmission Calibration Engineer ID Bisje Chloride Carbon Dioxide Anion Gap BUN Creatinine GFR Calculation Calculated Osmolality Lactic Acid Lactic Acid (Sepsis) Lactate Calcium Phosphorus Magnesium Ferritin Total Bilirubin AST ALT Alkaline Phosphatase Ammonia Lactate Dehydrogenase C-Reactive Protein NT-Pro-B Natriuret Pep Total Protein Albumin Globulin Amylase Lipase Procalcitonin Urine Osmolality Nasal Influ A H1 2008 PCR Heparin-induced Ab UF Heparin Low Dose 1 UF Heparin Low Dose 2 UF Heparin High Dose DARYL Unfract Heparin Adenovirus (PCR) C. pneumoniae DNA (PCR) Coronavirus 229E (PCR) [place] IgM Antibody E.chaffeensis DNA (PCR) E. chaffeensis Interp E. chaffeensis Comment F. tularensis Ab Human Metapneumovir PCR Influenza A (H1) PCR Influenza A (H3) PCR Influenza Type A (PCR) Influenza Type B (PCR) M. pneumoniae (PCR) Parainfluenza 1 (PCR) Parainfluenza 2 (PCR) Parainfluenza 3 (PCR) Parainfluenza 4 (PCR) A. galactomannan Ag EIA Pending A. galactomannan Ag Idx Pending RSV Type A (PCR) RSV Type B (PCR) Entero/Rhino (PCR) SARS-CoV-2 (PCR) Beta-(1,3)-D-Glucan B-(1,3)-D-Glucan Intrp Blood Type Rho(D) Type 11/09/22 11/09/22 11/09/22 16:00 16:00 02:24 WBC RBC Hgb Hct MCV MCH MCHC RDW Plt Count MPV Neut % (Auto) Lymph % (Auto) [place] % (Auto) Eos % (Auto) Baso % (Auto) Neut # (Auto) Lymph # (Auto) [place] # (Auto) Eos # (Auto) Baso # (Auto) Nucleated RBC % (auto) Nucleated RBCs # Peripher Smr Path Cons Haptoglobin Heparin Require Pat PT INR APTT Fibrinogen Fibrin Degrad Products D-Dimer Specimen Type Sample Site ABG pH ABG pCO2 ABG pO2 ABG HCO3 ABG O2 Saturation ABG Base Excess Michael Test A-a O2 Gradient Hematocrit Hgb O2 Saturation Carboxyhemoglobin Methemoglobin Total Hemoglobin Sodium Potassium Glucose Ionized Calcium O2 Delivery Device O2 Liters/Min FiO2 Transmission Calibration Engineer ID Chloride Carbon Dioxide Anion Gap BUN Creatinine GFR Calculation Calculated Osmolality Lactic Acid Lactic Acid (Sepsis) Lactate Calcium Phosphorus Magnesium Ferritin Total Bilirubin AST ALT Alkaline Phosphatase Ammonia Lactate Dehydrogenase C-Reactive Protein NT-Pro-B Natriuret Pep Total Protein Albumin Globulin Amylase Lipase Procalcitonin Urine Osmolality Nasal Influ A H1 2008 PCR Heparin-induced Ab UF Heparin Low Dose 1 UF Heparin Low Dose 2 UF Heparin High Dose DARYL Unfract Heparin Adenovirus (PCR) C. pneumoniae DNA (PCR) Coronavirus 229E (PCR) [place] IgM Antibody Pending E.chaffeensis DNA (PCR) Pending E. chaffeensis Interp Pending E. chaffeensis Comment Pending F. tularensis Ab Pending Human Metapneumovir PCR Influenza A (H1) PCR Influenza A (H3) PCR Influenza Type A (PCR) Influenza Type B (PCR) M. pneumoniae (PCR) Parainfluenza 1 (PCR) Parainfluenza 2 (PCR) Parainfluenza 3 (PCR) Parainfluenza 4 (PCR) A. galactomannan Ag EIA A. galactomannan Ag Idx RSV Type A (PCR) RSV Type B (PCR) Entero/Rhino (PCR) SARS-CoV-2 (PCR) Beta-(1,3)-D-Glucan Pending B-(1,3)-D-Glucan Intrp Pending Blood Type Rho(D) Type Completed Studies During Hospitalization Category Date Time Status CT angio chest w abd pel w con Stat Cat Scan 11/09/22 16:[address] chest abdomen pelvis [[place] [id number] Cat Scan 11/11/22 12:09 Completed ] Stat CT head wo con* [id number] Stat Cat Scan 11/09/22 16:[address] head wo con* [id number] Stat Cat Scan 11/11/22 12:[address] neck wo con [id number] Routine Cat Scan 11/10/22 08:[address] shoulder LT wo con* [id number] Stat Cat Scan 11/10/22 08:56 Completed XR chest 1V portable [id number] QAM Exams 11/12/22 06:00 Completed XR chest 1V portable [id number] Routine Exams 11/10/22 07:00 Completed XR chest 1V portable [id number] Routine Exams 11/11/22 07:00 Completed XR chest 1V portable [id number] Stat Exams 11/09/22 15:50 Completed XR chest 1V portable [id number] Stat Exams 11/09/22 20:36 Completed XR chest 1V portable [id number] Stat Exams 11/10/22 22:46 Completed XR chest 1V portable [id number] Stat Exams 11/11/22 19:32 Completed MR cervical spin wo con* [id number] Stat MRI 11/10/22 13:20 Completed MR neck wo con [[place] [id number]] Routine MRI 11/10/22 13:20 [place] [id number] Stat Ultrasound 11/09/22 18:01 Completed CV. echo complete* [id number] Stat Ultrasound 11/10/22 18:01 Completed US gall bladder [id number] Routine Ultrasound 11/09/22 19:51 Completed US renal BI* [id number] Stat Ultrasound 11/10/22 08:05 Completed US soft tissue/extremity [id number] Stat Ultrasound 11/10/22 00:08 Completed US venous duplex upper extremity bilater [CV venous Ultrasound 11/10/22 09:06 [place] [id number]] Routine Laboratory Last Values WBC 16.9 10^3/uL (4.0-10.0) H 11/12/22 02:24 RBC 4.12 10^6/uL (4.1-5.3) 11/12/22 02:24 Hgb 12.1 g/dL (11.7-16.6) 11/12/22 02:24 Hct 34.5 % (42.0-52.0) L 11/12/22 02:24 MCV 83.7 fl (80-94) 11/12/22 02:24 MCH 29.4 pg (28.0-34.0) 11/12/22 02:24 MCHC 35.1 g/dL (30.0-36.0) 11/12/22 02:24 RDW 13.8 % (12.1-15.1) 11/12/22 02:24 Plt Count 26 10^3/cmm (130-400) L* D 11/12/22 02:24 MPV 13.3 fL (7.4-10.4) H 11/12/22 02:24 Neut % (Auto) 92.1 % 11/12/22 02:24 Lymph % (Auto) 5.1 % 11/12/22 02:24 [place] % (Auto) 1.5 % 11/12/22 02:24 Eos % (Auto) 0.1 % 11/12/22 02:24 Baso % (Auto) 0.9 % 11/12/22 02:24 Neut # (Auto) 15.56 10^3/uL (1.8-7.7) H 11/12/22 02:24 Lymph # (Auto) 0.9 10^3/uL (0.8-4.8) 11/12/22 02:24 [place] # (Auto) 0.3 10^3/uL (0.2-0.9) 11/12/22 02:24 Eos # (Auto) 0.0 10^3/uL (0.0-0.8) 11/12/22 02:24 Baso # (Auto) 0.2 10^3/uL (0.0-0.1) H 11/12/22 02:24 Nucleated RBC % (auto) 0 % 11/12/22 02:24 Total Counted 100 (0-100) 11/11/22 01:33 Atypical Lymphs % 0.0 % (0-5) 11/11/22 01:33 Absolute Neutrophils 18.3 10^3/cmm (1.4-6.5) H 11/11/22 01:33 Segmented Neutrophils 79 % 11/11/22 01:33 Abs Segm Neuts (Man) 15.2 10/cmm (1.6-7.1) H 11/11/22 01:33 Band Neutrophils 16.0 % 11/11/22 01:33 Abs Band Neuts (Man) 3.1 10^3/cmm (0.0-1.2) H 11/11/22 01:33 Absolute Lymphocytes 0.4 10^3/cmm (1.2-3.4) L 11/11/22 01:33 Lymphocytes (Manual) 2 % 11/11/22 01:33 Monocytes (Manual) 3.0 % 11/11/22 01:33 Absolute Monocytes 0.6 10^3/cmm (0.1-0.6) 11/11/22 01:33 Eosinophils (Manual) 0 % 11/11/22 01:33 Absolute Eosinophils 0.0 10^3/cmm (0.0-0.7) 11/11/22 01:33 Basophils (Manual) 0.0 % 11/11/22 01:33 Absolute Basophils 0.0 10^3/cmm (0.0-0.2) 11/11/22 01:33 Nucleated RBCs # 0.0 /100WBC 11/12/22 02:24 Platelet Estimate Decreased (Normal) 11/11/22 01:33 Peripher Smr Path Cons Sent for review 11/12/22 02:24 ESR 2 mm/hr (0-10) 11/10/22 12:11 Haptoglobin 179.0 mg/L (30-200) 11/11/22 01:33 PT 18.20 SECONDS (12.1-14.9) H 11/12/22 02:24 INR 1.46 (0.8-1.2) H 11/12/22 02:24 APTT 60.7 SECONDS (23.9-36.7) H 11/12/22 02:24 Fibrinogen 526 mg/dL (174-498) H 11/12/22 02:24 Fibrin Degrad Products Pos, >=40 ug/mL (NEG) H 11/12/22 02:24 D-Dimer 13.17 ug/mIFEU (0-0.59) H 11/12/22 02:24 Specimen Type Arterial 11/12/22 05:45 Sample Site Brachial, right 11/12/22 05:45 ABG pH 7.52 (7.35-7.45) H 11/12/22 05:45 ABG pCO2 31.8 mmHg (35-45) L 11/12/22 05:45 ABG pO2 63.7 mmHg (80.0-100.0) L 11/12/22 05:45 ABG HCO3 25.8 mmol/L (22-26) 11/12/22 05:45 ABG O2 Saturation 95.3 11/11/22 11:32 ABG Base Excess 3.5 mmol/L (-2.0-2.0) H 11/12/22 05:45 Michael Test Pos 11/12/22 05:45 A-a O2 Gradient 13.1 mmHg (5-10) H 11/11/22 11:32 Hematocrit 47.0 % (42-52) 11/12/22 05:45 Hgb O2 Saturation 94.0 % (95-100) L 11/11/22 11:32 Carboxyhemoglobin 0.8 %THgb (0.4-20.1) 11/11/22 11:32 Methemoglobin 0.6 % (0.4-1.5) 11/11/22 11:32 Total Hemoglobin 12.8 g/dL (14-18) L 11/11/22 11:32 Sodium 144.0 mmol/L (131-143) H 11/11/22 11:32 Potassium 3.3 mmol/L (3.5-5.0) L 11/11/22 11:32 Glucose 90.0 mg/dL (70-115) 11/11/22 11:32 Ionized Calcium 0.9 mmol/L (1.1-1.4) L 11/11/22 11:32 O2 Delivery Device Nc 11/12/22 05:45 O2 Liters/Min 2.0 % 11/12/22 05:45 FiO2 28.0 % 11/11/22 11:32 Transmission Calibration Engineer ID Jose R 11/12/22 05:45 Sodium 147 mmol/L (136-145) H 11/12/22 02:24 Potassium 3.0 mmol/L (3.5-5.1) L 11/12/22 02:24 Chloride 111 mmol/L (98-107) H 11/12/22 02:24 Carbon Dioxide 23 mmol/L (22-29) 11/12/22 02:24 Anion Gap 16.0 (5-19) 11/12/22 02:24 BUN 38 mg/dL (8-23) H 11/12/22 02:24 Creatinine 1.4 mg/dL (0.7-1.2) H 11/12/22 02:24 GFR Calculation Not Reportable 11/12/22 02:24 Glucose 83 mg/dL (65-115) 11/12/22 02:24 POC Glucose 91 mg/dL (70-110) 11/10/22 18:01 Estimat Average Glucose 117 11/09/22 20:22 Hemoglobin A1c 5.7 % (4.0-6.0) 11/09/22 20:22 Calculated Osmolality 312 mOsm/kg (285-295) H 11/12/22 02:24 Lactic Acid 5.5 mmol/L (0.5-2.2) H* 11/11/22 10:55 Lactic Acid (Sepsis) 5.3 mmol/L (0.5-2.2) H* 11/11/22 13:17 Lactate 3.7 mmol/L (0.5-2.2) H 11/12/22 02:24 Calcium 6.8 mg/dL (8.5-10.5) L 11/12/22 02:24 Phosphorus 1.7 mg/dL (2.5-4.5) L 11/12/22 02:24 Magnesium 1.9 mg/dL (1.7-2.3) 11/12/22 02:24 Ferritin 1139 ng/mL (30-400) H 11/11/22 01:33 Total Bilirubin 1.5 mg/dL (0.15-1.2) H 11/12/22 02:24 AST 71 U/L (0-40) H 11/12/22 02:24 ALT 23 U/L (0-41) 11/12/22 02:24 Alkaline Phosphatase 65 U/L (40-130) 11/12/22 02:24 Ammonia 20 umol/L (16-60) 11/12/22 02:24 Lactate Dehydrogenase 359 U/L (135-225) H 11/11/22 01:33 Creatine Kinase 1328 U/L (39-308) H* 11/11/22 01:33 Troponin T Baseline 874 ng/L (0-15) H* 11/10/22 12:11 Troponin T 120 Minute 1454 ng/L (0-15) H 11/10/22 13:38 Delta Troponin T 580 ABS# (0-10) H* 11/10/22 13:38 Troponin T Hi Sens 6Hr 2083 ng/L (0-15) H 11/10/22 17:43 Troponin T Hi Sens 6Hr Delta 1209 ng/L (0-12) H* 11/10/22 17:43 C-Reactive Protein 245.8 mg/L (0.0-4.9) H 11/12/22 02:24 NT-Pro-B Natriuret Pep 54748 pg/mL (0-125) H 11/12/22 02:24 Total Protein 5.0 g/dL (6.6-8.7) L 11/12/22 02:24 Albumin 3.3 g/dL (3.5-5.2) L 11/12/22 02:24 Globulin 1.7 g/dL (1.3-4.6) 11/12/22 02:24 Triglycerides 75 mg/dL (0-150) 11/09/22 20:22 Cholesterol 129 mg/dL (0-200) 11/09/22 20:22 LDL Cholesterol, Calc 73 mg/dL (50-129) 11/09/22 20:22 HDL Cholesterol 41 mg/dL (60-100) L 11/09/22 20:22 LDL/HDL Ratio 1.78 RATIO (0.00-3.22) 11/09/22 20:22 Cholesterol/HDL Ratio 3.15 mg/dL (1.0-5.00) 11/09/22 20:22 Amylase 178 U/L (28-100) H 11/11/22 01:33 Lipase 7 U/L (13-60) L 11/11/22 01:33 Procalcitonin 22.30 ng/mL (0-0.5) H 11/12/22 02:24 TSH 2.17 uIU/mL (0.27-4.20) 11/09/22 20:22 Random Cortisol 44.37 ug/dL (2.47-19.5) H 11/09/22 18:14 Urine Color Dark yellow (Yellow) 11/09/22 18:50 Urine Appearance Cloudy (CLEAR) A 11/09/22 18:50 Urine pH 5 (5-7) 11/09/22 18:50 Ur Specific [place] 1.010 (1.005-1.030) 11/09/22 18:50 Urine Protein 2+ (Negative) H 11/09/22 18:50 Urine Glucose (UA) Norm (Normal) 11/09/22 18:50 Urine Ketones 1+ (Negative) H 11/09/22 18:50 Urine Blood 3+ (Negative) H 11/09/22 18:50 Urine Nitrate Negative (Negative) 11/09/22 18:50 Urine Bilirubin 1+ (Negative) H 11/09/22 18:50 Urine Urobilinogen Norm mg/dL (Negative) 11/09/22 18:50 Ur Leukocyte Esterase 2+ (Negative) H 11/09/22 18:50 Urine RBC 5-10 /hpf (0-2) H 11/09/22 18:50 Urine WBC Too numerous to cnt /hpf (0-5) H 11/09/22 18:50 Ur Squamous Epith Cells 5-10 /hpf (0-5) H 11/09/22 18:50 Amorphous Sediment Not Reportable 11/09/22 18:50 Urine Bacteria 2+ /hpf (NONE) H 11/09/22 18:50 Ur Random Urea Nitrogn 807 mg/dL 11/11/22 08:57 Nasal Influ A H1 2008 PCR Not detected (NOT DETECT) 11/11/22 13:41 Urine Opiates Screen Negative ng/mL (Negative) 11/10/22 11:39 Ur Barbiturates Screen Negative ng/mL (Negative) 11/10/22 11:39 Ur Phencyclidine Scrn Negative ng/mL (Negative) 11/10/22 11:39 Ur Amphetamines Screen Negative ng/mL (Negative) 11/10/22 11:39 U Benzodiazepines Scrn Positive ng/mL (Negative) H 11/10/22 11:39 Urine Cocaine Screen Negative ng/mL (Negative) 11/10/22 11:39 U Marijuana (THC) Screen Negative ng/mL (Negative) 11/10/22 11:39 Urine Ethyl Alcohol Cancelled 11/11/22 08:57 Adenovirus (PCR) Not detected (NOT DETECT) 11/11/22 13:41 C. pneumoniae DNA (PCR) Not detected (NOT DETECT) 11/11/22 13:41 Coronavirus 229E (PCR) Not detected (NOT DETECT) 11/11/22 13:41 Hepatitis A IgM Ab Non-reactive (Nonreactive) 11/10/22 13:38 Hep Bs Antigen Non-reactive (Nonreactive) 11/10/22 13:38 Hep B Core IgM Ab Non-reactive (Nonreactive) 11/10/22 13:38 Hepatitis C Antibody Non-reactive (Nonreactive) 11/10/22 13:38 HIV 1&2 Ab & HIV 1 Ag Non-reactive (Non-Reactiv) 11/10/22 13:38 HIV 1&2 Antibody Non-reactive (Non-Reactiv) 11/10/22 13:38 Human Metapneumovir PCR Not detected (NOT DETECT) 11/11/22 13:41 Influenza A (H1) PCR Not detected (NOT DETECT) 11/11/22 13:41 Influenza A (H3) PCR Not detected (NOT DETECT) 11/11/22 13:41 Influenza Type A (PCR) Not detected (NOT DETECT) 11/11/22 13:41 Influenza Type B (PCR) Not detected (NOT DETECT) 11/11/22 13:41 M. pneumoniae (PCR) Not detected (NOT DETECT) 11/11/22 13:41 Parainfluenza 1 (PCR) Not detected (NOT DETECT) 11/11/22 13:41 Parainfluenza 2 (PCR) Not detected (NOT DETECT) 11/11/22 13:41 Parainfluenza 3 (PCR) Not detected (NOT DETECT) 11/11/22 13:41 Parainfluenza 4 (PCR) Not detected (NOT DETECT) 11/11/22 13:41 RSV Type A (PCR) Not detected (NOT DETECT) 11/11/22 13:41 RSV Type B (PCR) Not detected (NOT DETECT) 11/11/22 13:41 Entero/Rhino (PCR) Not detected (NOT DETECT) 11/11/22 13:41 SARS-CoV-2 (PCR) Not detected (NOT DETECT) 11/11/22 13:41 Blood Type O Positive 11/11/22 18:40 Rho(D) Type Positive 11/11/22 18:40 Radiology Impressions Gallbladder Ultrasound 11/09/22 19:51 IMPRESSION: 1. Normal gallbladder. No stones or sludge identified by ultrasound. 2. Negative liver. 3. No bile duct dilatation. Soft Tissue Ultrasound 11/10/22 00:08 IMPRESSION: 1. Moderate amount of edema centered in the supraclavicular region but also extending along the posterior back. There is no focal collection. This edema is also noted on the CT from 11/09/2022. Uncertain etiology. Correlate with possible attempts at vascular access. Consider a small amount of bleeding or cellulitis. The soft tissues edema is in the area of the subclavian and axillary vein and artery. 2. No focal collection. Renal Ultrasound 11/10/22 08:05 IMPRESSION: 1. No hydronephrosis in either kidney. 2. Bilateral simple cysts as described above largest in the LEFT measuring 4.4 x 4.5 x 5.6 cm in the LEFT mid kidney 3. Merlos catheter. Neck CT 11/10/22 08:56 IMPRESSION: 1. Diffuse soft tissue edema extending from the LEFT posterior paravertebral cervical space at the skull base to the upper chest and upper back with fluid and soft tissue induration. Correlation for infection with cellulitis. Recommend MRI cervical spine without and with gadolinium enhancement to exclude cervical spine or LEFT facet involvement 2. No drainable fluid collections on this noncontrast study. 3. Reactive LEFT cervical lymph nodes. 4. Moderate to severe central canal stenosis due to disc osteophyte complexes at C5-C6 and C6-C7. Multilevel moderate to severe bony foraminal narrowing. Recommend follow-up cervical spine MRI. 5. No evidence of mediastinal abscess. 6. Mild ballooning of the RIGHT laryngeal ventricle can be seen with RIGHT vocal cord paralysis. Recommend direct visualization. Notified Fernando Valdez MD at 11/10/2022 11:[address] 11/10/22 08:56 IMPRESSION: 1. No visualized significant shoulder joint effusion or bony erosion. 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 2. Mild narrowing of the subacromial space. Rotator cuff appears grossly intact. 3. Cellulitis in the LEFT neck extending to the supra and infraclavicular soft tissues with slight induration extending into the thoracic inlet and LEFT upper mediastinum. This is also described on the neck CT. 4. LEFT basilar atelectasis Cervical Spine MRI 11/10/22 13:20 IMPRESSION: 1. This study is degraded by motion artifact. 2. No epidural fluid collections identified. Study compromised without IV contrast. IV contrast not possible due to elevated renal function studies. 3. Extensive soft tissue edema beginning at the skull base and extending predominantly along the LEFT neck into the posterior upper thorax. No focal collection. There is a small amount of edema noted along the RIGHT cervical chain also. Consider cellulitis. Rhabdomyolysis should also be considered in the correct clinical setting. Correlate with any possible history of recent surgery or attempted IV access. 4. C5-6 central stenosis due to disc and osteophyte disease. Limited evaluation and best seen on the sagittal sequence. Orbits/Face/Neck MRI 11/10/22 13:20 IMPRESSION: 1. Extensive soft tissue edema along the LEFT cervical chain as described above. No focal collection. Study is extremely limited as study was terminated due to motion artifact. 2. Consider cellulitis and rhabdomyolysis. Chest/Abdomen/Pelvis CT 11/11/22 12:09 IMPRESSION: 1. Small bilateral pleural effusions with compressive atelectasis in the lung bases new from previous. 2. Patchy infiltrates in the lung bases are new. Recommend correlation for pneumonia. 3. New groundglass subpleural airspace opacities in the RIGHT upper lobe anter iorly at the lung apex. This may be infectious or inflammatory but consider septic emboli or pulmonary infarcts. No cavitation. 4. No hydronephrosis in either kidney. New perirenal inflammatory stranding and edema can be seen with UTI or renal insufficiency. 5. Merlos catheter. Prostate enlargement. No evidence of prostatitis on this noncontrast study. 6. Sigmoid diverticulosis. 7. A few air-fluid levels in normal caliber transverse colon likely due to ileus. 8. No other acute findings. Notified Fernando Valdez MD at 11/11/2022 2:[address] 11/11/22 12:09 IMPRESSION: 1. No evidence of intracranial hemorrhage or mass effect. 2. Minimal small vessel changes with mild parenchymal volume loss. 3. No acute intracranial findings and no significant changes since November 09, 2022. Chest X-Ray 11/12/22 06:00 IMPRESSION: Interval worsening of bilateral airspace opacities, consistent with history of pneumonia. Superimposed pulmonary congestion can have this appearance. Recent Clincial Data Last Vital Signs Temp 101.3 F H 11/12/22 10:55 Pulse 112 H 11/12/22 10:55 Resp 32 H 11/12/22 10:55 BP 132/78 11/12/22 10:55 Pulse Ox 93 11/12/22 09:30 O2 Del Method Nasal Cannula 11/12/22 08:30 O2 Flow Rate 2 11/12/22 08:30 Vital Signs Temp Pulse Resp BP Pulse Ox O2 Del Method O2 Flow Rate 11/12/22 10:55 101.3 F H 112 H 32 H 132/78 11/12/22 10:40 101.1 F H 111 H 44 H 138/76 11/12/22 10:23 101.1 F H 115 H 36 H 128/71 11/12/22 09:30 114 H 34 H 122/72 93 11/12/22 09:15 114 H 37 H 133/70 95 11/12/22 09:00 109 H 30 H 128/68 93 11/12/22 08:45 110 H 34 H 122/67 100 11/12/22 08:30 108 H 29 H 116/67 100 11/12/22 08:15 112 H 33 H 117/83 100 11/12/22 08:00 113 H 33 H 125/70 100 11/12/22 08:43 111 H 11/12/22 08:30 110 H 28 H 100 Nasal Cannula 2 11/12/22 07:45 115 H 38 H 129/64 100 11/12/22 07:30 110 H 29 H 104/66 89 L 11/12/22 07:15 112 H 29 H 119/68 97 11/12/22 07:00 111 H 26 H 130/62 96 11/12/22 06:45 110 H 29 H 128/67 96 11/12/22 06:30 112 H 30 H 120/62 97 11/12/22 06:15 178 H 35 H 122/64 96 11/12/22 06:00 105 H 20 H 116/63 95 11/12/22 05:45 100.4 F H 116 H 30 H 116/61 95 11/12/22 05:30 115 H 20 H 117/65 95 11/12/22 05:15 117 H 33 H 103/68 95 11/12/22 05:00 100.2 F H 115 H 31 H 111/65 95 11/12/22 04:45 113 H 27 H 124/68 95 11/12/22 04:30 108 H 39 H 118/68 100 11/12/22 04:15 107 H 37 H 128/67 100 11/12/22 04:00 100.1 F H 108 H 33 H 122/65 100 11/12/22 06:00 114 H 11/12/22 04:00 99.9 F H 107 H 35 H 78/67 11/12/22 03:45 99.9 F H 107 H 35 H 78/67 100 11/12/22 03:30 107 H 32 H 119/67 89 L 11/12/22 03:15 104 H 29 H 118/66 99 11/12/22 03:00 100 24 H 121/69 96 11/12/22 02:45 105 H 30 H 121/66 95 11/12/22 02:30 107 H 34 H 106/64 96 11/12/22 02:15 103 H 35 H 112/67 98 11/12/22 02:00 105 H 32 H 117/67 96 11/12/22 01:45 100 38 H 112/69 97 11/12/22 01:30 102 H 30 H 113/67 96 11/12/22 01:15 102 H 33 H 110/69 97 11/12/22 01:00 103 H 34 H 122/67 96 11/12/22 00:45 103 H 37 H 118/69 96 11/12/22 00:40 99 29 H 118/69 97 11/12/22 00:35 102 H 32 H 118/69 98 11/12/22 00:30 105 H 37 H 126/71 96 11/12/22 00:25 103 H 28 H 126/71 98 11/12/22 00:20 103 H 38 H 126/71 97 11/12/22 00:15 100 29 H 122/71 96 11/12/22 00:10 104 H 22 H 122/71 98 11/12/22 00:05 102 H 30 H 122/71 98 11/12/22 00:00 101 H 31 H 112/67 98 11/11/22 23:55 103 H 29 H 112/67 97 11/11/22 23:50 106 H 33 H 112/67 97 11/11/22 23:45 103 H 32 H 119/66 97 11/11/22 23:40 101 H 31 H 119/66 98 11/11/22 23:35 101 H 28 H 119/66 97 11/11/22 23:30 106 H 35 H 114/61 96 11/11/22 23:25 102 H 29 H 114/61 98 11/12/22 01:42 102 H 28 H 97 Nasal Cannula 2 Intake & Output/Weight 11/10/22 11/11/22 11/12/22 11/13/22 06:59 06:59 06:59 06:59 Intake Total 2277.352 / 2277.352 6487.253 / 6487.253 5824.533 / 5824.533 150 / 150 Output Total 400 / 400 2250 / 2250 4650 / 4650 Balance 1877.352 / 8542.878 4320.253 / 4237.253 1174.533 / 1174.533 150 / 150 Weight 87.997 kg 88.451 kg Vitals Last Vital Signs Temp 101.3 F H 11/12/22 10:55 Pulse 112 H 11/12/22 10:55 Resp 32 H 11/12/22 10:55 BP 132/78 11/12/22 10:55 Pulse Ox 93 11/12/22 09:30 O2 Del Method Nasal Cannula 11/12/22 08:30 O2 Flow Rate 2 11/12/22 08:30 TS Medications Medications Acetaminophen (Acetaminophen 325 Mg Tablet) 650 mg PO Q6H PRN PRN Reason: Mild/Mod Pain Or Temp >/= 101 Last Admin: 11/09/22 23:05 Dose: 650 mg Acetaminophen (Acetaminophen 650 Mg Supp) 650 mg LA Q6H PRN PRN Reason: Fever Last Admin: 11/11/22 11:05 Dose: 650 mg Albuterol/Ipratropium (Ipratropium-Albuterol 3 Ml Neb) 3 ml INHALATION Q6H.RESP SAPPHIRE Last Admin: 11/12/22 08:41 Dose: 3 ml Aspirin (Aspirin 81 Mg Ec Tablet) 81 mg PO DAILY [facility] Last Admin: 11/12/22 09:15 Dose: 81 mg Atorvastatin Calcium (Atorvastatin 40 Mg Tablet) 40 mg PO BEDTIME [facility] Last Admin: 11/12/22 00:16 Dose: Not Given Camphor/Menthol/Phenol (Blistex Lip Oint 7 Gm Tube) 1 applic TOPICAL PRN PRN PRN Reason: DRYNESS Last Admin: 11/12/22 05:05 Dose: 1 applic Enoxaparin Sodium (Enoxaparin 100 Mg/Ml Syringe) 90 mg 1 mg/kg (90 mg) SUBCUT Q12H [facility] Last Admin: 11/12/22 09:15 Dose: 90 mg Albumin Human (Albumin) 25 g in 100 mls @ 60 mls/hr IV Q8H [facility] Last Infusion: 11/12/22 06:30 Dose: Infused Norepinephrine Bitartrate 4 mg (/ Dextrose) 254 mls @ 0 mls/hr IV .Q0M [facility]; Protocol Last Titration: 11/10/22 12:36 Dose: 0 mcg/min, 0 mls/hr Doxycycline Hyclate 100 mg/ (Sodium Chloride) 100 mls @ 100 mls/hr IV Q12H [facility]; Protocol Last Infusion: 11/12/22 06:30 Dose: Infused Sodium Bicarbonate 150 meq/ (Dextrose) 1,150 mls @ 100 mls/hr IV .[id number] [facility] Last Admin: 11/12/22 08:24 Dose: Not Given Acyclovir 1,000 mg/ Sodium (Chloride) 270 mls @ 270 mls/hr IV Q8H [facility] Last Infusion: 11/12/22 06:30 Dose: Infused Dexmedetomidine HCl 400 mcg/ (Sodium Chloride) 104 mls @ 0 mls/hr IV .Q0M [facility]; Protocol Dextrose/Sodium Chloride (Dextrose 5%-Sod Chloride 0.9%) 1,000 mls @ 50 mls/hr IV .Q20H [facility] Last Admin: 11/11/22 17:18 Dose: 50 mls/hr Micafungin Sodium 100 mg/ (Sodium Chloride) 100 mls @ 100 mls/hr IV Q24H [facility] Last Infusion: 11/12/22 10:36 Dose: Infused Ceftriaxone Sodium 1,000 mg/ (Sodium Chloride) 50 mls @ 100 mls/hr IV Q24H [facility]; Protocol Last Infusion: 11/12/22 10:37 Dose: Infused Ondansetron HCl (Ondansetron 2 Mg/Ml Sdv 2 Ml) 4 mg IVP Q8H PRN PRN Reason: vomiting, or N/V if npo Pantoprazole Sodium (Pantoprazole 40 Mg Sdv) 40 mg IVP Q24H [facility] Last Admin: 11/11/22 19:42 Dose: 40 mg Discontinued Medications Albuterol/Ipratropium (Ipratropium-Albuterol 3 Ml Neb) 3 ml INHALATION Q4H.RESPIRATORY [facility] Last Admin: 11/10/22 07:58 Dose: 3 ml Dextrose (Dextrose 50% Syringe 50 Ml) 50 ml IVP ONCE ONE Stop: 11/10/22 02:16 Last Admin: 11/10/22 07:39 Dose: Not Given Enoxaparin Sodium (Enoxaparin 40 Mg/0.4 Ml Syringe) 40 mg SUBCUT Q24H [facility] Last Admin: 11/09/22 21:23 Dose: 40 mg Enoxaparin Sodium (Enoxaparin 30 Mg/0.3 Ml Syringe) 30 mg SUBCUT Q24H [facility] Enoxaparin Sodium (Enoxaparin 100 Mg/Ml Syringe) 90 mg 1 mg/kg (90 mg) SUBCUT ONCE ONE Stop: 11/11/22 18:26 Last Admin: 11/11/22 19:42 Dose: 90 mg Furosemide (Furosemide 10 Mg/Ml Sdv 4ml) 40 mg IVP ONCE ONE Stop: 11/11/22 11:48 Last Admin: 11/11/22 11:54 Dose: 40 mg Haloperidol Lactate (Haloperidol Inj 5 Mg/Ml Inj 1 Ml) 2 mg IM NOW ONE Stop: 11/11/22 03:25 Last Admin: 11/11/22 03:30 Dose: 2 mg Heparin Sodium (Porcine) (Heparin 5,000 Unit/Ml Inj 1 Ml) 0 unit IV PRN PRN; Protocol PRN Reason: Heparin weight-base protocol Last Admin: 11/10/22 13:28 Dose: 4,900 unit Hydrocortisone Sodium Succinate (Hydrocortisone 100 Mg/2 Ml Sdv) 100 mg IVP ONCE ONE Stop: 11/09/22 19:52 Hydrocortisone Sodium Succinate (Hydrocortisone 250 Mg/2 Ml Sdv) 100 mg IVP ONCE ONE Stop: 11/09/22 23:01 Last Admin: 11/09/22 23:05 Dose: 100 mg Hydrocortisone Sodium Succinate (Hydrocortisone 250 Mg/2 Ml Sdv) 100 mg IVP ONCE ONE Stop: 11/10/22 09:16 Last Admin: 11/10/22 09:32 Dose: 100 mg Hydrocortisone Sodium Succinate (Hydrocortisone 100 Mg/2 Ml Sdv) 100 mg IVP Q12H [facility] Hydrocortisone Sodium Succinate (Hydrocortisone 250 Mg/2 Ml Sdv) 100 mg IVP Q12H [facility] Last Admin: 11/10/22 21:51 Dose: 100 mg Levofloxacin/Dextrose (Levaquin-D5w) 750 mg in 150 mls @ 100 mls/hr IV ONCE ONE; Protocol Stop: 11/09/22 17:56 Last Infusion: 11/10/22 03:09 Dose: Infused Sodium Chloride (Sodium Chloride 0.9%) 2,449.41 mls @ 2,449.41 mls/hr 30 ml/kg infuse over 1 hr (2449.41 ml) IV .Q1H ONE Stop: 11/09/22 17:28 Last Infusion: 11/10/22 07:40 Dose: Infused Meropenem 1,000 mg/ Sodium (Chloride) 50 mls @ 100 mls/hr IV Q8H [facility]; Protocol Last Infusion: 11/10/22 04:36 Dose: Infused Sodium Chloride (Sodium Chloride 0.9%) 1,000 mls @ 125 mls/hr IV .Q8H [facility] Last Infusion: 11/10/22 07:40 Dose: Infused Lidocaine HCl 5 ml/ Potassium (Chloride) 105 mls @ 26.25 mls/hr IV ONCE ONE Stop: 11/09/22 23:50 Last Infusion: 11/10/22 03:09 Dose: Infused Vancomycin/PEG/NADA/Lysine/Water (Vancocin) 1,250 mg in 250 mls @ 250 mls/hr IV Q36H [facility] Last Infusion: 11/11/22 12:06 Dose: Infused Acetaminophen (Acetaminophen) 1,000 mg in 100 mls @ 400 mls/hr IV ONCE ONE Stop: 11/10/22 00:20 Last Infusion: 11/10/22 03:10 Dose: Infused Sodium Bicarbonate 150 meq/ (Dextrose) 1,150 mls @ 50 mls/hr IV .Q23H [facility] Last Infusion: 11/10/22 12:36 Dose: Infused Magnesium Sulfate 1 gm/ Sodium (Chloride) 52 mls @ 104 mls/hr IV ONCE ONE Stop: 11/10/22 02:46 Last Infusion: 11/10/22 07:40 Dose: Infused Dextrose 35.5 ml/ Sterile (Water 14.5 ml/ N/A) 50 mls @ 600 mls/hr IVP ONCE ONE Stop: 11/10/22 03:19 Last Infusion: 11/10/22 07:40 Dose: Infused Sodium Chloride (Sodium Chloride 0.9%) 1,000 mls @ 75 mls/hr IV .[id number] [facility] Last Infusion: 11/11/22 07:21 Dose: Infused Meropenem 1,000 mg/ Sodium (Chloride) 50 mls @ 100 mls/hr IV Q12H [facility]; Protocol Last Infusion: 11/12/22 06:30 Dose: Infused Magnesium Sulfate 1 gm/ Sodium (Chloride) 52 mls @ 104 mls/hr IV ONCE ONE Stop: 11/10/22 12:29 Last Infusion: 11/10/22 12:30 Dose: Infused Heparin Sodium/Sodium Chloride (Heparin Drip) 25,000 unit in 500 mls @ 0 mls/hr IV .Q0M [facility]; Protocol Last Titration: 11/11/22 18:25 Dose: 0 unit/kg/hr, 0 mls/hr Clindamycin HCl/Dextrose (Cleocin) 600 mg in 50 mls @ 100 mls/hr IV Q8H [facility]; Protocol Last Infusion: 11/12/22 06:29 Dose: Infused Magnesium Sulfate 1 gm/ Sodium (Chloride) 52 mls @ 104 mls/hr IV ONCE ONE Stop: 11/10/22 16:29 Last Infusion: 11/10/22 17:16 Dose: Infused Acetaminophen (Acetaminophen) 500 mg in 50 mls @ 400 mls/hr IV Q8H [facility] Stop: 11/11/22 05:23 Acetaminophen (Acetaminophen) 500 mg in 50 mls @ 400 mls/hr IV Q8H PRN PRN Reason: FEVER Last Infusion: 11/11/22 04:40 Dose: Infused Magnesium Sulfate (Magnesium Sulfate Premix) 2 gm in 50 mls @ 50 mls/hr IV ONCE ONE Stop: 11/11/22 08:37 Last Infusion: 11/11/22 08:58 Dose: Infused Vancomycin/PEG/NADA/Lysine/Water (Vancocin) 1,250 mg in 250 mls @ 250 mls/hr IV Q24H [facility] Potassium Chloride (K-Alexander) 100 mls @ 25 mls/hr IV ONCE ONE Stop: 11/11/22 21:57 Last Infusion: 11/12/22 06:31 Dose: Infused Acetaminophen (Acetaminophen) 1,000 mg in 100 mls @ 400 mls/hr IV ONCE ONE Stop: 11/11/22 18:39 Last Infusion: 11/12/22 06:31 Dose: Infused Caspofungin 70 mg/ Sodium (Chloride) 250 mls @ 250 mls/hr IV ONCE ONE Stop: 11/12/22 08:15 Caspofungin 50 mg/ Sodium (Chloride) 250 mls @ 250 mls/hr IV Q24H [facility] Iohexol (Iohexol 350 Mg/Ml 500 Ml Btl (Per Ml)) 0 ml IV ONCE ONE Stop: 11/09/22 17:57 Last Admin: 11/09/22 17:57 Dose: 100 ml Lorazepam (Lorazepam 2 Mg/Ml Inj 1 Ml) 1 mg IVP NOW ONE Stop: 11/10/22 13:33 Last Admin: 11/10/22 13:43 Dose: 1 mg Lorazepam (Lorazepam 2 Mg/Ml Inj 1 Ml) Confirm Administered Dose 2 mg .ROUTE .STK-MED ONE Stop: 11/10/22 14:47 Lorazepam (Lorazepam 2 Mg/Ml Inj 1 Ml) 0.5 mg IVP NOW ONE Stop: 11/10/22 15:09 Last Admin: 11/10/22 15:41 Dose: 0.5 mg Ondansetron HCl (Ondansetron 2 Mg/Ml Sdv 2 Ml) 4 mg IVP Q6H PRN PRN Reason: NAUSEA AND VOMITING Sodium Bicarbonate (Sodium Bicarbonate 1 Meq/Ml Sdv 50ml) 50 meq IVP ONCE ONE Stop: 11/09/22 20:16 Last Admin: 11/09/22 21:20 Dose: 50 meq Allergies lorazepam [From Ativan] Allergy (Verified 11/10/22 19:22) Unknown Patient received ativan today.Per family request they would like team to be aware that patient reacts sensitively to ativan. Home Medications acetaminophen 325 mg capsule (Tylenol) 650 mg PO QID PRN Pain 11/09/22 [History Confirmed 11/09/22] finasteride 5 mg tablet 5 mg PO QPM 11/09/22 [History Confirmed 11/09/22] hydrochlorothiazide 50 mg tablet 25 mg PO BID 11/09/22 [History Confirmed 11/09/22] naproxen sodium 220 mg capsule (Aleve) 220 mg PO Q8H PRN Pain 11/09/22 [History Confirmed 11/09/22] nortriptyline 10 mg capsule 30 mg PO DAILY 11/09/22 [History Confirmed 11/09/22] potassium chloride 20 mEq tablet,extended release(part/cryst) 20 meq PO DAILY 11/09/22 [History Confirmed 11/09/22] Discharge Plan Discharge Condition: Stable Prescriptions: No Action hydrochlorothiazide 50 mg tablet 25 mg PO BID potassium chloride 20 mEq tablet,ER particles/crystals 20 meq PO DAILY nortriptyline 10 mg capsule 30 mg PO DAILY finasteride 5 mg tablet 5 mg PO QPM Tylenol 325 mg Capsule 650 mg PO QID PRN (Reason: Pain) Aleve 220 mg Capsule 220 mg PO Q8H PRN (Reason: Pain) Patient Instructions: Hyponatremia (ED), Benzodiazepine Use Disorder (ED), Dementia (ED), Non-diabetic Hypoglycemia (ED), Hypoglycemia in a Person with Diabetes (ED), Concussion (ED), Alcohol Intoxication (ED), Subarachnoid Hemorrhage (GEN), Altered Mental Status (ED), Opioid Safety Transfer Attestations Time Spent in Transfer Care: greater than 30 min Quality Metrics Clinical Quality Measures [ No reported AMI, CVA or VTE this stay] Coding Level of Care Code Critical Care >/= 30 minutes Critical care time (in minutes): 45 The high probability of a clinically significant, sudden or life threatening deterioration, as referenced in this documentation, required my full and direct attention, intervention and personal management. The critical care time shown is in addition to time spent performing any reported separately billable procedures and includes the following: [x] Data and vital sign review and interpretation [x ] Patient assessment, examination and intervention [x] Medication orders and management [x] Patient/Family updates as able [x] Care Coordination and Documentation. Diagnoses Troponin level elevated R77.8 Acute renal failure N17.9 Septic shock A41.9; R65.21 Lactic acidosis E87.20 Acute encephalopathy G93.40 Urinary tract infection N39.0
[2022-11-12] MEDS: dextrose 5%-sod chloride 0.9% 1,000 ML 50 ML IV (12:20)
--- NOTE | 2022-11-12 12:45 | PC.SOCIAL ---
Imm update Imm updated with patient's . Copy of page 2 provided. Dulce verbalized understanding. Copy in chart initialed,dated and timed.
[2022-11-12 13:24] LABS: Lyme AB Screen <0.90 index
[2022-11-12 15:06] LABS: HSV 2 IGG Type Specific AB <0.90 index
--- NOTE | 2022-11-12 17:13 | PC.NURSE ---
Patient received transfer orders to [facility]. Family aware, called report awaiting [facility] transfer to accepting facility
--- NOTE | 2022-11-12 17:58 | PC.NURSE ---
Patient left with EMS at 1758.
--- NOTE | 2022-11-12 18:20 | P.PN_ITS ---
Subjective Subjective: febrile Medications: Reviewed: Yes Vitals/I&O/Wt Last Vital Signs Temp 101.5 F H 11/12/22 17:59 Pulse 113 H 11/12/22 17:59 Resp 36 H 11/12/22 17:59 BP 121/73 11/12/22 17:59 Pulse Ox 96 11/12/22 17:59 O2 Del Method Nasal Cannula 11/12/22 13:40 O2 Flow Rate 1 11/12/22 13:40 11/12/22 11/12/22 11/12/22 06:59 14:59 22:59 Intake Total 770 / 5824.533 0 Output Total 750 / 4650 1300 / 1300 Balance 20 / 5977.539 4010 -1300 / 716.667 Weight last 48 hrs Weight 88.451 kg Physical Exam Urinary Catheter Management: Merlos: Cath Placed During This Visit: yes Reason for Continuing Indwelling Catheter: Accurate Measurement of Urinary Outpu t in Critically Ill Patients Urinary Catheter Date of Insertion: 11/09/22 Urinary Catheter Time of Insertion: 18:54 Data 11/12/22 02:24 11/12/22 02:24 Micro: Microbiology 11/11/22 08:57 Urine Culture - Preliminary Urine Catheterized 11/11/22 11:17 Blood Culture - Preliminary Blood NEGATIVE TO DATE 11/11/22 11:15 Blood Culture - Preliminary Blood NEGATIVE TO DATE A&P Assessment and plan (1) Acute renal failure: Plan 1. Acute kidney injury: No prior labs available to compare for baseline. Presented with a creatinine of 3.1 improved to 2.3 currently SOUMYA likely from ATN from sepsis and possible urinary retention. -Renal function has improved, has adequate urine output, continue to monitor -No indication for renal replacement therapy, , c/w IV bicarbonate drip due to severe metabolic acidosis. -Avoid nephrotoxins and IV contrast studies. 2. Septic shock: possible pyelonephritis and aspiration pneumonia,? other etiologies , further work-up is in progress, lumbar puncture ordered, Lyme serologies pending 3. Respiratory failure: Stable currently on 4 L nasal cannula 4 Anion gap metabolic acidosis: Secondary to lactic acidosis, other etiologies reviewed c/w Bicarbonate drip 5. Left kidney complex cyst and subcentimeter kidney stones, outpatient urology follow-up Patient evaluated using audiovisual cart. Time spent 45 minutes Attestations Medical Necessity Statement*: per medicine Coding Level of Care Code Acute Code for Chg Fwd Diagnoses Acute renal failure N17.9
[2022-11-13 15:35] LABS: Osmolality Urine 545 mOsm/kg (50-1200)
[2022-11-15 00:55] LABS: Ethylene Glycol <10.0 mg/L (***)
[2022-11-17 18:19] LABS: Aspergillus AG,EIA,Serum NOT DETECTED; Aspergillus Galactomannan Inde <0.50
[2022-11-18 11:31] LABS: Miscellaneous Test SEE COMMENTS
[2022-11-18 13:03] LABS: Ureaplasma Parvaum DNA NOT DETECTED; Ureaplasma Urealyticum DNA NOT DETECTED
[2022-11-18 16:50] LABS: E. Chaffeensis AB IGG <1:64; E. Chaffeensis AB IGM <1:20
[2022-11-18 17:54] LABS: Fungitell 1-3-B Glucan Assay 31 pg/mL; Interpretation NEGATIVE
[2022-11-18 18:20] LABS: RMSF IGG NOT DETECTED; RMSF IGM NOT DETECTED
[2022-11-19 12:29] LABS: Herpes Simplex I IGM AB Screen NEGATIVE; Herpes Simplex II IGM AB Scr NEGATIVE
[2022-11-20 21:15] LABS: Francisella Tularensis DA <1:20 titer
[2023-03-02 16:01] LABS: Heparin Induced Platelet AB NEGATIVE; Patient O.D 0.049; UFH High Dose, 100 IU/ML 0; UFH Low Dose, 0.1 IU/ML 0; UFH Low Dose, 0.5 IU/ML 0; UFH SRA Result NEGATIVE
[2023-07-15 15:34] LABS: Ehrlichia Ab Igg <1:64
== END 2022-11-12 17:58 | disposition short-term general hospital (02) | DRG 871 ==
LOC: ER 16:48 → ICU 17:56
PROVIDERS: Internal Medicine; Admitting Provider Family Medicine; Emergency Provider Family Medicine; Visit Provider Family Medicine
DX: A41.9 Sepsis, unspecified organism (principal); D65 Disseminated intravascular coagulation [defibrination syndrome]; R65.21 Severe sepsis with septic shock; G93.41 Metabolic encephalopathy; J69.0 Pneumonitis due to inhalation of food and vomit; I21.4 Non-ST elevation (NSTEMI) myocardial infarction; J96.01 Acute respiratory failure with hypoxia; N39.0 Urinary tract infection, site not specified; N17.9 Acute kidney failure, unspecified; N10 Acute pyelonephritis; E87.20 Acidosis, unspecified; L03.221 Cellulitis of neck; I24.8 Other forms of acute ischemic heart disease; I10 Essential (primary) hypertension; N40.1 Benign prostatic hyperplasia with lower urinary tract symptoms; R33.8 Other retention of urine; M25.512 Pain in left shoulder; I95.9 Hypotension, unspecified; R21 Rash and other nonspecific skin eruption; I25.10 Atherosclerotic heart disease of native coronary artery without angina pectoris; D69.6 Thrombocytopenia, unspecified; E87.6 Hypokalemia; N20.0 Calculus of kidney
CPT/HCPCS: 12345; 36415; 36416; 36430; 36569; 36600; 51702; 70336; 70450; 70490; 71045; 71250; 71275; 72141; 73200; 74176; 74177; 76705; 76770; 76882; 80048; 80051; 80053; 80061; 80074; 80306; 80307; 80503; 81001; 82140; 82150; 82330; 82533; 82550; 82693; 82728; 82803; 82805; 82962; 83010; 83036; 83605; 83615; 83690; 83735; 83880; 83935; 84100; 84145; 84443; 84484; 84540; 85007; 85025; 85362; 85378; 85384; 85610; 85651; 85730; 86000; 86140; 86403; 86618; 86666; 86695; 86696; 86757; 86900; 87040; 87086; 87305; 87449; 87486; 87581; 87633; 87641; 87798; 87806; 92507; 92523; 92526; 92610; 93005; 93306; 93970; 94640; 96365; 96372; 96376; 99285; C1751; C9113; J0131; J0133; J0696; J1630; J1644; J1650; J1720; J1940; J1956; J2060; J2185; J2248; J3370; J3475; J3480; J3490; J7030; J7042; J7050; J7060; J7070; P9035; P9046; Q3014; Q9967

== ENCOUNTER → 2024-03-13 09:49 | Outpatient (BNVA) | payer MEDICARE, SELFPAY | PROVIDERS: PCP Family Medicine; Visit Provider Family Medicine | DX: I10 Essential (primary) hypertension (principal) | CPT/HCPCS: 80053; 80061; 84439; 84443; 85025 ==

== ENCOUNTER → 2025-02-08 10:38 | Outpatient (BNVA) | payer MEDICARE, SELFPAY | PROVIDERS: PCP Family Medicine; Visit Provider Family Medicine | DX: E55.9 Vitamin D deficiency, unspecified (principal); I10 Essential (primary) hypertension; N40.0 Benign prostatic hyperplasia without lower urinary tract symptoms; Z12.5 Encounter for screening for malignant neoplasm of prostate; A41.9 Sepsis, unspecified organism | CPT/HCPCS: 80053; 80061; 82306; 82607; 84153; 84439; 84443; 85025 ==